=== PATIENT | female | born 1955 | race American Indian/Alaskan Native ===

== ENCOUNTER 2018-01-02 13:19 | Inpatient (IN) | payer MEDICARE ==
[2018-01-02] MEDS ORDERED: TYLENOL PO ONE (13:55)
--- NOTE | 2018-01-02 13:55 | Emergency Department Report ---
ED Fall HPI - General Chief Complaint: Fall Stated Complaint: MISSED DIALYSIS Time Seen by Provider: 01/02/18 13:50 Source: patient, EMS Mode of arrival: Stretcher Limitations: No Limitations - History of Present Illness Initial Comments: Patient said 3 days ago while she was sleeping on her bed at home, suddenly she got startled by her Cat. She got up quickly from bed and she fell hitting her face. Because of that she was to sore to go to dialysis yesterday. Patient says she is having shortness of breath and she is not dialysis yesterday. 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 (3) Fall Witnessed: no Place Fall Occurred: home Loss of Consciousness: none Prolonged Down Time?: no Symptoms Prior to Fall: none Location: head, face, neck Severity: moderate Severity scale (0 -10): 5 Quality: sharp Context: other (Fell out of bed) Associated Symptoms: headache, neck pain, shortness of breath, other (Facial Pain) - Related Data Allergies Allergy/AdvReac Type Severity Reaction Status Date / Time No Known Allergies Allergy Unverified 01/02/18 13:47 ED Review of Systems ROS: Stated complaint: MISSED DIALYSIS Other details as noted in HPI Comment: All other systems reviewed and negative Constitutional: denies: chills, fever Eyes: denies: eye pain ENT: other (Facial pain). denies: ear pain Respiratory: orthopnea, shortness of breath, SOB with exertion, SOB at rest. denies: cough Cardiovascular: orthopnea. denies: chest pain, palpitations, dyspnea on exertion, edema, syncope Endocrine: no symptoms reported Gastrointestinal: vomiting, constipation. denies: abdominal pain, nausea, diarrhea Genitourinary: denies: urgency, dysuria, frequency Musculoskeletal: denies: back pain Skin: denies: rash, lesions, change in color Neurological: headache. denies: weakness, numbness, paresthesias, confusion, abnormal gait Psychiatric: denies: anxiety, depression Hematological/Lymphatic: denies: easy bleeding, easy bruising ED Past Medical Hx - Past Medical History Previous Medical History?: Yes Hx Hypertension: Yes Hx Diabetes: Yes Hx Renal Disease: Yes - Surgical History Past Surgical History?: Yes - Social History Smoking Status: Never Smoker Substance Use Type: None ED Physical Exam - General Limitations: No Limitations, Other General appearance: alert, in no apparent distress - Head Head exam: Present: atraumatic, normocephalic, normal inspection - Eye Eye exam: Present: normal appearance, PERRL, EOMI Pupils: Present: normal accommodation - ENT ENT exam: Present: normal exam, normal orophraynx, mucous membranes moist - Neck Neck exam: Present: normal inspection, tenderness, full ROM - Respiratory Respiratory exam: Present: normal lung sounds bilaterally. Absent: respiratory distress, wheezes, rales, rhonchi, stridor - Cardiovascular Cardiovascular Exam: Present: regular rate, normal rhythm, normal heart sounds - GI/Abdominal GI/Abdominal exam: Present: soft, normal bowel sounds. Absent: distended, tenderness, guarding, rebound, rigid - Extremities Exam Extremities exam: Present: normal inspection, full ROM, normal capillary refill. Absent: tenderness, pedal edema, joint swelling, calf tenderness - Back Exam Back exam: Present: normal inspection, full ROM. Absent: tenderness, CVA tenderness (R), CVA tenderness (L), paraspinal tenderness, vertebral tenderness - Neurological Exam Neurological exam: Present: alert, oriented X3, CN II-XII intact - Psychiatric Psychiatric exam: Present: normal affect, normal mood - Skin Skin exam: Present: warm, dry, intact, normal color. Absent: rash ED Course Vital Signs 01/02/18 01/02/18 01/02/18 13:44 15:34 16:44 Temperature 98 F 97.4 F L Pulse Rate 66 70 71 Pulse Rate [ Anterior Bilateral Throughout] Respiratory 16 20 Rate Respiratory Rate [Anterior Bilateral Throughout] Blood Pressure 174/92 202/75 Blood Pressure [223/100] O2 Sat by Pulse 98 95 Oximetry 01/02/18 01/02/18 01/02/18 17:20 17:31 17:45 Temperature Pulse Rate 84 86 Pulse Rate [ 84 Anterior Bilateral Throughout] Respiratory Rate Respiratory 20 Rate [Anterior Bilateral Throughout] Blood Pressure Blood Pressure 135/69 117/74 [223/100] O2 Sat by Pulse Oximetry 01/02/18 01/02/18 01/02/18 17:50 19:30 19:45 Temperature 97.7 F Pulse Rate 84 80 Pulse Rate [ 90 Anterior Bilateral Throughout] Respiratory 15 Rate Respiratory 20 Rate [Anterior Bilateral Throughout] Blood Pressure 105/50 125/66 Blood Pressure [223/100] O2 Sat by Pulse Oximetry 01/02/18 20:00 Temperature Pulse Rate 85 Pulse Rate [ Anterior Bilateral Throughout] Respiratory Rate Respiratory Rate [Anterior Bilateral Throughout] Blood Pressure 111/61 Blood Pressure [223/100] O2 Sat by Pulse Oximetry - Reevaluation(s) Reevaluation #1: 01/02/18 17:15 I consulted the wastewater project manager reconditioner Dr Rudd. She agreed with the medical management being given to the patient by me in the emergency room currently. She said she will send the dialysis nurse to dialyze the patient immediately. I also consulted the industrial controller reconditioner Dr. Dove. I sent the patient's EKG to him and he over read the EKG and said the patient is not having a myocardial infarction currently. He also agreed with the management being given to the patient in the ED currently. I consulted the hospitalist on-call Dr. Ta and discussed the patient care with him. He will rule out admitted patient to the hospital for further evaluation and management. ED Medical Decision Making - Lab Data Result diagrams: 01/02/18 15:30 01/02/18 16:09 - EKG Data -: EKG Interpreted by Me EKG shows normal: sinus rhythm Rate: normal (65) - EKG Data When compared to previous EKG there are: previous EKG unavailable Interpretation: nonspecific ST-T wave oj, LVH, other (Q waves in the anterior leads. ) - Radiology Data Radiology results: report reviewed, image reviewed - Medical Decision Making S/P Fall. ESRD on Hemodialysis. Head Injury. Critical Care Time: Yes Critical care time in (mins) excluding proc time.: 68 Critical care attestation.: If time is entered above; I have spent that time in minutes in the direct care of this critically ill patient, excluding procedure time. Multiple consultants with different specialties was done by me. Review of labs , EKG, radiology report etc. Multiple bedside evaluations was also done by me. ED Disposition Clinical Impression: ESRD (end stage renal disease) on dialysis, Acute hyperkalemia, Elevated troponin level, Electrolyte imbalance, Metabolic acidosis Fall Qualifiers: Encounter type: initial encounter Qualified Code(s): W19.XXXA - Unspecified fall, initial encounter Facial contusion Qualifiers: Encounter type: initial encounter Qualified Code(s): S00.83XA - Contusion of other part of head, initial encounter Disposition: DC-09 OP ADMIT IP TO THIS HOSP Is pt being admited?: Yes Does the pt Need Aspirin: No Condition: Stable Time of Disposition: 17:20
--- NOTE | 2018-01-02 15:11 | XRay Report ---
FINAL REPORT EXAM: XR CHEST 1V AP HISTORY: Fall TECHNIQUE: Frontal chest x-ray performed portably and upright Comparison: None FINDINGS: Heart size is upper limits normal. There is a split dual lumen catheter present tips in the region of the cavoatrial junction. No focal infiltrate. No pneumothorax. No pulmonary vascular congestion. No pneumothorax. The proximal catheter ports project over the right lung base obscuring some of the details. Right acromioclavicular degenerative arthritis. IMPRESSION: Heart size upper limits normal. Nonacute chest. Proximal right Port-A-Cath somewhat obscures the right lung base. No pneumothorax. No definite displaced rib fractures, limited assessment on a portable chest x-ray in a patient with larger body habitus.
[2018-01-02 15:37] LABS: Basophils # (Auto) 0.1 K/mm3 (0.0-0.1); Basophils % (Auto) 0.6 % (0.0-1.8); Eosinophils % (Auto) 0.4 % (0.0-4.3); Hematocrit 34.1 % (30.3-42.9); Hemoglobin 10.7 gm/dl (10.1-14.3); Lymphocytes # (Auto) 1.1 K/mm3 (1.2-5.4); Lymphocytes % (Auto) 13.1 % (13.4-35.0); Mean Corpuscular HGB Conc 31 % (30-34); Mean Corpuscular Hemoglobin 30 pg (28-32); Mean Corpuscular Volume 94 fl (79-97); Monocytes # (Auto) 0.4 K/mm3 (0.0-0.8); Monocytes % (Auto) 4.8 % (0.0-7.3); Platelet Count 309 K/mm3 (140-440); Red Blood Count 3.62 M/mm3 (3.65-5.03); Red Cell Distribution Width 18.8 % (13.2-15.2)
[2018-01-02 16:03] LABS: INR 1.04 (0.87-1.13)
[2018-01-02 16:04] LABS: Partial Thromboplastin Time 34.3 Sec. (24.2-36.6)
[2018-01-02 16:28] LABS: Chol/HDL Ratio 3.54 %
[2018-01-02] MEDS ORDERED: APRESOLINE IV ONE (16:30)
[2018-01-02 16:32] LABS: Albumin 4.3 g/dL (3.9-5); Calcium 9.3 mg/dL (8.4-10.2)
[2018-01-02] MEDS ORDERED: KIONEX PR ONE (16:56)
[2018-01-02] MEDS ORDERED: PROVENTIL IH ONE (16:56)
[2018-01-02] MEDS ORDERED: D50W (25GM) Syringe IV ONE ×2 (16:57)
[2018-01-02] MEDS ORDERED: NACL 0.9% 100 ML IV PRN ×3 (17:19→20:31)
[2018-01-02] MEDS ORDERED: HumuLIN R IV ONE (17:20)
[2018-01-02] MEDS ORDERED: HumuLIN R ONE (17:23)
--- NOTE | 2018-01-02 17:26 | Consultation ---
History of Present Illness - Reason for Consult Consult date: 01/02/18 end stage renal disease, hyperkalemia - History of Present Illness Mrs. Lyons is a 62yo with ESRD on HD TTS who presented to the ED with shortness of breath Her last dialysis treatment was on . She reports fall at home w/ facial injury that evening. She did not go to dialysis on Wednesday as she was instructed by her outpatient dialysis clinic that she would need to go to the ED for evaluation/clearance prior to receiving dialysis. Of note, Mrs. Lyons only dialyzes appx 1.5 hours instead of prescribed treatment time due to headaches during dialysis. Labs in the ED notable for K 8.9 Past History Past Medical History: diabetes, ESRD, hypertension Social history: no significant social history Family history: no significant family history Medications and Allergies Allergies Allergy/AdvReac Type Severity Reaction Status Date / Time No Known Allergies Allergy Unverified 01/02/18 13:47 Active Meds: Active Medications Calcium Gluconate 1,000 mg/ (Sodium Chloride) 110 mls @ 660 mls/hr IV ONCE.ED ONE Stop: 01/02/18 18:09 Sodium Bicarbonate (Sodium Bicarbonate) 50 meq IV ONCE ONE Stop: 01/02/18 18:01 Review of Systems All systems: negative Exam - Vital Signs Vital signs: Vital Signs Temp Pulse Resp BP Pulse Ox 98 F 66 16 174/92 98 01/02/18 13:44 01/02/18 13:44 01/02/18 13:44 01/02/18 13:44 01/02/18 13:44 - General Appearance General appearance: well-developed, well-nourished, other (uremic fetor) EENT: ATNC Respiratory: Clear to Ascultation Heart: regular, S1S2 Gastrointestinal: Present: normal. Absent: tenderness, distended Integumentary: no rash, warm and dry Musculoskeletal: Present: other (+trace edema) Psychiatric: cooperative Results - Lab Results 01/02/18 15:30 01/02/18 16:09 Most recent lab results Calcium 9.3 mg/dL (8.4-10.2) 01/02/18 16:09 Assessment and Plan Assesment: * End stage renal disease * Severe hyperkalemia * Uremia * Hypertension * Medical noncompliance Plan: * STAT dialysis ordered - patient to dialyze in ED or in ICU; due to K 8.9 w/ EKG changes, will not dialyze patient in dialysis unit - discussed with ED charge authorizer and hospitality house supervisor * Medical management of lytes per ED MD * Repeat BMP following dialysis treatment * Will plan for dialysis in the AM * Renal diet * Dose medications for renal function
--- NOTE | 2018-01-02 17:27 | Cat Scan Report ---
FINAL REPORT PROCEDURE: CT CERVICAL SPINE WO CON TECHNIQUE: Computerized tomography of the cervical spine was performed from the skull base to T1 without contrast material. HISTORY: Fall COMPARISON: No prior studies are available for comparison. FINDINGS: There is no evidence of acute fracture or subluxation. Moderate facet arthritis visualized on the left C5-C6. Posterior elements appear intact. There appears to be separate ossification center of the posterior aspect of the posterior spinous process of C7. The prevertebral soft tissues appear normal. There appears to be an osteophytic spur projecting inferiorly from the anterior ring of C1. This appears to be separate from the anterior ring of C1 although without hematoma or significant soft tissue swelling. This may related to previous fracture of the osteophyte. The ring of C1 and dens appear to be intact. This is best visualized on sagittal reconstruction image 72 series 602. No focal disc herniation or spinal stenosis is visualized. Calcifications are seen in the bryant of the right carotid artery indicating atherosclerotic disease. A portion of central venous line entering from the right partially visualized. IMPRESSION: Facet arthritis as described. No definite acute fracture or subluxation is seen. Osteophytic spur appears to project inferiorly from the anterior ring of C1. This is best visualized on the sagittal views. This appears to be separate from the anterior ring of C1 although without hematoma or significant soft tissue swelling. This may be related to previous fracture of the osteophyte. The ring of C1 and the dens however appear intact. Correlation with clinical presentation and physical exam recommended. If further evaluation is clinically indicated MRI of the cervical spine could be obtained. Central venous line partially visualized. Atherosclerosis right carotid artery.
--- NOTE | 2018-01-02 17:28 | Cat Scan Report ---
FINAL REPORT PROCEDURE: CT HEAD/BRAIN WO CON TECHNIQUE: Computerized tomography of the head was performed without contrast material. HISTORY: Trauma. Fell. Pain. COMPARISON: No prior studies are available for comparison. FINDINGS: Brain: There is no evidence of intracranial hemorrhage. No parenchymal hemorrhage is seen. No mass lesions or mass effect is identified. No abnormal extra-axial fluid collections or masses are seen. There is some decreased density seen in the periventricular white matter without mass effect. This is fairly symmetric and does not exhibit any mass effect consistent with gliosis probably on the basis of microvascular disease or white matter changes of aging. Ventricles: The ventricles, sulcal pattern and fissures are prominent consistent with atrophy. Bones: No evidence of acute fracture. Paranasal sinuses: Visualized portions are clear. Mastoid air cells: clear IMPRESSION: There is evidence of mild atrophy and gliosis. No acute abnormalities are seen. No evidence of intracranial hemorrhage or skull fracture
--- NOTE | 2018-01-02 17:39 | Cat Scan Report ---
FINAL REPORT PROCEDURE: CT FACIAL BONES WO CON TECHNIQUE: Computerized tomography of the facial bones and soft tissues with axial and coronal sections performed from the cranial aspect of the frontal sinuses to the caudal portion of the mandible without contrast material. HISTORY: Trauma. Fell. Pain. COMPARISON: No prior studies are available for comparison. FINDINGS: No facial fractures are identified. The nasal bone, the orbits, the zygomas and zygomatic arches as well as the bryant of the paranasal sinuses and mandible are intact. There is however significant bone loss at the insertion of 1 of the posterior molars in the right maxillary region seen best on sagittal reconstruction image 53 series 602. Dental consultation is recommended. There is also focal bone loss in the posterior aspect of the left side of the mandible seen on sagittal image 28 series 602. Paranasal sinuses are clear. The mastoid air cells are clear. IMPRESSION: No facial fractures are identified. Severe dental disease visualized as described. Dental consultation is suggested.
[2018-01-02] MEDS ORDERED: ASPIRIN PO ONE (17:56)
[2018-01-02] MEDS ORDERED: CALCIUM GLUCONATE 1,000 MG in NACL 0.9% 100 ML IV ONE (18:00)
[2018-01-02] MEDS ORDERED: SODIUM BICARBONATE IV ONE (18:00)
[2018-01-02] MEDS ORDERED: BABY ASPIRIN ONE (18:04)
[2018-01-02] MEDS ORDERED: ZOFRAN IV PRN ×2 (20:31→23:36)
[2018-01-02 20:53] LABS: Hepatitis B Core IgM Non-Reactive (NonReactive); Hepatitis B Surface Antigen Non-Reactive (Negative); Hepatitis C Virus Antibody Non-Reactive (NonReactive)
[2018-01-02] MEDS ORDERED: ULTRAM PO PRN (22:27)
[2018-01-02] MEDS ORDERED: ULTRAM ONE (22:37)
[2018-01-02] MEDS ORDERED: MORPHINE IV PRN (23:36)
[2018-01-02] MEDS ORDERED: SODIUM CHLORIDE FLUSH SYRINGE 10 ML IV PRN (23:36)
[2018-01-02] MEDS ORDERED: PERCOCET 5/325 PO PRN (23:36)
[2018-01-02] MEDS ORDERED: TYLENOL PO PRN (23:36)
[2018-01-03] MEDS ORDERED: NACL 0.9 (PRIMING MACHINE ONLY DIALYSIS) MC ONE (00:26)
--- NOTE | 2018-01-03 02:21 | Event Note ---
Date: 01/02/18 See Dictated H/p in reports Hyperkalemia ESRD on HD HTN
[2018-01-03] MEDS ORDERED: PROVENTIL IH ONE (05:30)
[2018-01-03 06:13] LABS: Basophils % (Auto) 0.4 % (0.0-1.8); Eosinophils # (Auto) 0.1 K/mm3 (0.0-0.4); Eosinophils % (Auto) 0.7 % (0.0-4.3); Hematocrit 32.4 % (30.3-42.9); Hemoglobin 10.2 gm/dl (10.1-14.3); Lymphocytes # (Auto) 1.1 K/mm3 (1.2-5.4); Lymphocytes % (Auto) 13.8 % (13.4-35.0); Mean Corpuscular HGB Conc 32 % (30-34); Mean Corpuscular Hemoglobin 30 pg (28-32); Mean Corpuscular Volume 94 fl (79-97); Monocytes # (Auto) 0.8 K/mm3 (0.0-0.8); Monocytes % (Auto) 9.9 % (0.0-7.3); Platelet Count 275 K/mm3 (140-440); Red Blood Count 3.46 M/mm3 (3.65-5.03)
[2018-01-03 06:40] LABS: Albumin 3.9 g/dL (3.9-5); Calcium 8.5 mg/dL (8.4-10.2)
[2018-01-03] MEDS ORDERED: APRESOLINE IV PRN (08:19)
--- NOTE | 2018-01-03 08:19 | History and Physical Report ---
CHIEF COMPLAINT: Shortness of breath for 1 day. HISTORY OF PRESENT ILLNESS: A 62-year-old with history of end-stage renal disease and hypertension and noncompliance, presents to the ER for shortness of breath. The patient apparently had a fall on and did not go for dialysis on Wednesday. The patient was asked to come to the Emergency Room for evaluation before coming for dialysis on Wednesday. The patient has some facial swelling. No loss of consciousness. Fell because of weakness. No fever, no chills. Orthopnea present. Shortness of breath on minimal exertion present. PAST MEDICAL HISTORY: Significant for diabetes, hypertension, end-stage renal disease. PAST SURGICAL HISTORY: AV grafts. FAMILY HISTORY: Hypertension. SOCIAL HISTORY: Does not smoke. No alcohol, no recreational drugs. REVIEW OF SYSTEMS: Significant for weakness and facial swelling. Also shortness of breath and orthopnea. Otherwise, 14-point review of systems negative. PHYSICAL EXAMINATION: GENERAL: Young elderly female lying in bed, obese. VITAL SIGNS: Blood pressure is 142/77, temperature is 100.3, pulse is 87, respirations are 18. HEENT: Unremarkable. Slight facial tissue swelling present. NECK: Supple, no lymphadenopathy, no thyromegaly. LUNGS: Clear to auscultation and percussion. CARDIOVASCULAR SYSTEM: S1, S2 heard. No gallop, no murmur, no rub. Apical impulse in left fifth intercostal space, midclavicular line. ABDOMEN: Soft and benign. No hepatosplenomegaly. No guarding, no rigidity. Hernial orifices are normal. EXTREMITIES: Good pedal pulses. No pedal edema. CENTRAL NERVOUS SYSTEM: Alert and oriented x 4, nonfocal exam. SKIN: Normal. LABORATORY DATA: Significant for potassium of 8.9, white count is 8600, hemoglobin is 10.7, hematocrit is 34.1, platelet count is 309,000. Troponin 0.179. Sodium is slightly low 135, repeat was 140. BUN and creatinine is 96 and 9.6. Bicarb is 20. LFTs are normal. Triglycerides are 207. Cholesterol is 216, LDL is 129, HDL is 61. IMAGING STUDIES: Facial CT was done, did not show any facial fractures. CT of the head, no acute findings. No evidence of intracranial hemorrhage. C-spine CT, facet arthritis present. No definite acute fracture or subluxation. Degenerative joint disease present. ASSESSMENT AND PLAN: 1. Severe hyperkalemia. The patient was given Kayexalate and insulin and dextrose in the ER and was taken for emergent hemodialysis with low potassium bath. Discussed with Dr. Rudd. Repeat potassium should be normal. Will repeat the potassium after the dialysis. 2. End-stage renal disease requiring dialysis. The patient has been noncompliant and also not being dialyzed enough, the patient says for only 1-1/2 hours, secondary to headaches. Counseled the patient to get the hemodialysis on a regular basis and for the real time analyst. Continue hemodialysis on Wednesday, , Wednesday schedule. The patient symptomatically better, can be discharged if the potassium comes back to normal. 3. Metabolic acidosis secondary to uremia and end-stage renal disease. 4. Elevated troponin secondary to end-stage renal disease. 5. Hypertension. No home medications on the chart. Will get the home medications started. Home medications not reconciled because they are not available. Will trend the blood pressure. 6. Volume overload. The patient should improve with increased ultrafiltration. The patient is being taken for emergent hemodialysis. 7. Deep venous thrombosis prophylaxis, heparin 5000 q. 12. 8. Fall with facial swelling, fracture is ruled out. Symptomatic treatment. PROGNOSIS: Fair. JOB# [id number] WILLARD/BRODIE
[2018-01-03] MEDS: CATAPRES PO SCH ×3 (08:33→21:01)
[2018-01-03] MEDS: APRESOLINE PO SCH ×3 (08:34→21:01)
[2018-01-03] MEDS ORDERED: NON-FORMULARY (Olmesartan (Nf) 20 MG) PO SCH (10:00)
[2018-01-03] MEDS ORDERED: NON-FORMULARY (Nifedipine [Nifedipine Er] 60 MG) PO SCH (10:00)
[2018-01-03] MEDS: DILAUDID IV PRN ×2 (10:40→13:47)
[2018-01-03] MEDS: PROCARDIA XL PO SCH ×2 (10:40→21:01)
[2018-01-03] MEDS: SODIUM CHLORIDE FLUSH SYRINGE 10 ML IV SCH ×2 (10:40→21:02)
[2018-01-03] MEDS: HEPARIN SUB-Q SCH ×2 (11:16→21:01)
--- NOTE | 2018-01-03 11:48 | Consultation ---
History of Present Illness Consult date: 01/03/18 Consult reason: other (Abnormal ECG) History of present illness: This is a 62 year old woman with a history of end stage renal disease on dialysis and chronic hypertension. She presented to the hospital with shortness of breath, volume overload secondary to missed dialysis. Her initial ECG shows a sinus rhythm with ST elevation associated with initial labs that showed severe hyperkalemia of 8.9. The potassium has been corrected following hemodialysis. A follow up ECG is pending. Patient has no chest pain, shortness of breath or palpitations. She denies a history of coronary artery disease. The patient states she underwent a cardiac cath 3 weeks ago at [facility] that she reports as no significant coronary artery disease. Past History Past Medical History: diabetes, ESRD, hypertension Family history: no significant family history Medications and Allergies Allergies Allergy/AdvReac Type Severity Reaction Status Date / Time No Known Allergies Allergy Unverified 01/02/18 13:47 Home Medications Medication Instructions Recorded Confirmed Last Taken Type Hydralazine HCl 50 mg PO TID 01/03/18 01/03/18 Unknown History NIFEdipine [Nifedipine ER] 60 mg PO BID 01/03/18 01/03/18 Unknown History Olmesartan (Nf) [Benicar (Nf)] 20 mg PO BID 01/03/18 01/03/18 Unknown History cloNIDine [Catapres] 0.2 mg PO TID 01/03/18 01/03/18 Unknown History Active Meds: Active Medications Acetaminophen (Tylenol) 650 mg PO Q4H PRN PRN Reason: Pain MILD(1-3)/Fever >100.5/CROOK Last Admin: 01/03/18 01:04 Dose: 650 mg Clonidine HCl (Catapres) 0.2 mg PO TID [facility] Last Admin: 01/03/18 08:33 Dose: 0.2 mg Heparin Sodium (Porcine) (Heparin) 5,000 unit SUB-Q Q12HR [facility] Last Admin: 01/03/18 11:16 Dose: 5,000 unit Hydralazine HCl (Apresoline) 10 mg IV Q30MIN PRN PRN Reason: Hypertension Hydralazine HCl (Apresoline) 100 mg PO TID [facility] Last Admin: 01/03/18 08:34 Dose: 100 mg Hydromorphone HCl (Dilaudid) 0.5 mg IV Q3H PRN PRN Reason: Pain , Severe (7-10) Last Admin: 01/03/18 10:40 Dose: 0.5 mg Sodium Chloride (Nacl 0.9%) 100 mls @ 999 mls/hr IV EDEN PRN PRN Reason: Hypotension Losartan Potassium (Cozaar) 50 mg PO QDAY [facility] Morphine Sulfate (Morphine) 2 mg IV Q4H PRN PRN Reason: Pain, Moderate (4-6) Nifedipine (Procardia Xl) 60 mg PO BID [facility] Last Admin: 01/03/18 10:40 Dose: 60 mg Ondansetron HCl (Zofran) 4 mg IV EDEN PRN PRN Reason: Nausea Last Admin: 01/02/18 20:56 Dose: 4 mg Ondansetron HCl (Zofran) 4 mg IV Q8H PRN PRN Reason: Nausea And Vomiting Oxycodone/Acetaminophen (Percocet 5/325) 1 tab PO Q6H PRN PRN Reason: Pain, Moderate (4-6) Sodium Chloride (Sodium Chloride Flush Syringe 10 Ml) 10 ml IV BID [facility] Last Admin: 01/03/18 10:40 Dose: 10 ml Sodium Chloride (Sodium Chloride Flush Syringe 10 Ml) 10 ml IV PRN PRN PRN Reason: LINE FLUSH Tramadol HCl (Ultram) 50 mg PO Q6H PRN PRN Reason: Pain, Moderate (4-6) Last Admin: 01/02/18 22:43 Dose: 50 mg Physical Examination Vital Signs Temp Pulse Resp BP Pulse Ox 98 F 66 16 174/92 98 01/02/18 13:44 01/02/18 13:44 01/02/18 13:44 01/02/18 13:44 01/02/18 13:44 General appearance: no acute distress HEENT: Positive: PERRL Cardiac: Positive: Reg Rate and Rhythm Lungs: Positive: Decreased Breath Sounds Results 01/03/18 04:47 01/03/18 04:47 Cardiac Enzymes 01/02/18 01/03/18 Range/Units 16:09 04:47 AST 15 14 (5-40) units/L Coagulation 01/02/18 Range/Units 15:30 PT 14.1 (12.2-14.9) Sec. INR 1.04 (0.87-1.13) APTT 34.3 (24.2-36.6) Sec. Lipids 01/02/18 Range/Units 15:30 Triglycerides 207 H (2-149) mg/dL Cholesterol 216 H (50-199) mg/dL HDL Cholesterol 61 H (40-59) mg/dL Cholesterol/HDL Ratio 3.54 % CBC 01/02/18 01/03/18 Range/Units 15:30 04:47 WBC 8.6 8.1 (4.5-11.0) K/mm3 RBC 3.62 L 3.46 L (3.65-5.03) M/mm3 Hgb 10.7 10.2 (10.1-14.3) gm/dl Hct 34.1 32.4 (30.3-42.9) % Plt Count 309 275 (140-440) K/mm3 Lymph # 1.1 L 1.1 L (1.2-5.4) K/mm3 Bradley # 0.4 0.8 (0.0-0.8) K/mm3 Eos # 0.0 0.1 (0.0-0.4) K/mm3 Baso # 0.1 0.0 (0.0-0.1) K/mm3 Comprehensive Metabolic Panel 01/02/18 01/02/18 01/03/18 Range/Units 16:09 20:15 04:47 Sodium 135 L 140 140 (137-145) mmol/L Potassium 8.9 H* 4.5 D 4.2 (3.6-5.0) mmol/L Chloride 95.2 L 94.3 L 92.3 L (98-107) mmol/L Carbon Dioxide 20 L 23 28 (22-30) mmol/L BUN 96 H 53 H 21 H (7-17) mg/dL Creatinine 9.6 H 6.0 H 4.5 H (0.7-1.2) mg/dL Glucose 52 L 136 H 74 (65-100) mg/dL Calcium 9.3 9.0 8.5 (8.4-10.2) mg/dL AST 15 14 (5-40) units/L ALT 12 11 (7-56) units/L Alkaline Phosphatase 76 74 (35-129) units/L Total Protein 6.8 7.1 (6.3-8.2) g/dL Albumin 4.3 3.9 (3.9-5) g/dL Assessment and Plan Volume overload s/t missed dialysis Abnormal ECG s/t hyperkalemia of 8.9 on presentation pt reports no significant CAD on LHC at [facility] 3wks ago Hypertension Diabetes Obtain a prior ECG and cath report from [facility] for review.
--- NOTE | 2018-01-03 13:50 | Progress Note ---
Assessment and Plan Assesment: * End stage renal disease * Severe hyperkalemia * Uremia * Hypertension * Medical noncompliance Plan: * HD today, and q tthsat * Repeat BMP following dialysis treatment * uf as tolerated with hd * stress compliance * Renal diet * Dose medications for renal function Subjective Date of service: 01/03/18 Principal diagnosis: esrd, hyperkalemia Interval history: resting well in bed today Objective - Exam Narrative Exam: - General Appearance General appearance: well-developed, well-nourished, other (uremic fetor) EENT: ATNC Respiratory: Clear to Ascultation Heart: regular, S1S2 Gastrointestinal: Present: normal. Absent: tenderness, distended Integumentary: no rash, warm and dry Musculoskeletal: Present: other (+trace edema) Psychiatric: cooperative - Vital Signs Vital signs: Vital Signs - 12hr 01/03/18 01/03/18 01/03/18 02:20 05:25 05:27 Temperature 97.8 F Pulse Rate 84 Pulse Rate [ 86 Anterior Bilateral Throughout] Pulse Rate [ 87 Apical] Respiratory 20 22 Rate Respiratory 16 Rate [Anterior Bilateral Throughout] Blood Pressure 149/82 Blood Pressure [223/100] O2 Sat by Pulse 96 100 Oximetry 01/03/18 01/03/18 01/03/18 05:37 07:36 08:33 Temperature 98.4 F Pulse Rate 87 89 Pulse Rate [ 85 Anterior Bilateral Throughout] Pulse Rate [ Apical] Respiratory 20 Rate Respiratory 14 Rate [Anterior Bilateral Throughout] Blood Pressure 239/99 Blood Pressure 239/99 [223/100] O2 Sat by Pulse 100 Oximetry 01/03/18 01/03/18 10:30 12:35 Temperature Pulse Rate 88 88 Pulse Rate [ Anterior Bilateral Throughout] Pulse Rate [ Apical] Respiratory Rate Respiratory Rate [Anterior Bilateral Throughout] Blood Pressure Blood Pressure 158/61 [223/100] O2 Sat by Pulse Oximetry - Lab 01/03/18 04:47 01/03/18 04:47 Most recent lab results Calcium 8.5 mg/dL (8.4-10.2) 01/03/18 04:47
[2018-01-03] MEDS ORDERED: CEPHULAC PO PRN (17:01)
--- NOTE | 2018-01-03 17:36 | Progress Note ---
Assessment and Plan Severe hyperkalemia ESRD on HD TTS Metabolic acidosis Elevated troponin HTN, accelerated Volume Overload due to missed HD s/p fall with facial swelling DVT - Cont to monitor K level, which now improved - plan for HD today, renal consulted - resume home meds for BP control with iv hydralazine as needed - cardiology consulted for elevated trop, recommended medical Mx - CT head unremarkable, consult PT for d/c clearance - monitor BP and electrolytes - likely d/c home tomorrow if BP improves and clears by PT Brief history: Mrs. Lyons is a 62yo with ESRD on HD TTS who presented to the ED with shortness of breath. Her last dialysis treatment was on . She reports fall at home w/ facial injury that evening. She did not go to dialysis on Wednesday as she was instructed by her outpatient dialysis clinic that she would need to go to the ED for evaluation/clearance prior to receiving dialysis. Labs in the ED notable for K 8.9 Subjective Date of service: 01/03/18 Principal diagnosis: esrd, hyperkalemia Interval history: Pt seen and examined c/o SOB and chest tightness Getting hD today Objective - Constitutional Vitals: Vital Signs - 12hr 01/03/18 01/03/18 01/03/18 05:37 07:36 08:33 Temperature 98.4 F Pulse Rate 87 89 Pulse Rate [ 85 Anterior Bilateral Throughout] Respiratory 20 Rate Respiratory 14 Rate [Anterior Bilateral Throughout] Blood Pressure 239/99 Blood Pressure 239/99 [223/100] O2 Sat by Pulse 100 Oximetry 01/03/18 01/03/18 01/03/18 10:30 12:35 14:08 Temperature 99.1 F Pulse Rate 88 88 89 Pulse Rate [ Anterior Bilateral Throughout] Respiratory 18 Rate Respiratory Rate [Anterior Bilateral Throughout] Blood Pressure Blood Pressure 158/61 167/69 [223/100] O2 Sat by Pulse 96 Oximetry 01/03/18 01/03/18 01/03/18 14:50 15:00 15:15 Temperature Pulse Rate 84 82 81 Pulse Rate [ Anterior Bilateral Throughout] Respiratory 18 Rate Respiratory Rate [Anterior Bilateral Throughout] Blood Pressure 164/71 180/88 176/84 Blood Pressure [223/100] O2 Sat by Pulse Oximetry 01/03/18 01/03/18 01/03/18 15:30 15:45 16:00 Temperature Pulse Rate 83 82 80 Pulse Rate [ Anterior Bilateral Throughout] Respiratory Rate Respiratory Rate [Anterior Bilateral Throughout] Blood Pressure 168/80 170/84 174/75 Blood Pressure [223/100] O2 Sat by Pulse Oximetry 01/03/18 01/03/18 01/03/18 16:15 16:30 16:45 Temperature Pulse Rate 80 82 81 Pulse Rate [ Anterior Bilateral Throughout] Respiratory Rate Respiratory Rate [Anterior Bilateral Throughout] Blood Pressure 159/76 168/82 155/78 Blood Pressure [223/100] O2 Sat by Pulse Oximetry 01/03/18 01/03/18 17:00 17:15 Temperature Pulse Rate 81 83 Pulse Rate [ Anterior Bilateral Throughout] Respiratory Rate Respiratory Rate [Anterior Bilateral Throughout] Blood Pressure 142/75 140/70 Blood Pressure [223/100] O2 Sat by Pulse Oximetry General appearance: Present: no acute distress, other (elderly) - EENT Eyes: PERRL, EOM intact ENT: hearing intact, clear oral mucosa Ears: bilateral: normal - Neck Neck: supple, normal ROM - Respiratory Respiratory effort: normal Respiratory: bilateral: CTA - Cardiovascular Rhythm: regular Heart Sounds: Present: S1 & S2. Absent: gallop, rub Extremities: pulses intact, No edema, normal color, Full ROM - Gastrointestinal General gastrointestinal: Present: soft, non-tender, non-distended, normal bowel sounds - Integumentary Integumentary: clear, warm, dry - Musculoskeletal Musculoskeletal: 1, strength equal bilaterally - Neurologic Neurologic: moves all extremities - Psychiatric Psychiatric: memory intact, appropriate mood/affect, intact judgment & insight - Labs CBC & Chem 7: 01/03/18 04:47 01/03/18 04:47 Labs: Abnormal lab results 01/02/18 01/02/18 01/02/18 Range/Units 15:30 17:15 20:15 RBC (3.65-5.03) M/mm3 RDW (13.2-15.2) % [place] % (Auto) (0.0-7.3) % Lymph # (1.2-5.4) K/mm3 Seg Neutrophils % (40.0-70.0) % Chloride 94.3 L (98-107) mmol/L BUN 53 H (7-17) mg/dL Creatinine 6.0 H (0.7-1.2) mg/dL Glucose 136 H (65-100) mg/dL POC Glucose 363 H (70-105) Hemoglobin A1c 7.1 H (4-6) % 01/02/18 01/03/18 01/03/18 Range/Units 21:43 04:47 04:47 RBC 3.46 L (3.65-5.03) M/mm3 RDW 18.0 H (13.2-15.2) % [place] % (Auto) 9.9 H (0.0-7.3) % Lymph # 1.1 L (1.2-5.4) K/mm3 Seg Neutrophils % 75.2 H (40.0-70.0) % Chloride 92.3 L (98-107) mmol/L BUN 21 H (7-17) mg/dL Creatinine 4.5 H (0.7-1.2) mg/dL Glucose (65-100) mg/dL POC Glucose 143 H (70-105) Hemoglobin A1c (4-6) % 01/03/18 Range/Units 13:54 RBC (3.65-5.03) M/mm3 RDW (13.2-15.2) % [place] % (Auto) (0.0-7.3) % Lymph # (1.2-5.4) K/mm3 Seg Neutrophils % (40.0-70.0) % Chloride (98-107) mmol/L BUN (7-17) mg/dL Creatinine (0.7-1.2) mg/dL Glucose (65-100) mg/dL POC Glucose 295 H (70-105) Hemoglobin A1c (4-6) %
[2018-01-03] MEDS ORDERED: NON-FORMULARY (Hydralazine Hcl [Hydralazine Hcl] 50 MG) PO SCH (20:00)
[2018-01-03] MEDS: COREG PO SCH (21:01)
[2018-01-03] MEDS ORDERED: LANTUS SUB-Q SCH (22:00)
[2018-01-03] MEDS ORDERED: NON-FORMULARY (Insulin Detemir [Levemir Vial] 20 UNIT) SQ SCH (22:00)
[2018-01-04 04:44] LABS: Calcium 8.2 mg/dL (8.4-10.2)
[2018-01-04] MEDS: APRESOLINE PO SCH ×3 (09:09→21:33)
[2018-01-04] MEDS: HEPARIN SUB-Q SCH ×2 (09:10→21:34)
[2018-01-04] MEDS: PROCARDIA XL PO SCH ×2 (09:10→21:32)
[2018-01-04] MEDS: COZAAR PO SCH (09:10)
[2018-01-04] MEDS: COREG PO SCH ×2 (09:10→21:32)
[2018-01-04] MEDS: CATAPRES PO SCH ×3 (09:10→21:33)
--- NOTE | 2018-01-04 10:23 | Progress Note ---
Assessment and Plan Volume overload s/t missed dialysis Abnormal ECG s/t hyperkalemia of 8.9 on presentation pt reports no significant CAD on LHC at [place] 3wks ago Hypertension Diabetes Subjective Date of service: 01/04/18 Principal diagnosis: esrd, hyperkalemia Interval history: Patient reports she is feeling better. She denies chest pain and shortness of breath. Objective Vital Signs Temp Pulse Resp BP BP Pulse Ox 01/04/18 07:51 98 01/04/18 05:43 98.0 F 81 20 124/50 100 01/03/18 23:17 99.8 F H 93 H 18 201/76 97 01/03/18 22:00 82 01/03/18 21:25 96 01/03/18 19:55 18 01/03/18 19:42 98.9 F 88 18 186/65 97 01/03/18 19:22 97.2 F L 82 18 168/82 01/03/18 19:00 80 173/81 01/03/18 18:45 85 165/78 01/03/18 18:30 84 160/66 01/03/18 18:15 84 159/83 01/03/18 18:00 84 182/91 01/03/18 17:45 81 156/74 01/03/18 17:30 81 170/84 01/03/18 17:15 83 140/70 01/03/18 17:00 81 142/75 01/03/18 16:45 81 155/78 01/03/18 16:30 82 168/82 01/03/18 16:15 80 159/76 01/03/18 16:00 80 174/75 01/03/18 15:45 82 170/84 01/03/18 15:30 83 168/80 01/03/18 15:15 81 176/84 01/03/18 15:00 82 180/88 01/03/18 14:50 84 18 164/71 01/03/18 14:08 99.1 F 89 18 167/69 96 01/03/18 12:35 88 01/03/18 10:30 88 158/61 - Physical Examination General: No Apparent Distress HEENT: Positive: PERRL Cardiac: Positive: Reg Rate and Rhythm Neuro: Positive: Grossly Intact - Labs and Meds Comprehensive Metabolic Panel 09/25/18 Range/Units 03:54 Sodium 130 L D (137-145) mmol/L Potassium 3.9 (3.6-5.0) mmol/L Chloride 90.4 L (98-107) mmol/L Carbon Dioxide 23 (22-30) mmol/L BUN 10 (7-17) mg/dL Creatinine 2.9 H (0.7-1.2) mg/dL Glucose 206 H (65-100) mg/dL Calcium 8.2 L (8.4-10.2) mg/dL
[2018-01-04] MEDS: SODIUM CHLORIDE FLUSH SYRINGE 10 ML IV SCH ×2 (13:09→21:34)
--- NOTE | 2018-01-04 13:14 | Progress Note ---
Assessment and Plan Assesment: * End stage renal disease * Severe hyperkalemia * Uremia * Hypertension * Medical noncompliance Plan: * HD q tthsat * uf as tolerated with hd * stress compliance * Renal diet * Dose medications for renal function * ok to dc from renal standpoint Subjective Date of service: 01/04/18 Principal diagnosis: esrd, hyperkalemia Interval history: resting well in bed today Objective - Exam Narrative Exam: - General Appearance General appearance: well-developed, well-nourished, other (uremic fetor) EENT: ATNC Respiratory: Clear to Ascultation Heart: regular, S1S2 Gastrointestinal: Present: normal. Absent: tenderness, distended Integumentary: no rash, warm and dry Musculoskeletal: Present: other (+trace edema) Psychiatric: cooperative - Vital Signs Vital signs: Vital Signs - 12hr 01/04/18 01/04/18 01/04/18 05:43 07:51 09:42 Temperature 98.0 F Pulse Rate 81 88 Respiratory 20 Rate Blood Pressure 124/50 153/61 Blood Pressure [223/100] O2 Sat by Pulse 100 98 98 Oximetry 01/04/18 01/04/18 10:00 11:39 Temperature 98.6 F Pulse Rate 84 87 Respiratory 16 Rate Blood Pressure Blood Pressure 178/82 [223/100] O2 Sat by Pulse 96 Oximetry - Lab 01/03/18 04:47 01/04/18 03:54 Most recent lab results Calcium 8.2 mg/dL (8.4-10.2) L 01/04/18 03:54
[2018-01-04] MEDS: DILAUDID IV PRN (14:30)
[2018-01-04] MEDS ORDERED: FIORICET PO PRN (17:26)
--- NOTE | 2018-01-04 17:53 | Progress Note ---
Addendum entered and electronically signed by CURT WAGNER MD 17:37: A/P continues: DM2 with hyperglycemia -Lantus dose increased -SSI started Original Note: Assessment and Plan Assessment and plan: Severe hyperkalemia -Resolved Volume Overload due to missed HD -Improved with dialysis ESRD on HD TTS -Nephrology following Metabolic acidosis, resolved Elevated troponin -Probably secondary to demand ischemia -Cardiology recommended medical management HTN Controlled on meds s/p fall with facial swelling -PT recommended home with home health and roller aid -adult protective caseworker consulted Headaches/Migraines -Fioricet started, dilaudid d/frederic Position: discharge patient in a.m. after home health has been set up. History Interval history: Patient complaining of severe headaches during dialysis Hospitalist Physical - Constitutional Vitals: Temp Pulse Resp BP Pulse Ox 97.2 F L 75 18 144/77 96 01/04/18 15:00 01/04/18 16:00 01/04/18 15:00 01/04/18 16:00 01/04/18 11:39 General appearance: Present: no acute distress - EENT Eyes: Present: PERRL, EOM intact ENT: hearing intact, clear oral mucosa - Neck Neck: Present: supple - Respiratory Respiratory effort: normal Respiratory: bilateral: CTA - Cardiovascular Rhythm: regular Heart Sounds: Present: S1 & S2 - Extremities Extremities: No edema - Abdominal General gastrointestinal: soft, non-tender, normal bowel sounds - Neurologic Neurologic: CNII-XII intact Results - Labs CBC & Chem 7: 01/03/18 04:47 01/04/18 03:54 Labs: Laboratory Last Values WBC 8.1 K/mm3 (4.5-11.0) 01/03/18 04:47 RBC 3.46 M/mm3 (3.65-5.03) L 01/03/18 04:47 Hgb 10.2 gm/dl (10.1-14.3) 01/03/18 04:47 Hct 32.4 % (30.3-42.9) 01/03/18 04:47 MCV 94 fl (79-97) 01/03/18 04:47 MCH 30 pg (28-32) 01/03/18 04:47 MCHC 32 % (30-34) 01/03/18 04:47 RDW 18.0 % (13.2-15.2) H 01/03/18 04:47 Plt Count 275 K/mm3 (140-440) 01/03/18 04:47 Lymph % (Auto) 13.8 % (13.4-35.0) 01/03/18 04:47 [place] % (Auto) 9.9 % (0.0-7.3) H 01/03/18 04:47 Eos % (Auto) 0.7 % (0.0-4.3) 01/03/18 04:47 Baso % (Auto) 0.4 % (0.0-1.8) 01/03/18 04:47 Lymph # 1.1 K/mm3 (1.2-5.4) L 01/03/18 04:47 [place] # 0.8 K/mm3 (0.0-0.8) 01/03/18 04:47 Eos # 0.1 K/mm3 (0.0-0.4) 01/03/18 04:47 Baso # 0.0 K/mm3 (0.0-0.1) 01/03/18 04:47 Seg Neutrophils % 75.2 % (40.0-70.0) H 01/03/18 04:47 Seg Neutrophils # 6.1 K/mm3 (1.8-7.7) 01/03/18 04:47 PT 14.1 Sec. (12.2-14.9) 01/02/18 15:30 INR 1.04 (0.87-1.13) 01/02/18 15:30 APTT 34.3 Sec. (24.2-36.6) 01/02/18 15:30 Sodium 130 mmol/L (137-145) L D 01/04/18 03:54 Potassium 3.9 mmol/L (3.6-5.0) 01/04/18 03:54 Chloride 90.4 mmol/L (98-107) L 01/04/18 03:54 Carbon Dioxide 23 mmol/L (22-30) 01/04/18 03:54 Anion Gap 21 mmol/L 01/04/18 03:54 BUN 10 mg/dL (7-17) 01/04/18 03:54 Creatinine 2.9 mg/dL (0.7-1.2) H 01/04/18 03:54 Estimated GFR 20 ml/min 01/04/18 03:54 BUN/Creatinine Ratio 3 % 01/04/18 03:54 Glucose 206 mg/dL (65-100) H 01/04/18 03:54 POC Glucose 235 (70-105) H 01/04/18 11:21 Hemoglobin A1c 7.1 % (4-6) H 01/02/18 15:30 Calcium 8.2 mg/dL (8.4-10.2) L 01/04/18 03:54 Total Bilirubin 0.20 mg/dL (0.1-1.2) 01/03/18 04:47 AST 14 units/L (5-40) 01/03/18 04:47 ALT 11 units/L (7-56) 01/03/18 04:47 Alkaline Phosphatase 74 units/L (35-129) 01/03/18 04:47 Troponin T 0.201 ng/mL (0.00-0.029) H* 01/04/18 12:11 NT-Pro-B Natriuret Pep 22423 pg/mL (0-900) H 01/02/18 15:30 Total Protein 7.1 g/dL (6.3-8.2) 01/03/18 04:47 Albumin 3.9 g/dL (3.9-5) 01/03/18 04:47 Albumin/Globulin Ratio 1.2 % 01/03/18 04:47 Triglycerides 207 mg/dL (2-149) H 01/02/18 15:30 Cholesterol 216 mg/dL (50-199) H 01/02/18 15:30 LDL Cholesterol Direct 129 mg/dL (50-130) 01/02/18 15:30 HDL Cholesterol 61 mg/dL (40-59) H 01/02/18 15:30 Cholesterol/HDL Ratio 3.54 % 01/02/18 15:30 Hep Bs Antigen Non-reactive (Negative) 01/02/18 20:15 Hep B Core IgM Ab Non-reactive (NonReactive) 01/02/18 20:15 Hepatitis C Antibody Non-reactive (NonReactive) 01/02/18 20:15
[2018-01-04] MEDS ORDERED: NACL 0.9 (PRIMING MACHINE ONLY DIALYSIS) MC ONE (20:27)
[2018-01-04] MEDS: HumaLOG SUB-Q SCH (21:37)
[2018-01-04] MEDS ORDERED: LANTUS SUB-Q SCH (22:00)
[2018-01-04] MEDS: DULCOLAX PO PRN (22:49)
[2018-01-05 05:49] LABS: Calcium 8.8 mg/dL (8.4-10.2)
[2018-01-05] MEDS: HumaLOG SUB-Q SCH ×2 (08:48→11:30)
[2018-01-05] MEDS: CATAPRES PO SCH ×2 (08:49→14:21)
[2018-01-05] MEDS: APRESOLINE PO SCH ×2 (08:49→14:20)
[2018-01-05] MEDS: PROCARDIA XL PO SCH (09:26)
[2018-01-05] MEDS: COZAAR PO SCH (09:26)
[2018-01-05] MEDS: COREG PO SCH (09:26)
[2018-01-05] MEDS: DULCOLAX PO PRN (09:27)
[2018-01-05] MEDS: HEPARIN SUB-Q SCH (09:27)
--- NOTE | 2018-01-05 09:30 | Progress Note ---
Assessment and Plan Volume overload s/t missed dialysis Abnormal ECG: tall peaked [place] s/t hyperkalemia of 8.9 on presentation no significant CAD on LHC at [place] 3wks ago echocardiogram at [place], she was found with left ventricular systolic function within normal limits, a calcified bicuspid aortic valve but no significant aortic stenosis or regurgitation. ESRD on dialysis Hypertension Diabetes Plan: Conservative cardiac management. Cardiac status is stable. Subjective Date of service: 01/05/18 Principal diagnosis: esrd, hyperkalemia Interval history: Patient denies chest pain and shortness of breath. No events on telemetry overnight. Objective Vital Signs Temp Pulse Resp Resp BP BP Pulse Ox 01/05/18 08:49 81 162/69 01/05/18 07:34 98.2 F 81 18 162/69 98 01/05/18 04:46 98.0 F 82 17 130/45 97 01/05/18 00:18 98.0 F 94 H 17 147/55 99 01/05/18 00:16 98.0 F 61 18 110/43 98 01/04/18 22:00 86 01/04/18 21:33 87 163/71 01/04/18 21:32 87 163/71 01/04/18 21:00 20 20 97 01/04/18 20:17 98.0 F 87 18 163/71 98 01/04/18 19:15 97.2 F L 83 18 132/62 01/04/18 19:00 86 124/68 01/04/18 18:45 72 137/82 01/04/18 18:30 83 125/71 01/04/18 18:15 87 142/80 01/04/18 18:00 81 146/72 01/04/18 17:45 82 142/71 01/04/18 17:30 94 H 133/68 01/04/18 17:15 81 128/64 01/04/18 17:00 78 156/78 01/04/18 16:45 76 154/75 01/04/18 16:30 76 157/78 01/04/18 16:15 75 165/55 01/04/18 16:00 75 144/77 01/04/18 15:45 71 153/75 01/04/18 15:30 73 159/71 01/04/18 15:15 73 150/74 01/04/18 15:05 74 162/73 01/04/18 15:00 97.2 F L 73 18 162/72 01/04/18 11:39 98.6 F 87 16 178/82 96 01/04/18 10:00 84 01/04/18 09:42 88 153/61 98 - Physical Examination General: No Apparent Distress HEENT: Positive: PERRL Cardiac: Positive: Reg Rate and Rhythm Lungs: Positive: Decreased Breath Sounds Neuro: Positive: Grossly Intact - Labs and Meds Comprehensive Metabolic Panel 01/05/18 Range/Units 04:33 Sodium 138 D (137-145) mmol/L Potassium 3.7 (3.6-5.0) mmol/L Chloride 95.2 L (98-107) mmol/L Carbon Dioxide 28 (22-30) mmol/L BUN 12 (7-17) mg/dL Creatinine 2.9 H (0.7-1.2) mg/dL Glucose 277 H (65-100) mg/dL Calcium 8.8 (8.4-10.2) mg/dL
[2018-01-05 09:45] LABS: Hepatitis A Antibody IgM NonReactive (NonReactive)
[2018-01-05] MEDS: SODIUM CHLORIDE FLUSH SYRINGE 10 ML IV SCH (10:00)
--- NOTE | 2018-01-05 10:21 | Progress Note ---
Assessment and Plan Assesment: * End stage renal disease * Severe hyperkalemia * Uremia * Hypertension * Medical noncompliance Plan: * HD q tthsat * uf as tolerated with hd * stress compliance * Renal diet * Dose medications for renal function * ok to dc from renal standpoint Subjective Date of service: 01/05/18 Principal diagnosis: esrd, hyperkalemia Interval history: resting well in bed today Objective - Exam Narrative Exam: - General Appearance General appearance: well-developed, well-nourished, other (uremic fetor) EENT: ATNC Respiratory: Clear to Ascultation Heart: regular, S1S2 Gastrointestinal: Present: normal. Absent: tenderness, distended Integumentary: no rash, warm and dry Musculoskeletal: Present: other (+trace edema) Psychiatric: cooperative - Vital Signs Vital signs: Vital Signs - 12hr 01/05/18 01/05/18 01/05/18 00:16 00:18 04:46 Temperature 98.0 F 98.0 F 98.0 F Pulse Rate 61 94 H 82 Respiratory 18 17 17 Rate Blood Pressure Blood Pressure 110/43 147/55 130/45 [223/100] O2 Sat by Pulse 98 99 97 Oximetry 01/05/18 01/05/18 01/05/18 07:34 08:49 09:26 Temperature 98.2 F Pulse Rate 81 81 81 Respiratory 18 Rate Blood Pressure 162/69 162/69 162/69 Blood Pressure [223/100] O2 Sat by Pulse 98 Oximetry - Lab 01/03/18 04:47 01/05/18 04:33 Most recent lab results Calcium 8.8 mg/dL (8.4-10.2) 01/05/18 04:33
--- NOTE | 2018-01-05 11:36 | Discharge Summary ---
Providers - Providers Date of Admission: 01/02/18 17:35 Date of discharge: 01/05/18 Attending physician: VALENTIN HUBER 01/02/18 Consult to Case Management [CONS] Routine Services Needed at Discharge: Home Health Services Notified:: cm notified 01/02/18 16:59 Consult to Physician [CONS] Stat Comment: DR ORR NOTIFIED 1720 Consulting Provider: ABRAHAN LEWIS Physician Instructions: Reason For Exam: Abnormal EKG 01/02/18 17:00 Consult to Physician [CONS] Stat Comment: DR CARNEY NOTIFIED 1705 Consulting Provider: AGNIESZKA CARNEY Physician Instructions: Reason For Exam: Hyperkalemia 01/02/18 17:26 Consult to Physician [CONS] Stat Comment: NOTIFIED Consulting Provider: FREEMAN ORR Physician Instructions: Reason For Exam: Abnormal EKG 01/04/18 07:35 Physical Therapy Evaluation and Treat [CONS] Routine Comment: Reason For Exam: s/p fall Primary care physician: MECHANICAL APPRENTICE Hospitalization Reason for admission: Hyperkalemia, ESRD, s/p fall Condition: Fair Pertinent studies: CT head CT facial structures Chest XR Hospital course: ER Course: Mrs. Lyons is a 62yo with ESRD on HD TTS who presented to the ED with shortness of breath Her last dialysis treatment was on . She reports fall at home w/ facial injury that evening. She did not go to dialysis on Wednesday as she was instructed by her outpatient dialysis clinic that she would need to go to the ED for evaluation/clearance prior to receiving dialysis. Of note, Mrs. Lyons only dialyzes appx 1.5 hours instead of prescribed treatment time due to headaches during dialysis. Labs in the ED notable for K 8.9. Hospital course: Pt was admitted to the hospital medicine service, underwent HD. Seen by the renal specialist, he was dialyzed 3 days in a role. Pt was also managed for chronic migraine headache. BP is better. Patient has tolerated her diet well, she is doing much better. Patient is being discharged home today to [facility] with her primary renal specialist for her HD tomorrow 01/06/2018. Fall precautions advised. Disposition: - TO HOME OR SELFCARE Time spent for discharge: More than 35 mins spent. - Discharge Diagnoses (1) Acute hyperkalemia Status: Acute Comment: Resolved, counseled compliance with HD, low K diets. (2) Migraine headache Status: Acute Comment: discharged on Floricet. Monitor BP closely,. F./U with PCP (3) ESRD (end stage renal disease) on dialysis Status: Acute Comment: HD TTS, follow up with HD Clinic tomorrow (4) Facial contusion Status: Resolved Qualifiers: Encounter type: initial encounter Qualified Code(s): S00.83XA - Contusion of other part of head, initial encounter Comment: Resolved, fall precautions at all times (5) Fall Status: Acute Qualifiers: Encounter type: initial encounter Qualified Code(s): W19.XXXA - Unspecified fall, initial encounter Comment: fall precautions at all times (6) Metabolic acidosis Status: Acute Comment: Resolved, follow up with HD clinic tomorrow Core Measure Documentation - Palliative Care Palliative Care/ Comfort Measures: Not Applicable - Core Measures Any of the following diagnoses?: none - VTE Discharge Requirements Deep Vein Thrombosis/Pulmonary Embolism Present on Admission: No Has pt received <5 days of overlap therapy or INR<2.0: No Anticoagulant overlap therapy prescribed at discharge: No Contraindication No Overlap Therapy order at DC: Not Indicated - Acute SD Discharge Requirements Aspirin at discharge: No Reason for no aspirin on DC: Medical contraindication IVÁN/ARB for LVSD if EF <40%: Not Applicable Beta hardy at discharge: No Reason for no beta hardy on DC: Medical contraindication Statin for LDL = or >100 mg/dl on DC: Not Applicable Reason for no statin on DC: Medical contraindication - Heart Failure Discharge Requirements IVÁN/ARB for LVSD if EF <40%: Not Applicable Beta hardy at discharge: No Reason for no beta hardy on DC: Medical contraindication - Stroke Discharge Requirements Statin for LDL = or >70 mg/dl on DC: Not Applicable Reason for no statin on DC: Medical Contraindication Anticoag for atrial fib/atrial flutter: Not Applicable Reason for no anticoag for AF/F on DC: Medical Contraindication Antithrombotic for ischemic stroke: No Reason for no antithrombotic on DC: Medical Contraindication Exam - Constitutional Vitals: Temp Pulse Resp BP Pulse Ox 98.2 F 81 18 162/69 98 01/05/18 07:34 01/05/18 09:26 01/05/18 07:34 01/05/18 09:26 01/05/18 07:34 General appearance: Present: no acute distress, well-nourished, obese - EENT Eyes: Present: PERRL ENT: hearing intact, clear oral mucosa - Neck Neck: Present: supple, normal ROM - Respiratory Respiratory: bilateral: CTA, negative: rales, rhonchi, wheezing - Cardiovascular Rhythm: regular Heart Sounds: Present: S1 & S2 - Extremities Extremities: pulses symmetrical, normal temperature, normal color, Full ROM - Abdominal General gastrointestinal: Present: soft, non-tender, non-distended, normal bowel sounds Female genitourinary: Present: deferred - Rectal Rectal Exam: deferred - Integumentary Integumentary: Present: clear, warm, dry - Musculoskeletal Musculoskeletal: strength equal bilaterally - Psychiatric Psychiatric: appropriate mood/affect, intact judgment & insight, cooperative - Neurologic Neurologic: CNII-XII intact, moves all extremities - Allied Health Allied health notes reviewed: nursing, social work, case management Plan Weight Bearing Status: Full Weight Bearing Diet: renal Special Instructions: record daily weights, record daily BP diary Follow up with: PRIMARY CARE, [Primary Care Provider] - 3-5 Days Prescriptions: Insulin Glargine [Lantus VIAL] 25 units SUB-Q QHS #1 units Butalb/Acetamin/Caff 50-325-40 [Fioricet] 1 tab PO Q6HR PRN 15 Days #30 tablet PRN Reason: Headache Carvedilol [Coreg] 12.5 mg PO BID 30 Days #60 tablet cloNIDine [Catapres] 0.2 mg PO TID 30 Days #90 tablet hydrALAZINE [Apresoline TAB] 100 mg PO TID 30 Days #90 tab Losartan [Cozaar] 50 mg PO QDAY 30 Days #30 tablet NIFEdipine XL [Procardia Xl] 60 mg PO BID 30 Days #60 tablet
[2018-01-05 12:49] VITALS: BP 135/64
== END 2018-01-05 18:17 | disposition home or self-care (01) | DRG 640 ==
LOC: ED 13:19 → CC1 17:35 → 4A 01-03 00:31
PROVIDERS: ADMIT Internal Medicine; ATTEND Family Medicine
PROC: 5A1D70Z Performance of Urinary Filtration, Intermittent, Less than 6 Hours Per Day (ICD-10-PCS; principal; 2018-01-02)
PROC: 5A1D70Z Performance of Urinary Filtration, Intermittent, Less than 6 Hours Per Day (ICD-10-PCS; 2018-01-03)
PROC: 5A1D70Z Performance of Urinary Filtration, Intermittent, Less than 6 Hours Per Day (ICD-10-PCS; 2018-01-04)
DX: E87.5 Hyperkalemia (principal); N18.6 End stage renal disease; I12.0 Hypertensive chronic kidney disease with stage 5 chronic kidney disease or end stage renal disease; R74.8 Abnormal levels of other serum enzymes; E87.8 Other disorders of electrolyte and fluid balance, not elsewhere classified; E87.2 Acidosis; W18.39XA Other fall on same level, initial encounter; Y93.89 Activity, other specified; Y92.89 Other specified places as the place of occurrence of the external cause; Y99.8 Other external cause status; E11.22 Type 2 diabetes mellitus with diabetic chronic kidney disease; Z99.2 Dependence on renal dialysis; S00.83XA Contusion of other part of head, initial encounter; Z91.19 Patient's noncompliance with other medical treatment and regimen; E87.70 Fluid overload, unspecified; E11.65 Type 2 diabetes mellitus with hyperglycemia; G43.909 Migraine, unspecified, not intractable, without status migrainosus
CPT/HCPCS: 36415; 70450; 70486; 71045; 72125; 80048; 80053; 80061; 80074; 82962; 83036; 83880; 84484; 85025; 85610; 85730; 87116; 93005; 93010; 94640; 96374; 96375; 99291; A9270-GY; G8978-GP; G8979-GP; J0360; J0610; J1170; J1644; J1815; J2405; J7030

== ENCOUNTER 2019-06-03 12:36 | Inpatient (IN) | payer MEDICARE ==
[2019-06-03] MEDS ORDERED: ALBUTEROL 2.5 MG/3 ML NEBU IH ONE ×2 (13:07→13:09)
[2019-06-03] MEDS ORDERED: SODIUM BICARB 8.4% 50 MEQ/50 ML SYRINGE IV ONE (13:07)
[2019-06-03] MEDS ORDERED: DEXTROSE 50% IN WATER (25GM) 50 ML SYRINGE IV ONE (13:07)
[2019-06-03] MEDS ORDERED: INSULIN REGULAR, HUMAN 100 UNITS/1 ML IV ONE (13:08)
--- NOTE | 2019-06-03 13:44 | Emergency Department Report ---
ED General Adult HPI - General Chief complaint: Weakness Stated complaint: NEED DIALYSIS Time Seen by Provider: 06/03/19 13:02 Source: patient, EMS Mode of arrival: Stretcher Limitations: Physical Limitation - History of Present Illness Initial comments: This is a 64-year-old female who is due for dialysis today. She missed her run. She states that she attempted dialysis last Wednesday. She presents with shortness of breath. She is really quite lethargic maintaining her airway. She cannot communicate in full sentences. She does not complain of pain. I did not get a rationale regarding her noncompliance. She utilizes a want ad clerk not on staff here. She usually does not come to this hospital. The patient was found by nursing staff to be bradycardic. Immediate EKG was obtained. This was really quite consistent with hyperkalemia. Thus the patient was empirically treated with a hyperkalemia cocktail to include D50, insulin, b icarb, albuterol neb. I discussed this with the want ad clerk on-call Dr. Mello who agreed with the empiric management. He has ordered emergency dialysis. -: unknown Associated Symptoms: denies other symptoms - Related Data Home Medications Medication Instructions Recorded Confirmed Last Taken Atorvastatin [Lipitor] 40 mg PO QHS 01/03/18 06/03/19 Unknown Torsemide [Demadex] 100 mg PO DAILY 06/03/19 06/03/19 Unknown cloNIDine [Catapres] 0.3 mg PO TID 06/03/19 06/03/19 Unknown traMADoL [Ultram 50 MG tab] 50 mg PO Q6H PRN 06/03/19 06/03/19 Unknown Previous Rx's Medication Instructions Recorded Last Taken Type Insulin Glargine [Lantus VIAL] 25 units SUB-Q QHS #1 units 01/05/18 Unknown Rx Losartan [Cozaar] 50 mg PO QDAY 30 Days #30 tablet 01/05/18 Unknown Rx NIFEdipine XL [Procardia Xl] 60 mg PO BID 30 Days #60 tablet 01/05/18 Unknown Rx carvediloL [Coreg] 12.5 mg PO BID 30 Days #60 tablet 01/05/18 Unknown Rx hydrALAZINE [Apresoline TAB] 100 mg PO TID 30 Days #90 tab 01/05/18 Unknown Rx Allergies Allergy/AdvReac Type Severity Reaction Status Date / Time No Known Allergies Allergy Unverified 01/02/18 13:47 ED Review of Systems ROS: Stated complaint: NEED DIALYSIS Other details as noted in HPI Comment: Unobtainable due to pts medical conditions ED Past Medical Hx - Past Medical History Previous Medical History?: Yes Hx Hypertension: Yes Hx Heart Attack/AMI: No Hx Congestive Heart Failure: No Hx Diabetes: Yes Hx Deep Vein Thrombosis: No Hx Renal Disease: Yes (ESRD on HD) Hx Kidney Stones: No Hx Asthma: No Hx COPD: No - Surgical History Past Surgical History?: Yes Hx Coronary Stent: No Hx Pacemaker: No Hx Internal Defibrillator: No Additional Surgical History: permacath - Social History Smoking Status: Former Smoker - Medications Home Medications: Home Medications Medication Instructions Recorded Confirmed Last Taken Type Atorvastatin [Lipitor] 40 mg PO QHS 01/03/18 06/03/19 Unknown History Insulin Glargine [Lantus VIAL] 25 units SUB-Q QHS #1 units 01/05/18 06/03/19 Unknown Rx Losartan [Cozaar] 50 mg PO QDAY 30 Days #30 tablet 01/05/18 06/03/19 Unknown Rx NIFEdipine XL [Procardia Xl] 60 mg PO BID 30 Days #60 tablet 01/05/18 06/03/19 Unknown Rx carvediloL [Coreg] 12.5 mg PO BID 30 Days #60 tablet 01/05/18 06/03/19 Unknown Rx hydrALAZINE [Apresoline TAB] 100 mg PO TID 30 Days #90 tab 01/05/18 06/03/19 Unknown Rx Torsemide [Demadex] 100 mg PO DAILY 06/03/19 06/03/19 Unknown History cloNIDine [Catapres] 0.3 mg PO TID 06/03/19 06/03/19 Unknown History traMADoL [Ultram 50 MG tab] 50 mg PO Q6H PRN 06/03/19 06/03/19 Unknown History ED Physical Exam - General Limitations: Physical Limitation General appearance: lethargic - Head Head exam: Present: atraumatic, normocephalic - Eye Eye exam: Present: normal appearance. Absent: scleral icterus - ENT ENT exam: Present: mucous membranes moist - Neck Neck exam: Present: normal inspection. Absent: tenderness, meningismus - Respiratory Respiratory exam: Present: decreased breath sounds (Somewhat distant). Absent: respiratory distress - Cardiovascular Cardiovascular Exam: Present: normal rhythm, bradycardia. Absent: systolic murmur, diastolic murmur, rubs, gallop - GI/Abdominal GI/Abdominal exam: Present: soft, normal bowel sounds. Absent: distended, tenderness, guarding, rebound - Extremities Exam Extremities exam: Present: other (No acute deformity, some pretibial edema. Neurovascular intact) - Back Exam Back exam: Present: normal inspection - Neurological Exam Neurological exam: Present: altered, other (No gross focal deficit) - Psychiatric Psychiatric exam: Present: flat affect - Skin Skin exam: Present: warm, dry, intact, normal color. Absent: rash ED Course Vital Signs 06/03/19 06/03/19 06/03/19 12:44 12:52 13:00 Temperature Pulse Rate 44 L 47 L 42 L Pulse Rate [ Anterior Bilateral Throughout] Respiratory 14 12 11 L Rate Respiratory Rate [Anterior Bilateral Throughout] Blood Pressure 157/61 157/61 O2 Sat by Pulse 95 90 99 Oximetry 06/03/19 06/03/19 06/03/19 13:13 13:16 13:44 Temperature Pulse Rate 42 L 49 L Pulse Rate [ 50 L Anterior Bilateral Throughout] Respiratory 9 L Rate Respiratory 16 Rate [Anterior Bilateral Throughout] Blood Pressure 164/64 O2 Sat by Pulse 99 100 Oximetry 06/03/19 06/03/19 06/03/19 13:45 13:57 14:00 Temperature 97.7 F Pulse Rate 49 L 44 L Pulse Rate [ Anterior Bilateral Throughout] Respiratory 7 L Rate Respiratory Rate [Anterior Bilateral Throughout] Blood Pressure 151/59 137/58 O2 Sat by Pulse 100 100 Oximetry - Reevaluation(s) Reevaluation #1: Still awaiting chemistries. Nonetheless, the patient is going to the ICU for emergency dialysis. 06/03/19 14:06 06/03/19 14:06 Reevaluation #2: The blood was drawn in the emergency department. It was appropriately labeled. However the lab states that the specimen was never received. The patient is in the ICU receiving dialysis at this point. Hospitalist will be informed. 06/03/19 14:45 ED Medical Decision Making - Lab Data Laboratory Results - last 24 hr 06/03/19 13:15 POC Glucose 192 H Laboratory Results - last 24 hr 06/03/19 13:15 POC Glucose 192 H - EKG Data -: EKG Interpreted by Me EKG shows normal: sinus rhythm Rate: bradycardia - EKG Data Interpretation: other (Very depressed P wave. Intraventricular conduction delay. Peak T waves. All consistent with hyperkalemia) - Radiology Data Radiology results: image reviewed (Pulmonary edema Vas-Cath in place) Critical Care Time: Yes Critical care time in (mins) excluding proc time.: 40 Critical care attestation.: If time is entered above; I have spent that time in minutes in the direct care of this critically ill patient, excluding procedure time. ED Disposition Clinical Impression: Acute hyperkalemia, End-stage renal disease needing dialysis Pulmonary edema Qualifiers: Chronicity: acute Qualified Code(s): J81.0 - Acute pulmonary edema Disposition: DC-09 OP ADMIT IP TO THIS HOSP Is pt being admited?: Yes Does the pt Need Aspirin: Yes Condition: Stable Time of Disposition: 14:07
--- NOTE | 2019-06-03 13:51 | XRay Report ---
CHEST 1 VIEW INDICATION: hypertension. COMPARISON: January 02, 2018 FINDINGS: SUPPORT DEVICES: Hemodialysis catheters tip in superior vena cava. HEART / MEDIASTINUM: No significant abnormality. LUNGS / PLEURA: Diffuse interstitial and patchy airspace pulmonary edema is noted with bilateral pleu ral effusions No pneumothorax. ADDITIONAL FINDINGS: IMPRESSION: 1. Diffuse pulmonary edema as noted Signer Name: Trace Castillo MD Signed: 06/03/2019 1:47 PM Workstation Name: [id number]
[2019-06-03] MEDS ORDERED: ATROPINE 0.4 MG/1 ML INJ IV ONE ×3 (14:56→19:00)
--- NOTE | 2019-06-03 15:28 | History and Physical Report ---
History of Present Illness Date of admission: 06/03/19 13:37 Chief complaint: I feel weak and I just do not feel good History of present illness: 64 YO Female with HTN, DM, ESRD on HD(T,R,Sa), Obesity Hypoventilation Syndrome presents to ED for evaluation. Patient is lethargic at time of my exam and is unable to provide detailed history. Patient does however provide minimal history. Additional history taken from ED staff as well as EMS staff. Patient reports feeling progressively weak over the past 4 days with worsening symptoms over the same timeframe. Patient acknowledges noncompliance with dialysis. EMS was notified and upon arrival the patient was found to be in distress. The patient was transported to [facility] for further care and evaluation. Patient seen and evaluated in the emergency department. Lab and imaging studies reviewed. Patient was found to have acute hypoxemic respiratory failure with a pulse oximetry of 86% on room air as well as metabolic encephalopathy, end-stage renal disease, fluid overload secondary to missed hemodialysis. Patient admitted to [facility] for medical stabilization and treatment due to high risk of cardiopulmonary decompensation. EKG showed sinus bradycardia. Cardiology consulted in ED. EKG findings reviewed with charging plug placer on-call and suspected due to hyperkalemia. Nephrology team consulted in ED for urgent dialysis. Patient was found to be bradycardic with a heart rate ranging from 35-45 at the time of my evaluation. No further history obtainable. No prior admission for review. No medication listed at time of admission for reconciliation. Past History Past Medical History: diabetes, ESRD, hypertension Past Surgical History: Other (Dialysis access) Social history: single. denies: smoking, alcohol abuse, prescription drug abuse Family history: diabetes, hypertension Medications and Allergies Allergies Allergy/AdvReac Type Severity Reaction Status Date / Time No Known Allergies Allergy Unverified 01/02/18 13:47 Home Medications Medication Instructions Recorded Confirmed Last Taken Type Atorvastatin [Lipitor] 40 mg PO QHS 01/03/18 06/03/19 Unknown History Insulin Glargine [Lantus VIAL] 25 units SUB-Q QHS #1 units 01/05/18 06/03/19 Unknown Rx Losartan [Cozaar] 50 mg PO QDAY 30 Days #30 tablet 01/05/18 06/03/19 Unknown Rx NIFEdipine XL [Procardia Xl] 60 mg PO BID 30 Days #60 tablet 01/05/18 06/03/19 Unknown Rx carvediloL [Coreg] 12.5 mg PO BID 30 Days #60 tablet 01/05/18 06/03/19 Unknown Rx hydrALAZINE [Apresoline TAB] 100 mg PO TID 30 Days #90 tab 01/05/18 06/03/19 Unknown Rx Torsemide [Demadex] 100 mg PO DAILY 06/03/19 06/03/19 Unknown History cloNIDine [Catapres] 0.3 mg PO TID 06/03/19 06/03/19 Unknown History traMADoL [Ultram 50 MG tab] 50 mg PO Q6H PRN 06/03/19 06/03/19 Unknown History Active Meds: Active Medications Aspirin (Baby Aspirin) 81 mg PO ONCE ONE Stop: 06/04/19 14:09 Atropine Sulfate (Atropine 0.1% (Cardiac)) 0.4 mg IV ONCE ONE Stop: 06/03/19 16:01 Last Admin: 06/03/19 15:08 Dose: 0.4 mg Documented by: Atropine Sulfate (Atropine) 0.4 mg IV ONCE ONE Stop: 06/03/19 19:01 Atropine Sulfate (Atropine 0.1% (Cardiac)) 0.6 mg IV ONCE ONE Stop: 06/03/19 16:01 Last Admin: 06/03/19 15:25 Dose: 0.6 mg Documented by: Atropine Sulfate (Atropine 0.1% (Cardiac)) 1 mg IV ONCE ONE Stop: 06/03/19 19:01 Review of Systems ROS unobtainable: due to mental status Exam - Constitutional Vitals: Temp Pulse Resp BP Pulse Ox 97.7 F 44 L 7 L 137/58 95 06/03/19 13:57 06/03/19 14:00 06/03/19 14:00 06/03/19 14:00 06/03/19 14:37 General appearance: Present: mild distress, obese - EENT Eyes: Present: PERRL ENT: hearing intact, clear oral mucosa - Neck Neck: Present: supple, normal ROM - Respiratory Respiratory effort: normal Respiratory: bilateral: diminished, rhonchi - Cardiovascular Heart Sounds: Present: S1 & S2. Absent: rub, click - Extremities Extremities: pulses symmetrical, No edema Peripheral Pulses: within normal limits - Abdominal General gastrointestinal: Present: soft, non-tender, non-distended, normal bowel sounds Female genitourinary: Present: normal - Integumentary Integumentary: Present: clear, warm, dry - Musculoskeletal Musculoskeletal: generalized weakness - Psychiatric Psychiatric: no appropriate mood/affect, no intact judgment & insight, no memory intact - Neurologic Neurologic: CNII-XII intact, moves all extremities Results - Labs CBC & Chem 7: 06/03/19 15:07 06/03/19 15:07 Labs: Abnormal lab results 06/03/19 Range/Units 13:15 POC Glucose 192 H (70-105) Assessment and Plan - Patient Problems (1) Acute hypoxemic respiratory failure Current Visit: Yes Status: Acute Plan to address problem: Chest x-ray, pulse oximetry, nebulizer therapy, pulmonary team consulted in ED, noninvasive positive pressure ventilation, arterial blood blood gas. (2) End stage renal disease Current Visit: Yes Status: Acute Plan to address problem: Nephrology consulted in ED, urgent dialysis, BMP, repeat BMP in a.m., monitor urine output every shift, avoid nephrotoxic agents. (3) Metabolic encephalopathy Current Visit: Yes Status: Acute Plan to address problem: Urgent dialysis, neuro check, aspiration precaution, seizure precaution, supportive care. (4) Metabolic acidosis Current Visit: Yes Status: Acute Plan to address problem: Urgent dialysis, BMP, repeat BMP in a.m., IV bicarbonate therapy. (5) Hypertension Current Visit: Yes Status: Acute Qualifiers: Hypertension type: essential hypertension Qualified Code(s): I10 - Essential (primary) hypertension Plan to address problem: Monitor blood pressure every shift, continue medical management. (6) Diabetes Current Visit: Yes Status: Acute Plan to address problem: Sliding scale insulin, consistent carbohydrate diet when awake and alert only, Accu-Chek, hypoglycemia protocol. (7) DVT prophylaxis Current Visit: Yes Status: Acute Plan to address problem: SCD to bilateral lower extremities while in bed, prophylactic heparin. (8) Advance care planning Current Visit: Yes Status: Acute Plan to address problem: Patient is full code, disease education conducted, +30 minutes.
[2019-06-03 15:42] LABS: Alanine Aminotransferase 14 units/L (7-56); Albumin 4.1 g/dL (3.9-5); BUN/Creatinine Ratio 9; Blood Urea Nitrogen 100 mg/dL (7-17); Calcium 9.1 mg/dL (8.4-10.2); Hemolysis Index 10
[2019-06-03 15:49] LABS: Hepatitis B Surface Antigen Non-Reactive (Negative); Hepatitis C Virus Antibody Non-Reactive (NonReactive)
[2019-06-03 15:55] LABS: Bilirubin,Direct < 0.2 mg/dL (0-0.2)
[2019-06-03 15:56] LABS: Basophils % (Auto) 0.5 % (0.0-1.8); Eosinophils % (Auto) 0.4 % (0.0-4.3); Hematocrit 32.3 % (30.3-42.9); Hemoglobin 10.1 gm/dl (10.1-14.3); Lymphocytes # (Auto) 0.6 K/mm3 (1.2-5.4); Lymphocytes % (Auto) 7.5 % (13.4-35.0); Mean Corpuscular HGB Conc 31 % (30-34); Mean Corpuscular Volume 91 fl (79-97); Monocytes # (Auto) 0.5 K/mm3 (0.0-0.8); Monocytes % (Auto) 5.6 % (0.0-7.3); Platelet Count 233 K/mm3 (140-440); Red Blood Count 3.57 M/mm3 (3.65-5.03); Red Cell Distribution Width 18.1 % (13.2-15.2)
[2019-06-03] MEDS ORDERED: SODIUM BICARB 8.4% 50 MEQ/50 ML SYRINGE IV STA (15:56)
[2019-06-03] MEDS ORDERED: DEXTROSE 50% IN WATER (25GM) 50 ML SYRINGE IV STA (15:56)
[2019-06-03] MEDS ORDERED: CALCIUM GLUCONATE 1,000 MG in SODIUM CHLORIDE 0.9% 100 ML IV STA (15:56)
[2019-06-03] MEDS ORDERED: ATROPINE 0.1% (1 MG/10 ML) CARDIAC SYRINGE IV ONE ×4 (16:00→19:00)
[2019-06-03] MEDS ORDERED: INSULIN REGULAR, HUMAN 100 UNITS/1 ML SUB-Q STA (16:04)
[2019-06-03 16:06] LABS: ABG Base Excess -9.1 mmol/L (-2.0-3.0); ABG HCO3 17.8 mmol/L (20.0-26.0); ABG Oxygen Saturation 90.7 % (95.0-99.0); ABG PCO2 42.5 mm Hg; ABG PH 7.239 pH Units (7.350-7.450); ABG PO2 71.4 mm Hg (80.0-90.0)
[2019-06-03 16:06] LABS: INR 1.19 (0.87-1.13)
[2019-06-03 16:07] LABS: Partial Thromboplastin Time 40.5 Sec. (24.2-36.6)
[2019-06-03 16:18] LABS: ABG Methemoglobin > 99.0 % (0.0-1.5)
--- NOTE | 2019-06-03 16:28 | Event Note ---
Date: 06/03/19 STAT HD ordered on 13:25 PM and there was not K level available yet, received call for ICU team regarding K level of 9.2, I called dialysis nurse Jake, he stated she will be on dialysis [facility].
[2019-06-03] MEDS ORDERED: INSULIN NPH/REGULAR 70/30 INJ SUB-Q SCH (16:30)
--- NOTE | 2019-06-03 16:33 | Consultation ---
History of Present Illness Consult date: 06/03/19 Requesting physician: CATHERINE CASTANEDA Reason for consult: other (Severe Hyperkalemia; Symptomatic Bradycardia; ESRD on Dialysis) History of present illness: PULMONARY/CCM CONSULT NOTE (Full dictation # [id number]) Please see dictated notes for full details Medications and Allergies Allergies Allergy/AdvReac Type Severity Reaction Status Date / Time No Known Allergies Allergy Unverified 01/02/18 13:47 Home Medications Medication Instructions Recorded Confirmed Last Taken Type Atorvastatin [Lipitor] 40 mg PO QHS 01/03/18 06/03/19 Unknown History Insulin Glargine [Lantus VIAL] 25 units SUB-Q QHS #1 units 01/05/18 06/03/19 Unknown Rx Losartan [Cozaar] 50 mg PO QDAY 30 Days #30 tablet 01/05/18 06/03/19 Unknown Rx NIFEdipine XL [Procardia Xl] 60 mg PO BID 30 Days #60 tablet 01/05/18 06/03/19 Unknown Rx carvediloL [Coreg] 12.5 mg PO BID 30 Days #60 tablet 01/05/18 06/03/19 Unknown Rx hydrALAZINE [Apresoline TAB] 100 mg PO TID 30 Days #90 tab 01/05/18 06/03/19 Unknown Rx Torsemide [Demadex] 100 mg PO DAILY 06/03/19 06/03/19 Unknown History cloNIDine [Catapres] 0.3 mg PO TID 06/03/19 06/03/19 Unknown History traMADoL [Ultram 50 MG tab] 50 mg PO Q6H PRN 06/03/19 06/03/19 Unknown History Active Meds: Active Medications Aspirin (Baby Aspirin) 81 mg PO ONCE ONE Stop: 06/04/19 14:09 Atropine Sulfate (Atropine 0.1% (Cardiac)) 1 mg IV ONCE ONE Stop: 06/03/19 19:01 Physical Examination Vital signs: Vital Signs Pulse Resp BP Pulse Ox 44 L 14 157/61 95 06/03/19 12:44 06/03/19 12:44 06/03/19 12:44 06/03/19 12:44 Results - Laboratory Findings CBC and BMP: 06/03/19 15:07 06/03/19 15:07 ABG ABG pH 7.239 pH Units (7.350-7.450) L 06/03/19 16:00 ABG pCO2 42.5 mm Hg 06/03/19 16:00 ABG pO2 71.4 mm Hg (80.0-90.0) L 06/03/19 16:00 ABG O2 Saturation 90.7 % (95.0-99.0) L 06/03/19 16:00 PT/INR, D-dimer PT 15.3 Sec. (12.2-14.9) H 06/03/19 15:08 INR 1.19 (0.87-1.13) H 06/03/19 15:08 Abnormal lab findings: Abnormal Labs 06/03/19 06/03/19 06/03/19 13:15 15:07 15:07 RBC 3.57 L RDW 18.1 H Lymph % (Auto) 7.5 L Lymph # 0.6 L Seg Neutrophils % 86.0 H PT INR APTT ABG pH ABG pO2 ABG HCO3 ABG O2 Saturation ABG Base Excess ABG Hemoglobin ABG Methemoglobin Oxyhemoglobin Sodium 131 L Potassium 9.2 H* Chloride 90.4 L Carbon Dioxide 16 L BUN 100 H Creatinine 11.0 H Glucose 225 H POC Glucose 192 H Phosphorus Alkaline Phosphatase 143 H NT-Pro-B Natriuret Pep 93630 H 06/03/19 06/03/19 06/03/19 15:07 15:08 16:00 RBC RDW Lymph % (Auto) Lymph # Seg Neutrophils % PT 15.3 H INR 1.19 H APTT 40.5 H ABG pH 7.239 L ABG pO2 71.4 L ABG HCO3 17.8 L ABG O2 Saturation 90.7 L ABG Base Excess -9.1 L ABG Hemoglobin 10.2 L ABG Methemoglobin > 99.0 H Oxyhemoglobin 89.5 L Sodium Potassium Chloride Carbon Dioxide BUN Creatinine Glucose POC Glucose Phosphorus 6.80 H Alkaline Phosphatase NT-Pro-B Natriuret Pep
[2019-06-03] MEDS ORDERED: SODIUM CHLORIDE*PRIMING MACHINE ONLY FOR DIALYSIS MC ONE (19:21)
[2019-06-03] MEDS ORDERED: hydrALAZINE 20 MG/1 ML INJ IV ONE ×2 (20:00→23:15)
--- NOTE | 2019-06-03 22:54 | Consultation ---
PULMONARY CRITICAL CARE CONSULT NOTE. CONSULTING PHYSICIAN: Dr. Leland Macias. REASON FOR CONSULTATION: Acute hypoxemic respiratory failure; severe hyperkalemia; symptomatic bradycardia; end-stage renal disease, on dialysis. CHIEF COMPLAINT AND HISTORY OF PRESENT ILLNESS: The patient is a 64-year-old -[place]ian female with past medical history significant for end-stage renal disease, on dialysis. She missed her last session and this session, the other session will have been today, so she has missed about 2 sessions. She thinks she got dialyzed prior to that and she could well have missed 3 sessions. She comes into the Emergency Room complaining of shortness of breath. She is lethargic. She is talking in interrupted sentences. She denies chest pain. She appears to be with decent insight and judgment at that time, she was evaluated in the Emergency Room. Apparently, her investment representative is not on staff on this hospital. In the ER, she was bradycardic. An EKG was obtained. It showed evidence of symptomatic hyperkalemia. She was empirically treated with the hyperkalemia cocktail including sodium bicarbonate, D50, insulin, albuterol nebulizer treatments. Then emergency dialysis was ordered. When I stopped by to see her in the ICU, unfortunately, dialysis had not been started. The lab called a potassium of 9.2. She remained bradycardic. She was arousable. Her breathing was becoming suboptimal. She was obviously hypoventilating. Respiratory rate of about 8-10. Still denied any chest pains. No nausea, no vomiting. With regard to tobacco use/abuse history, she describes herself as a former smoker, but then is not able to give me much more of history as she continues to fall asleep while I talked to her. This really is as much of the history of presentation as I have. PAST MEDICAL HISTORY: According to the records, hypertension; history of diabetes; history of end-stage renal disease, on dialysis. She is morbidly obese. PAST SURGICAL HISTORY: She has had a Perm-A-Cath placed for dialysis access. MEDICATIONS: She was on at the time I stopped by to see her were reviewed. Pertinent medications include the following: She was on aspirin 81 mg, she took a one-time dose in the ER and had received atropine 1 mg IV x 1 and was about to receive another dose of atropine. DIET: Obese lady, morbidly; acute weight loss or gain history is unknown. FAMILY AND SOCIAL HISTORY: She lives in the community. She describes herself as a former smoker. Apart from that, I am unable to obtain any other family or social history. REVIEW OF SYSTEMS: Difficult to obtain secondary to her medical and mental condition. She denies any chest pain for me. She denies any pain any otherwise. Since she has been in the hospital, no gross hematochezia or melena. No gross hematuria. She denies hematemesis. No witnessed seizures. She denies hemoptysis. Complete 13-system review of systems obtained as best as I could. This was limited by the patient's mental status, otherwise is as in the body of history above. PHYSICAL EXAMINATION: VITAL SIGNS: On examination at presentation, she was afebrile. Initial temperature 97.7 degrees Fahrenheit, pulse was 44, respiratory rate at the time I saw her was 9, blood pressure was 157/61. O2 sats were 95% on 40% Ventimask. GENERAL: Elderly looking obese -[place]ian female, normocephalic, atraumatic, talking to me with interrupted sentences and hypoventilating at rest. HEAD, EYES, EARS, NOSE AND THROAT: She is anicteric. No conjunctival erythema. Oropharynx is moist. Mallampati #4 oropharynx. No gross jugular venous distention. She has a large neck circumference. No thyromegaly. NECK: Grossly, there were no palpable lymph nodes in the supraclavicular or submandibular lymph node chains. LUNGS: Auscultation of both lung riley significant mostly for diminished bilateral breath sounds, slightly diminished bibasilar air entry, basilar inspiratory crackles. No active wheezing. HEART: Heart sounds 1 and 2 are heard at the time of my evaluation, regular. Bradycardia. No rubs or murmurs were heard. ABDOMEN: Soft. It is full, protuberant really. Bowel sounds are positive, nontender, no palpable hepatosplenomegaly. EXTREMITIES: Without overt digital clubbing or cyanosis. She has trace bipedal pitting edema. Pedal pulses are weak, but palpable bilaterally. NEUROLOGIC: Pupils are equal, round, about 4 mm, reactive to light. Extraocular muscle movements appeared intact. She moves all 4 extremities spontaneously, but is pretty sluggish. No spasticity. No seizures. PSYCHIATRIC: From standpoint, her mood and affect were flat. Insight and judgment were poor. SKIN: Poor turgor with stasis dermatitis type rash to the lower extremities. No overt cellulitis. LABORATORY DATA: Unfortunately, is pending. The blood glucose point of contact was 192. The potassium has just been called as 9.2. A 12-lead EKG was reviewed, which showed sinus bradycardia with a rate of 42 with premature ventricular complex and suggests a prior infarct as well as nonspecific lateral ST and T-wave changes. A chest x-ray shows cardiomegaly, right subclavian Perm-A-Cath. It is rotated to the left. Increased bibasilar predominant infiltrates, likely represent pulmonary edema. She probably has small bilateral pleural effusions, no gross pneumothorax, no gross bony fractures that I can see. ASSESSMENT: 1. Acute hypoxemic respiratory failure. 2. Symptomatic hyperkalemia. 3. Symptomatic bradycardia. 4. Bilateral pleural effusions. 5. End-stage renal disease, on dialysis. 6. Possible acute coronary syndrome. 7. Obesity. 8. Possible obstructive sleep apnea. 9. Likely hypoventilation. PLAN: She is going to receive another round of the cocktail. I am going to order D50, 1 amp push with 10 units of regular insulin IV thereafter. She is also going to receive an amp of bicarbonate and an amp of calcium carbonate. A stat arterial blood gas has been ordered. In the meantime, I will put her empirically on bilevel positive air pressure ventilation therapy with an IPAP of 20, EPAP of 8 and a set rate of 20 to improve ventilation for possible hypercapnia with CO2 narcosis. Stat ABG has been ordered. I will follow that. We await the results from the laboratory. I have called the investment representative and we will get the dialysis team to the bedside as fast as possible. They have actually appeared during my dictation and are about to begin dialysis. Blood pressure is holding. Temporary percutaneous pacemaker is deployed on her. Chronic home meds will be resumed by the attending as necessary. She is going to be placed on GI and DVT prophylaxes. Flu and pneumonia vaccination will be addressed per protocol. I will also begin scheduled albuterol treatments first dose now both for the hyperkalemia and to assist with bronchodilation. I will defer to Nephrology with regard to the azotemia. Thank you very much for the consult Dr. Macias. We will follow along and make further recommendations as picture progresses/becomes clearer. She is critically ill, at very high risk of from cardiopulmonary system decompensation. At this time, I spent about 40 minutes of critical care time without overlap and excluding any procedural time that may be necessary. I will order a procalcitonin level and keep a close eye out for possible occult sepsis and begin broad-spectrum antibiotic therapy if there is any other suggestion of sepsis. JOB# [id number] BERTHA/BRODIE SAMPSON
[2019-06-03] MEDS: cloNIDine 0.2 MG TAB PO SCH (23:30)
[2019-06-03] MEDS: hydrALAZINE 100 MG TAB PO SCH (23:31)
[2019-06-03] MEDS: cloNIDine 0.1 MG TAB PO SCH (23:32)
[2019-06-04] MEDS: hydrALAZINE 100 MG TAB PO SCH ×3 (05:17→22:02)
[2019-06-04] MEDS: hydrALAZINE 20 MG/1 ML INJ IV PRN ×2 (07:17→11:47)
[2019-06-04] MEDS: cloNIDine 0.2 MG TAB PO SCH ×4 (07:23→21:04)
[2019-06-04 08:44] LABS: Basophils % (Auto) 0.6 % (0.0-1.8); Eosinophils # (Auto) 0.1 K/mm3 (0.0-0.4); Eosinophils % (Auto) 0.8 % (0.0-4.3); Hematocrit 33.2 % (30.3-42.9); Hemoglobin 10.7 gm/dl (10.1-14.3); Lymphocytes # (Auto) 0.6 K/mm3 (1.2-5.4); Lymphocytes % (Auto) 8.3 % (13.4-35.0); Mean Corpuscular HGB Conc 32 % (30-34); Mean Corpuscular Volume 89 fl (79-97); Monocytes # (Auto) 0.6 K/mm3 (0.0-0.8); Monocytes % (Auto) 8.1 % (0.0-7.3); Platelet Count 219 K/mm3 (140-440); Red Blood Count 3.74 M/mm3 (3.65-5.03)
[2019-06-04 09:00] LABS: Calcium 8.7 mg/dL (8.4-10.2)
[2019-06-04] MEDS ORDERED: niCARdipine 50 MG in SODIUM CHLORIDE 0.9% 250ML 230 ML IV SCH (09:00)
[2019-06-04] MEDS: carvediloL 12.5 MG TAB PO SCH ×2 (09:05→22:00)
[2019-06-04] MEDS: NIFEdipine XL 60 MG TAB PO SCH ×2 (09:05→22:02)
--- NOTE | 2019-06-04 11:13 | Progress Note ---
Assessment and Plan Assessment and plan: 64 YO Female with HTN, DM, ESRD on HD(T,R,Sa), Obesity Hypoventilation Syndrome presents to ED for evaluation. Patient is lethargic at time of my exam and is unable to provide detailed history. Patient does however provide minimal history. Additional history taken from ED staff as well as EMS staff. Patient reports feeling progressively weak over the past 4 days with worsening symptoms over the same timeframe. Patient acknowledges noncompliance with dialysis. EMS was notified and upon arrival the patient was found to be in distress. The patient was transported to [facility] for further care and evaluation. Patient seen and evaluated in the emergency department. Lab and imaging studies reviewed. Patient was found to have acute hypoxemic respiratory failure with a pulse oximetry of 86% on room air as well as metabolic encephalopathy, end-stage renal disease, fluid overload secondary to missed hemodialysis. * Patient admitted to [facility] for medical stabilization and treatment due to high risk of cardiopulmonary decompensation. EKG showed sinus bradycardia. Cardiology consulted in ED. EKG findings reviewed with telephone maintenance mechanic on-call and suspected due to hyperkalemia. Nephrology team consulted in ED for urgent dialysis. Patient was found to be bradycardic with a heart rate ranging from 35-45 at the time of my evaluation. * Chest x-ray, pulse oximetry, nebulizer therapy, pulmonary team consulted in ED, noninvasive positive pressure ventilation, arterial blood blood gas. * Nephrology consulted in ED, urgent dialysis, BMP, repeat BMP in a.m., monitor urine output every shift, avoid nephrotoxic agents. * Urgent dialysis, neuro check, aspiration precaution, seizure precaution, supp ortive care. * Urgent dialysis, BMP, repeat BMP in a.m., IV bicarbonate therapy. 06/04 * Labs clinically improving. Patients mental status improved this am. Clinically improved following dialysis and resumption of home meds. Cardene drip started discontinued as BP better. Ok to transfer to [facility] with remote tele CXR: IMPRESSION: 1. Diffuse pulmonary edema as noted Acute hypoxemic respiratory failure Acute Pulmonary Edema Hyperkalemia-Severe ESRD Acute Metabolic Encephalopathy now resolved Acute Metabolic Acidosis HTN Diabetes Mellitus None Compliance DVT/GI prophy History Interval history: Patient seen and examined. states she is improved but not quit at baseline. No nausea and vomiting. Hospitalist Physical - Physical exam Narrative exam: General appearance: Present: Resting well, obese - EENT Eyes: Present: PERRL ENT: hearing intact, clear oral mucosa - Neck Neck: Present: supple, normal ROM - Respiratory Respiratory effort: normal Respiratory: bilateral: diminished, rhonchi - Cardiovascular Heart Sounds: Present: S1 & S2. Absent: rub, click - Extremities Extremities: pulses symmetrical, No edema Peripheral Pulses: within normal limits - Abdominal General gastrointestinal: Present: soft, non-tender, non-distended, normal bowel sounds Female genitourinary: Present: normal - Integumentary Integumentary: Present: clear, warm, dry - Musculoskeletal Musculoskeletal: generalized weakness - Psychiatric Psychiatric: no appropriate mood/affect, no intact judgment & insight, no memory intact - Neurologic Neurologic: CNII-XII intact, moves all extremities - Constitutional Vitals: Temp Pulse Resp BP Pulse Ox 98.5 F 69 9 L 122/44 99 06/04/19 08:00 06/04/19 11:00 06/04/19 11:00 06/04/19 11:00 06/04/19 11:00 General appearance: Present: mild distress, obese Results - Labs CBC & Chem 7: 06/04/19 08:17 06/04/19 08:17 Labs: Laboratory Last Values WBC 7.8 K/mm3 (4.5-11.0) 06/04/19 08:17 RBC 3.74 M/mm3 (3.65-5.03) 06/04/19 08:17 Hgb 10.7 gm/dl (10.1-14.3) 06/04/19 08:17 Hct 33.2 % (30.3-42.9) 06/04/19 08:17 MCV 89 fl (79-97) 06/04/19 08:17 MCH 29 pg (28-32) 06/04/19 08:17 MCHC 32 % (30-34) 06/04/19 08:17 RDW 18.0 % (13.2-15.2) H 06/04/19 08:17 Plt Count 219 K/mm3 (140-440) 06/04/19 08:17 Lymph % (Auto) 8.3 % (13.4-35.0) L 06/04/19 08:17 [place] % (Auto) 8.1 % (0.0-7.3) H 06/04/19 08:17 Eos % (Auto) 0.8 % (0.0-4.3) 06/04/19 08:17 Baso % (Auto) 0.6 % (0.0-1.8) 06/04/19 08:17 Lymph # 0.6 K/mm3 (1.2-5.4) L 06/04/19 08:17 [place] # 0.6 K/mm3 (0.0-0.8) 06/04/19 08:17 Eos # 0.1 K/mm3 (0.0-0.4) 06/04/19 08:17 Baso # 0.0 K/mm3 (0.0-0.1) 06/04/19 08:17 Seg Neutrophils % 82.2 % (40.0-70.0) H 06/04/19 08:17 Seg Neutrophils # 6.4 K/mm3 (1.8-7.7) 06/04/19 08:17 PT 15.3 Sec. (12.2-14.9) H 06/03/19 15:08 INR 1.19 (0.87-1.13) H 06/03/19 15:08 APTT 40.5 Sec. (24.2-36.6) H 06/03/19 15:08 ABG pH 7.239 pH Units (7.350-7.450) L 06/03/19 16:00 ABG pCO2 42.5 mm Hg 06/03/19 16:00 ABG pO2 71.4 mm Hg (80.0-90.0) L 06/03/19 16:00 ABG HCO3 17.8 mmol/L (20.0-26.0) L 06/03/19 16:00 ABG O2 Saturation 90.7 % (95.0-99.0) L 06/03/19 16:00 ABG O2 Content 12.9 (0.0-44) 06/03/19 16:00 ABG Base Excess -9.1 mmol/L (-2.0-3.0) L 06/03/19 16:00 ABG Hemoglobin 10.2 gm/dl (12.0-16.0) L 06/03/19 16:00 ABG Carboxyhemoglobin 1.5 % (0.0-5.0) 06/03/19 16:00 ABG Methemoglobin > 99.0 % (0.0-1.5) H 06/03/19 16:00 Oxyhemoglobin 89.5 % (95.0-99.0) L 06/03/19 16:00 FiO2 36 % 06/03/19 16:00 Sodium 142 mmol/L (137-145) D 06/04/19 08:17 Potassium 5.7 mmol/L (3.6-5.0) H D 06/04/19 08:17 Chloride 98.3 mmol/L (98-107) 06/04/19 08:17 Carbon Dioxide 23 mmol/L (22-30) D 06/04/19 08:17 Anion Gap 26 mmol/L 06/04/19 08:17 BUN 46 mg/dL (7-17) H 06/04/19 08:17 Creatinine 7.0 mg/dL (0.7-1.2) H 06/04/19 08:17 Estimated GFR 7 ml/min 06/04/19 08:17 BUN/Creatinine Ratio 7 % 06/04/19 08:17 Glucose 74 mg/dL (65-100) 06/04/19 08:17 POC Glucose 85 (70-105) 06/04/19 06:18 Calcium 8.7 mg/dL (8.4-10.2) 06/04/19 08:17 Phosphorus 6.80 mg/dL (2.5-4.5) H 06/03/19 15:07 Total Bilirubin 0.20 mg/dL (0.1-1.2) 06/03/19 15:07 Direct Bilirubin < 0.2 mg/dL (0-0.2) 06/03/19 15:07 Indirect Bilirubin 0.0 mg/dL 06/03/19 15:07 AST 16 units/L (5-40) 06/03/19 15:07 ALT 14 units/L (7-56) 06/03/19 15:07 Alkaline Phosphatase 143 units/L (35-129) H 06/03/19 15:07 NT-Pro-B Natriuret Pep 16939 pg/mL (0-900) H 06/03/19 15:07 Total Protein 7.3 g/dL (6.3-8.2) 06/03/19 15:07 Albumin 4.1 g/dL (3.9-5) 06/03/19 15:07 Albumin/Globulin Ratio 1.3 % 06/03/19 15:07 Hepatitis A IgM Ab Non-reactive (NonReactive) 06/03/19 15:08 Hep Bs Antigen Non-reactive (Negative) 06/03/19 15:08 Hep B Core IgM Ab Non-reactive (NonReactive) 06/03/19 15:08 Hepatitis C Antibody Non-reactive (NonReactive) 06/03/19 15:08 Active Medications - Current Medications Current Medications: Generic Name Dose Route Start Last Admin Trade Name Freq PRN Reason Stop Dose Admin Aspirin 81 mg 06/04/19 14:08 Baby Aspirin PO 06/04/19 14:09 ONCE ONE Atorvastatin Calcium 40 mg 06/03/19 22:00 06/03/19 22:30 Lipitor PO 40 mg QHS JOÃO Administration Carvedilol 12.5 mg 06/04/19 10:00 06/04/19 09:05 Coreg PO 12.5 mg BID JOÃO Administration Clonidine HCl 0.2 mg 06/03/19 22:51 06/04/19 07:23 Catapres PO 0.2 mg TID JOÃO Administration Clonidine HCl 0.1 mg 06/03/19 23:15 06/03/19 23:32 Catapres PO 0.1 mg TID JOÃO Administration Heparin Sodium (Porcine) 5,000 unit 06/04/19 18:00 Heparin SUB-Q Q12H JOÃO Hydralazine HCl 100 mg 06/04/19 00:00 06/04/19 05:17 Apresoline PO 100 mg Q8HR JOÃO Administration Hydralazine HCl 10 mg 06/04/19 06:35 06/04/19 07:17 Apresoline IV 10 mg Q4H PRN Administration Hypertension Nicardipine HCl 50 mg/ Sodium 250 mls @ 25 mls/hr 06/04/19 09:00 06/04/19 10:08 Chloride IV 0 mg/hr TITR JOÃO 0 mls/hr Titration Protocol 5 MG/HR Insulin Glargine 25 units 06/04/19 22:00 Lantus SUB-Q QHS JOÃO Nifedipine 60 mg 06/04/19 10:00 06/04/19 09:05 Procardia Xl PO 60 mg BID JOÃO Administration
--- NOTE | 2019-06-04 12:19 | Consultation ---
History of Present Illness - Reason for Consult Consult date: 06/04/19 end stage renal disease - History of Present Illness 64 YO Female with HTN, DM, ESRD on HD(T,R,Sa), Obesity Hypoventilation Syndrome presents to ED for evaluation who missed dialysis due to worsening weakness EKG showed sinus bradycardia and was noted to have severe hyperkalemia she underwent STAT HD which she tolerated well, she remains to feel weak. Past History Past Medical History: diabetes, ESRD, hypertension Past Surgical History: Other (Dialysis access) Social history: single. denies: smoking, alcohol abuse, prescription drug abuse Family history: diabetes, hypertension Medications and Allergies Allergies Allergy/AdvReac Type Severity Reaction Status Date / Time No Known Allergies Allergy Unverified 01/02/18 13:47 Home Medications Medication Instructions Recorded Confirmed Last Taken Type Atorvastatin [Lipitor] 40 mg PO QHS 01/03/18 06/03/19 Unknown History Insulin Glargine [Lantus VIAL] 25 units SUB-Q QHS #1 units 01/05/18 06/03/19 Unknown Rx Losartan [Cozaar] 50 mg PO QDAY 30 Days #30 tablet 01/05/18 06/03/19 Unknown Rx NIFEdipine XL [Procardia Xl] 60 mg PO BID 30 Days #60 tablet 01/05/18 06/03/19 Unknown Rx carvediloL [Coreg] 12.5 mg PO BID 30 Days #60 tablet 01/05/18 06/03/19 Unknown Rx hydrALAZINE [Apresoline TAB] 100 mg PO TID 30 Days #90 tab 01/05/18 06/03/19 Unknown Rx Torsemide [Demadex] 100 mg PO DAILY 06/03/19 06/03/19 Unknown History cloNIDine [Catapres] 0.3 mg PO TID 06/03/19 06/03/19 Unknown History traMADoL [Ultram 50 MG tab] 50 mg PO Q6H PRN 06/03/19 06/03/19 Unknown History Active Meds: Active Medications Aspirin (Baby Aspirin) 81 mg PO ONCE ONE Stop: 06/04/19 14:09 Atorvastatin Calcium (Lipitor) 40 mg PO QHS [facility] Last Admin: 06/03/19 22:30 Dose: 40 mg Documented by: Carvedilol (Coreg) 12.5 mg PO BID [facility] Last Admin: 06/04/19 09:05 Dose: 12.5 mg Documented by: Clonidine HCl (Catapres) 0.2 mg PO TID [facility] Last Admin: 06/04/19 07:23 Dose: 0.2 mg Documented by: Clonidine HCl (Catapres) 0.1 mg PO TID [facility] Last Admin: 06/03/19 23:32 Dose: 0.1 mg Documented by: Heparin Sodium (Porcine) (Heparin) 5,000 unit SUB-Q Q12H JOÃO Hydralazine HCl (Apresoline) 100 mg PO Q8HR [facility] Last Admin: 06/04/19 05:17 Dose: 100 mg Documented by: Hydralazine HCl (Apresoline) 10 mg IV Q4H PRN PRN Reason: Hypertension Last Admin: 06/04/19 11:47 Dose: 10 mg Documented by: Nicardipine HCl 50 mg/ Sodium (Chloride) 250 mls @ 25 mls/hr IV TITR [facility]; Protocol Last Titration: 06/04/19 10:08 Dose: 0 mg/hr, 0 mls/hr Documented by: Insulin Glargine (Lantus) 25 units SUB-Q QHS [facility] Nifedipine (Procardia Xl) 60 mg PO BID [facility] Last Admin: 06/04/19 09:05 Dose: 60 mg Documented by: Review of Systems All systems: negative (weakness) Exam - Vital Signs Vital signs: Vital Signs Pulse Resp BP Pulse Ox 44 L 14 157/61 95 06/03/19 12:44 06/03/19 12:44 06/03/19 12:44 06/03/19 12:44 - General Appearance General appearance: well-developed, well-nourished, obese EENT: ATNC, PERRL Neck: Present: neck supple Respiratory: Clear to Ascultation Heart: regular, S1S2 Gastrointestinal: Present: normoactive bowel sounds Integumentary: no rash, warm and dry Neurologic: no focal deficit, no asterixis Psychiatric: cooperative Results - Lab Results 06/04/19 08:17 06/04/19 08:17 Most recent lab results ABG pH 7.239 pH Units (7.350-7.450) L 06/03/19 16:00 ABG pCO2 42.5 mm Hg 06/03/19 16:00 ABG pO2 71.4 mm Hg (80.0-90.0) L 06/03/19 16:00 ABG HCO3 17.8 mmol/L (20.0-26.0) L 06/03/19 16:00 ABG O2 Saturation 90.7 % (95.0-99.0) L 06/03/19 16:00 Calcium 8.7 mg/dL (8.4-10.2) 06/04/19 08:17 Phosphorus 6.80 mg/dL (2.5-4.5) H 06/03/19 15:07 Assessment and Plan Hypoxic respiratory failure Hyperkalemia ESRD on HD DM type II HTN s/p STAT HD yesterday, significant improvement in K, will repeat HD today renally dose meds strict I&O daily weight Lj Mello MD [phone]
[2019-06-04] MEDS ORDERED: SODIUM POLYSTYRENE 15 GM/60 ML ORAL LIQD PO ONE (12:20)
[2019-06-04] MEDS: cloNIDine 0.1 MG TAB PO SCH ×4 (12:54→22:19)
[2019-06-04] MEDS ORDERED: ASPIRIN 81 MG TAB CHEW PO ONE (14:08)
--- NOTE | 2019-06-04 14:30 | Progress Note ---
Assessment and Plan Acute hypoxemic respiratory failure. Symptomatic hyperkalemia. Symptomatic bradycardia. Bilateral pleural effusions. End-stage renal disease, on dialysis. Possible acute coronary syndrome. Obesity. Possible obstructive sleep apnea. Likely hypoventilation. - continue supplemental oxygen as needed to keep O2 sat's > 90% - continue bronchodilators with pulmonary hygiene per RT - continue HD/UF for toxin and volume clearance - PT/OT as tolerated - mobility protocols for pressure ulcer prophylaxis - continue accuchecks with glycemic control per SSI for target BG < 180 mg/dl - outpatient pulmonary / sleep clinic evaluation - weight loss counseled - GI & VTE prophylaxis - Flu & pneumovax addressed per protocol - continue other care per attending / other consultants ... re-evaluate in am & prn Subjective Date of service: 06/04/19 Principal diagnosis: Ac hypoxemic resp failure; Hyperkalemia; Bradycardia; ESRD; Obesity Interval history: Patient is seen today for: Acute hypoxemic respiratory failure; Symptomatic hyperkalemia; Symptomatic bradycardia; Bilateral pleural effusions; End-stage renal disease, on dialysis; Obesity Seen and examined at bedside; 24hour events reviewed; nursing and respiratory care staff consulted; no adverse overnight events reported to me; resting peacefully in bed; still somnolent but no lethargy; bradycardia has resolved; now s/p HD/UF; denies acute chest pains or palpitations Objective Vital Signs - 12hr 06/04/19 06/04/19 06/04/19 02:41 02:51 03:01 Temperature Pulse Rate 85 89 90 Pulse Rate [ From Monitor] Respiratory 11 L 10 L 10 L Rate Blood Pressure 180/59 165/63 190/75 O2 Sat by Pulse 99 99 99 Oximetry 06/04/19 06/04/19 06/04/19 03:11 03:21 03:30 Temperature Pulse Rate 92 H 88 87 Pulse Rate [ From Monitor] Respiratory 10 L 10 L 9 L Rate Blood Pressure 190/82 190/73 190/82 O2 Sat by Pulse 99 99 99 Oximetry 06/04/19 06/04/19 06/04/19 03:41 03:51 04:00 Temperature Pulse Rate 88 85 89 Pulse Rate [ 89 From Monitor] Respiratory 9 L 9 L 21 Rate Blood Pressure 213/79 183/78 O2 Sat by Pulse 98 98 95 Oximetry 06/04/19 06/04/19 06/04/19 04:01 04:11 04:21 Temperature Pulse Rate 86 87 92 H Pulse Rate [ From Monitor] Respiratory 9 L 9 L 13 Rate Blood Pressure 187/70 176/74 189/69 O2 Sat by Pulse 99 98 98 Oximetry 06/04/19 06/04/19 06/04/19 04:31 04:41 04:51 Temperature Pulse Rate 90 91 H 90 Pulse Rate [ From Monitor] Respiratory 14 14 14 Rate Blood Pressure 189/69 196/71 185/67 O2 Sat by Pulse 97 98 96 Oximetry 06/04/19 06/04/19 06/04/19 05:01 05:11 05:21 Temperature Pulse Rate 90 87 86 Pulse Rate [ From Monitor] Respiratory 14 12 12 Rate Blood Pressure 185/67 203/74 191/68 O2 Sat by Pulse 97 97 97 Oximetry 06/04/19 06/04/19 06/04/19 05:31 05:41 05:51 Temperature Pulse Rate 84 85 85 Pulse Rate [ From Monitor] Respiratory 10 L 9 L 9 L Rate Blood Pressure 228/82 215/76 214/87 O2 Sat by Pulse 98 98 98 Oximetry 06/04/19 06/04/19 06/04/19 06:01 06:11 06:21 Temperature Pulse Rate 84 82 81 Pulse Rate [ From Monitor] Respiratory 9 L 9 L 9 L Rate Blood Pressure 217/78 191/86 179/89 O2 Sat by Pulse 98 99 99 Oximetry 06/04/19 06/04/19 06/04/19 06:31 06:41 06:51 Temperature Pulse Rate 80 81 83 Pulse Rate [ From Monitor] Respiratory 12 9 L 8 L Rate Blood Pressure 209/111 235/90 227/86 O2 Sat by Pulse 99 99 99 Oximetry 06/04/19 06/04/19 06/04/19 07:01 07:11 07:17 Temperature Pulse Rate 82 82 83 Pulse Rate [ From Monitor] Respiratory 8 L 10 L Rate Blood Pressure 234/97 242/83 230/83 O2 Sat by Pulse 99 99 Oximetry 06/04/19 06/04/19 06/04/19 07:21 07:23 07:31 Temperature Pulse Rate 89 89 91 H Pulse Rate [ From Monitor] Respiratory 10 L 10 L Rate Blood Pressure 216/88 216/88 222/80 O2 Sat by Pulse 98 98 Oximetry 06/04/19 06/04/19 06/04/19 07:41 07:42 07:46 Temperature Pulse Rate 89 Pulse Rate [ From Monitor] Respiratory 11 L Rate Blood Pressure 207/81 O2 Sat by Pulse 99 99 100 Oximetry 06/04/19 06/04/19 06/04/19 07:51 08:00 08:01 Temperature 98.5 F Pulse Rate 87 84 Pulse Rate [ From Monitor] Respiratory 10 L 9 L Rate Blood Pressure 207/70 202/70 O2 Sat by Pulse 99 99 Oximetry 06/04/19 06/04/19 06/04/19 08:11 08:21 08:31 Temperature Pulse Rate 84 83 81 Pulse Rate [ From Monitor] Respiratory 9 L 9 L 9 L Rate Blood Pressure 202/70 202/70 202/70 O2 Sat by Pulse 99 98 99 Oximetry 06/04/19 06/04/19 06/04/19 08:45 09:01 09:05 Temperature Pulse Rate 79 79 81 Pulse Rate [ From Monitor] Respiratory 9 L 9 L Rate Blood Pressure 202/70 196/68 196/68 O2 Sat by Pulse 99 99 Oximetry 06/04/19 06/04/19 06/04/19 09:15 09:31 09:45 Temperature Pulse Rate 90 84 76 Pulse Rate [ From Monitor] Respiratory 16 11 L 9 L Rate Blood Pressure 194/161 178/62 140/47 O2 Sat by Pulse 99 98 97 Oximetry 06/04/19 06/04/19 06/04/19 10:08 10:15 10:31 Temperature Pulse Rate 72 72 69 Pulse Rate [ From Monitor] Respiratory 9 L 8 L 8 L Rate Blood Pressure 116/42 O2 Sat by Pulse 97 98 99 Oximetry 06/04/19 06/04/19 06/04/19 10:45 11:00 11:16 Temperature Pulse Rate 69 69 73 Pulse Rate [ From Monitor] Respiratory 10 L 9 L 9 L Rate Blood Pressure 116/42 122/44 122/44 O2 Sat by Pulse 99 99 99 Oximetry 06/04/19 06/04/19 06/04/19 11:30 11:46 11:47 Temperature Pulse Rate 75 72 73 Pulse Rate [ From Monitor] Respiratory 9 L 9 L Rate Blood Pressure 189/66 189/66 189/66 O2 Sat by Pulse 98 98 Oximetry 06/04/19 06/04/19 06/04/19 12:00 12:16 12:30 Temperature 98.6 F Pulse Rate 74 78 78 Pulse Rate [ From Monitor] Respiratory 9 L 10 L 11 L Rate Blood Pressure 186/70 186/70 179/65 O2 Sat by Pulse 99 99 93 Oximetry 06/04/19 06/04/19 06/04/19 12:46 12:53 13:00 Temperature Pulse Rate 80 78 82 Pulse Rate [ From Monitor] Respiratory 11 L 13 Rate Blood Pressure 198/69 198/69 199/66 O2 Sat by Pulse 91 94 Oximetry 06/04/19 06/04/19 06/04/19 13:16 13:30 13:46 Temperature Pulse Rate 81 81 79 Pulse Rate [ From Monitor] Respiratory 11 L 10 L 11 L Rate Blood Pressure 199/66 161/145 167/61 O2 Sat by Pulse 93 92 92 Oximetry 06/04/19 14:00 Temperature Pulse Rate 79 Pulse Rate [ From Monitor] Respiratory 9 L Rate Blood Pressure 166/59 O2 Sat by Pulse 90 Oximetry Constitutional: no acute distress, other (elderly looking obese AAF, normoceph alic with mildly increased respiratory effort at rest) Eyes: non-icteric ENT: oropharynx moist, other (mallampati 3) Neck: supple, no lymphadenopathy, no JVD, other (large neck circumference) Effort: mildly labored Ascultation: Bilateral: diminished breath sounds, rhonchi Percussion: Bilateral: not dull Cardiovascular: regular rate and rhythm Gastrointestinal: normoactive bowel sounds, soft, non-tender, non-distended Integumentary: rash Extremities: no cyanosis, pink and warm, pulses normal, edema (trace) Neurologic: normal mental status, non-focal exam, pupils equal and round, CN II- XII normal Psychiatric: mood appropriate, affect normal CBC and BMP: 06/05/19 17:51 06/05/19 17:51 ABG, PT/INR, D-dimer: ABG ABG pH 7.239 pH Units (7.350-7.450) L 06/03/19 16:00 ABG pCO2 42.5 mm Hg 06/03/19 16:00 ABG pO2 71.4 mm Hg (80.0-90.0) L 06/03/19 16:00 ABG O2 Saturation 90.7 % (95.0-99.0) L 06/03/19 16:00 PT/INR, D-dimer PT 15.3 Sec. (12.2-14.9) H 06/03/19 15:08 INR 1.19 (0.87-1.13) H 06/03/19 15:08 Abnormal lab findings: Abnormal Labs 06/03/19 06/03/19 06/03/19 13:15 15:07 15:07 RBC 3.57 L RDW 18.1 H Lymph % (Auto) 7.5 L [place] % (Auto) Lymph # 0.6 L Seg Neutrophils % 86.0 H PT INR APTT ABG pH ABG pO2 ABG HCO3 ABG O2 Saturation ABG Base Excess ABG Hemoglobin ABG Methemoglobin Oxyhemoglobin Sodium 131 L Potassium 9.2 H* Chloride 90.4 L Carbon Dioxide 16 L BUN 100 H Creatinine 11.0 H Glucose 225 H POC Glucose 192 H Phosphorus Alkaline Phosphatase 143 H NT-Pro-B Natriuret Pep 50164 H 06/03/19 06/03/19 06/03/19 15:07 15:08 16:00 RBC RDW Lymph % (Auto) [place] % (Auto) Lymph # Seg Neutrophils % PT 15.3 H INR 1.19 H APTT 40.5 H ABG pH 7.239 L ABG pO2 71.4 L ABG HCO3 17.8 L ABG O2 Saturation 90.7 L ABG Base Excess -9.1 L ABG Hemoglobin 10.2 L ABG Methemoglobin > 99.0 H Oxyhemoglobin 89.5 L Sodium Potassium Chloride Carbon Dioxide BUN Creatinine Glucose POC Glucose Phosphorus 6.80 H Alkaline Phosphatase NT-Pro-B Natriuret Pep 06/03/19 06/03/19 06/04/19 18:37 22:56 08:17 RBC RDW 18.0 H Lymph % (Auto) 8.3 L [place] % (Auto) 8.1 H Lymph # 0.6 L Seg Neutrophils % 82.2 H PT INR APTT ABG pH ABG pO2 ABG HCO3 ABG O2 Saturation ABG Base Excess ABG Hemoglobin ABG Methemoglobin Oxyhemoglobin Sodium Potassium Chloride Carbon Dioxide BUN Creatinine Glucose POC Glucose 214 H 133 H Phosphorus Alkaline Phosphatase NT-Pro-B Natriuret Pep 06/04/19 06/04/19 08:17 12:01 RBC RDW Lymph % (Auto) [place] % (Auto) Lymph # Seg Neutrophils % PT INR APTT ABG pH ABG pO2 ABG HCO3 ABG O2 Saturation ABG Base Excess ABG Hemoglobin ABG Methemoglobin Oxyhemoglobin Sodium Potassium 5.7 H D Chloride Carbon Dioxide BUN 46 H Creatinine 7.0 H Glucose POC Glucose 162 H Phosphorus Alkaline Phosphatase NT-Pro-B Natriuret Pep Chest x-ray: image reviewed Allied health notes reviewed: nursing
--- NOTE | 2019-06-04 15:07 | Consultation ---
History of Present Illness Consult date: 06/04/19 Consult reason: bradycardia History of present illness: 64 YO Female with HTN, DM, ESRD on HD(T,,), Obesity Hypoventilation Syndrome presents to ED for evaluation due to progressive fatigue. She had missed multiple sessions of dialysis and was noted to have bradycardia with heart rates from the 30s-40s. She was noted to be severely hyperkalemic and underwent urgent dialysis. Heart rate has now improved. She was also noted to be volume overloaded and BP was markedly elevated. ECG on presentation was consistent with sinus bradycardia in low 40s with period of sinus arrest. Of note, she previously had cardiac evaluation at [place] in 12/2017. Cardiac cath at that time had revealed no significant CAD and echo had revealed normal left ventricular systolic function, calcified bicuspid aortic valve but no significant aortic stenosis or regurgitation. Past History Past Medical History: diabetes, ESRD, hypertension Past Surgical History: Other (Dialysis access) Social history: single. denies: smoking, alcohol abuse, prescription drug abuse Family history: diabetes, hypertension Medications and Allergies Allergies Allergy/AdvReac Type Severity Reaction Status Date / Time No Known Allergies Allergy Unverified 01/02/18 13:47 Home Medications Medication Instructions Recorded Confirmed Last Taken Type Atorvastatin [Lipitor] 40 mg PO QHS 01/03/18 06/03/19 Unknown History Insulin Glargine [Lantus VIAL] 25 units SUB-Q QHS #1 units 01/05/18 06/03/19 Unknown Rx Losartan [Cozaar] 50 mg PO QDAY 30 Days #30 tablet 01/05/18 06/03/19 Unknown Rx NIFEdipine XL [Procardia Xl] 60 mg PO BID 30 Days #60 tablet 01/05/18 06/03/19 U nknown Rx carvediloL [Coreg] 12.5 mg PO BID 30 Days #60 tablet 01/05/18 06/03/19 Unknown Rx hydrALAZINE [Apresoline TAB] 100 mg PO TID 30 Days #90 tab 01/05/18 06/03/19 Unknown Rx Torsemide [Demadex] 100 mg PO DAILY 06/03/19 06/03/19 Unknown History cloNIDine [Catapres] 0.3 mg PO TID 06/03/19 06/03/19 Unknown History traMADoL [Ultram 50 MG tab] 50 mg PO Q6H PRN 06/03/19 06/03/19 Unknown History Active Meds: Active Medications Atorvastatin Calcium (Lipitor) 40 mg PO QHS [facility] Last Admin: 06/03/19 22:30 Dose: 40 mg Documented by: Carvedilol (Coreg) 12.5 mg PO BID [facility] Last Admin: 06/04/19 09:05 Dose: 12.5 mg Documented by: Clonidine HCl (Catapres) 0.2 mg PO TID [facility] Last Admin: 06/04/19 12:53 Dose: 0.2 mg Documented by: Clonidine HCl (Catapres) 0.1 mg PO TID [facility] Last Admin: 06/04/19 12:54 Dose: 0.1 mg Documented by: Heparin Sodium (Porcine) (Heparin) 5,000 unit SUB-Q Q12H [facility] Hydralazine HCl (Apresoline) 100 mg PO Q8HR [facility] Last Admin: 06/04/19 12:54 Dose: 100 mg Documented by: Hydralazine HCl (Apresoline) 10 mg IV Q4H PRN PRN Reason: Hypertension Last Admin: 06/04/19 11:47 Dose: 10 mg Documented by: Nicardipine HCl 50 mg/ Sodium (Chloride) 250 mls @ 25 mls/hr IV TITR [facility]; Protocol Last Titration: 06/04/19 10:08 Dose: 0 mg/hr, 0 mls/hr Documented by: Insulin Glargine (Lantus) 25 units SUB-Q QHS [facility] Nifedipine (Procardia Xl) 60 mg PO BID [facility] Last Admin: 06/04/19 09:05 Dose: 60 mg Documented by: Review of Systems All systems: negative (per hpi) Physical Examination Vital Signs Pulse Resp BP Pulse Ox 44 L 14 157/61 95 06/03/19 12:44 06/03/19 12:44 06/03/19 12:44 06/03/19 12:44 General appearance: no acute distress HEENT: Positive: PERRL Cardiac: Positive: Reg Rate and Rhythm Lungs: Positive: clear to auscultation Abdomen: Positive: Soft, Active Bowel Sounds Extremities: Absent: edema Results 06/04/19 08:17 06/04/19 08:17 Cardiac Enzymes 06/03/19 Range/Units 15:07 AST 16 (5-40) units/L Coagulation 06/03/19 Range/Units 15:08 PT 15.3 H (12.2-14.9) Sec. INR 1.19 H (0.87-1.13) APTT 40.5 H (24.2-36.6) Sec. CBC 06/03/19 06/04/19 Range/Units 15:07 08:17 WBC 8.4 7.8 (4.5-11.0) K/mm3 RBC 3.57 L 3.74 (3.65-5.03) M/mm3 Hgb 10.1 10.7 (10.1-14.3) gm/dl Hct 32.3 33.2 (30.3-42.9) % Plt Count 233 219 (140-440) K/mm3 Lymph # 0.6 L 0.6 L (1.2-5.4) K/mm3 [place] # 0.5 0.6 (0.0-0.8) K/mm3 Eos # 0.0 0.1 (0.0-0.4) K/mm3 Baso # 0.0 0.0 (0.0-0.1) K/mm3 Comprehensive Metabolic Panel 06/03/19 06/04/19 Range/Units 15:07 08:17 Sodium 131 L 142 D (137-145) mmol/L Potassium 9.2 H* 5.7 H D (3.6-5.0) mmol/L Chloride 90.4 L 98.3 (98-107) mmol/L Carbon Dioxide 16 L 23 D (22-30) mmol/L BUN 100 H 46 H (7-17) mg/dL Creatinine 11.0 H 7.0 H (0.7-1.2) mg/dL Glucose 225 H 74 (65-100) mg/dL Calcium 9.1 8.7 (8.4-10.2) mg/dL Direct Bilirubin < 0.2 (0-0.2) mg/dL Indirect Bilirubin 0.0 mg/dL AST 16 (5-40) units/L ALT 14 (7-56) units/L Alkaline Phosphatase 143 H (35-129) units/L Total Protein 7.3 (6.3-8.2) g/dL Albumin 4.1 (3.9-5) g/dL Assessment and Plan Sinus bradycardia and period of sinus arrest in setting of severe hyperkalemia. Now improved. She previously had cardiac evaluation at [place] in 12/2017. Cardiac cath at that time had revealed no significant CAD and echo had revealed normal left ventricular systolic function, calcified bicuspid aortic valve but no significant aortic stenosis or regurgitation ESRD on HD Htn DM Volume overoad Noncompliance Recommend: Continue current therapy including hemodialysis. Resume home BP medications - will titrate as needed Repeat echo
[2019-06-04] MEDS: HEPARIN 5,000 UNIT/1 ML VIAL SUB-Q SCH (17:35)
[2019-06-04] MEDS: INSULIN GLARGINE 100 UNITS/ML SUB-Q SCH (22:04)
[2019-06-05] MEDS: HEPARIN 5,000 UNIT/1 ML VIAL SUB-Q SCH ×2 (07:12→17:37)
[2019-06-05] MEDS: hydrALAZINE 100 MG TAB PO SCH ×3 (07:13→21:01)
[2019-06-05] MEDS ORDERED: NIFEdipine XL 60 MG TAB PO SCH (07:16)
--- NOTE | 2019-06-05 07:18 | Progress Note ---
Assessment and Plan Assessment and plan: 64 YO Female with HTN, DM, ESRD on HD(T,R,Sa), Obesity Hypoventilation Syndrome presents to ED for evaluation. Patient is lethargic at time of my exam and is unable to provide detailed history. Patient does however provide minimal history. Additional history taken from ED staff as well as EMS staff. Patient reports feeling progressively weak over the past 4 days with worsening symptoms over the same timeframe. Patient acknowledges noncompliance with dialysis. EMS was notified and upon arrival the patient was found to be in distress. The patient was transported to [facility] for further care and evaluation. Patient seen and evaluated in the emergency department. Lab and imaging studies reviewed. Patient was found to have acute hypoxemic respiratory failure with a pulse oximetry of 86% on room air as well as metabolic encephalopathy, end-stage renal disease, fluid overload secondary to missed hemodialysis. * Patient admitted to [facility] for medical stabilization and treatment due to high risk of cardiopulmonary decompensation. EKG showed sinus bradycardia. Cardiology consulted in ED. EKG findings reviewed with fisheries management biologist on-call and suspected due to hyperkalemia. Nephrology team consulted in ED for urgent dialysis. Patient was found to be bradycardic with a heart rate ranging from 35-45 at the time of my evaluation. * Chest x-ray, pulse oximetry, nebulizer therapy, pulmonary team consulted in ED, noninvasive positive pressure ventilation, arterial blood blood gas. * Nephrology consulted in ED, urgent dialysis, BMP, repeat BMP in a.m., monitor urine output every shift, avoid nephrotoxic agents. * Urgent dialysis, neuro check, aspiration precaution, seizure precaution, supp ortive care. * Urgent dialysis, BMP, repeat BMP in a.m., IV bicarbonate therapy. 06/04 * Labs clinically improving. Patients mental status improved this am. Clinically improved following dialysis and resumption of home meds. Cardene drip started discontinued as BP better. Ok to transfer to [facility] with remote tele 06/05 * BP still elevated based on my review this morning, was not notified yesterday. Will stop coreg and switch to Labetalol 100mg po q8hr. Will also increase Nifedipene to 90mg PO BID. will need a consistent BP of at least less than 170 to discharge patient. Unsure why patient did not have dialysis yesterday as ordered by jackscrew man he is evaluating. Daily weight and strict I's and O's cardiology evaluated echocardiogram ordered to evaluate aortic valve. CXR: IMPRESSION: 1. Diffuse pulmonary edema as noted Acute hypoxemic respiratory failure Acute Pulmonary Edema Hyperkalemia-Severe ESRD Acute Metabolic Encephalopathy now resolved Acute Metabolic Acidosis HTN Diabetes Mellitus None Compliance DVT/GI prophy History Interval history: Patient seen and examined. states she is improved, no new compliants excep BP remains elevated. Hospitalist Physical - Physical exam Narrative exam: VITAL SIGNS: Reviewed. GENERAL: The patient appears normally developed, obese vital signs as documented. HEAD: No signs of head trauma. EYES: Pupils are equal. Extraocular motions intact. EARS: Hearing grossly intact. MOUTH: Oropharynx is normal. NECK: No adenopathy, no JVD. CHEST: Chest with clear breath sounds bilaterally. No wheezes, rales, or rhonchi. CARDIAC: Regular rate and rhythm. S1 and S2, with 3 of 5 systolic ejection murmurs, gallops, or rubs. VASCULAR: Trace bilateral pitting edema. Peripheral pulses normal and equal in all extremities. ABDOMEN: Soft, truncal obesity non tender and non distended. No rebound or guarding, and no masses palpated. Bowel Sounds normal. MUSCULOSKELETAL: Good range of motion of all major joints. Extremities without clubbing, cyanosis. Trace bilateral pittingor edema. NEUROLOGIC EXAM: Alert and oriented x 3 No focal sensory or strength defic its. Speech normal. Follows commands. PSYCHIATRIC: Mood normal. SKIN: detail exam as documented in skin assessment - Constitutional Vitals: Temp Pulse Resp BP Pulse Ox 98.8 F 79 20 200/80 94 06/05/19 00:12 06/05/19 00:12 06/05/19 00:12 06/05/19 00:12 06/05/19 00:12 General appearance: Present: mild distress, obese Results - Labs CBC & Chem 7: 06/04/19 08:17 06/04/19 08:17 Labs: Laboratory Last Values WBC 7.8 K/mm3 (4.5-11.0) 06/04/19 08:17 RBC 3.74 M/mm3 (3.65-5.03) 06/04/19 08:17 Hgb 10.7 gm/dl (10.1-14.3) 06/04/19 08:17 Hct 33.2 % (30.3-42.9) 06/04/19 08:17 MCV 89 fl (79-97) 06/04/19 08:17 MCH 29 pg (28-32) 06/04/19 08:17 MCHC 32 % (30-34) 06/04/19 08:17 RDW 18.0 % (13.2-15.2) H 06/04/19 08:17 Plt Count 219 K/mm3 (140-440) 06/04/19 08:17 Lymph % (Auto) 8.3 % (13.4-35.0) L 06/04/19 08:17 [place] % (Auto) 8.1 % (0.0-7.3) H 06/04/19 08:17 Eos % (Auto) 0.8 % (0.0-4.3) 06/04/19 08:17 Baso % (Auto) 0.6 % (0.0-1.8) 06/04/19 08:17 Lymph # 0.6 K/mm3 (1.2-5.4) L 06/04/19 08:17 [place] # 0.6 K/mm3 (0.0-0.8) 06/04/19 08:17 Eos # 0.1 K/mm3 (0.0-0.4) 06/04/19 08:17 Baso # 0.0 K/mm3 (0.0-0.1) 06/04/19 08:17 Seg Neutrophils % 82.2 % (40.0-70.0) H 06/04/19 08:17 Seg Neutrophils # 6.4 K/mm3 (1.8-7.7) 06/04/19 08:17 PT 15.3 Sec. (12.2-14.9) H 06/03/19 15:08 INR 1.19 (0.87-1.13) H 06/03/19 15:08 APTT 40.5 Sec. (24.2-36.6) H 06/03/19 15:08 ABG pH 7.239 pH Units (7.350-7.450) L 06/03/19 16:00 ABG pCO2 42.5 mm Hg 06/03/19 16:00 ABG pO2 71.4 mm Hg (80.0-90.0) L 06/03/19 16:00 ABG HCO3 17.8 mmol/L (20.0-26.0) L 06/03/19 16:00 ABG O2 Saturation 90.7 % (95.0-99.0) L 06/03/19 16:00 ABG O2 Content 12.9 (0.0-44) 06/03/19 16:00 ABG Base Excess -9.1 mmol/L (-2.0-3.0) L 06/03/19 16:00 ABG Hemoglobin 10.2 gm/dl (12.0-16.0) L 06/03/19 16:00 ABG Carboxyhemoglobin 1.5 % (0.0-5.0) 06/03/19 16:00 ABG Methemoglobin > 99.0 % (0.0-1.5) H 06/03/19 16:00 Oxyhemoglobin 89.5 % (95.0-99.0) L 06/03/19 16:00 FiO2 36 % 06/03/19 16:00 Sodium 142 mmol/L (137-145) D 06/04/19 08:17 Potassium 5.7 mmol/L (3.6-5.0) H D 06/04/19 08:17 Chloride 98.3 mmol/L (98-107) 06/04/19 08:17 Carbon Dioxide 23 mmol/L (22-30) D 06/04/19 08:17 Anion Gap 26 mmol/L 06/04/19 08:17 BUN 46 mg/dL (7-17) H 06/04/19 08:17 Creatinine 7.0 mg/dL (0.7-1.2) H 06/04/19 08:17 Estimated GFR 7 ml/min 06/04/19 08:17 BUN/Creatinine Ratio 7 % 06/04/19 08:17 Glucose 74 mg/dL (65-100) 06/04/19 08:17 POC Glucose 251 (70-105) H 06/04/19 22:03 Calcium 8.7 mg/dL (8.4-10.2) 06/04/19 08:17 Phosphorus 6.80 mg/dL (2.5-4.5) H 06/03/19 15:07 Total Bilirubin 0.20 mg/dL (0.1-1.2) 06/03/19 15:07 Direct Bilirubin < 0.2 mg/dL (0-0.2) 06/03/19 15:07 Indirect Bilirubin 0.0 mg/dL 06/03/19 15:07 AST 16 units/L (5-40) 06/03/19 15:07 ALT 14 units/L (7-56) 06/03/19 15:07 Alkaline Phosphatase 143 units/L (35-129) H 06/03/19 15:07 NT-Pro-B Natriuret Pep 03692 pg/mL (0-900) H 06/03/19 15:07 Total Protein 7.3 g/dL (6.3-8.2) 06/03/19 15:07 Albumin 4.1 g/dL (3.9-5) 06/03/19 15:07 Albumin/Globulin Ratio 1.3 % 06/03/19 15:07 Hepatitis A IgM Ab Non-reactive (NonReactive) 06/03/19 15:08 Hep Bs Antigen Non-reactive (Negative) 06/03/19 15:08 Hep B Core IgM Ab Non-reactive (NonReactive) 06/03/19 15:08 Hepatitis C Antibody Non-reactive (NonReactive) 06/03/19 15:08 Active Medications - Current Medications Current Medications: Generic Name Dose Route Start Last Admin Trade Name Freq PRN Reason Stop Dose Admin Atorvastatin Calcium 40 mg 06/03/19 22:00 06/04/19 22:00 Lipitor PO 40 mg QHS JOÃO Administration Clonidine HCl 0.2 mg 06/03/19 22:51 06/04/19 21:04 Catapres PO 0.2 mg TID JOÃO Administration Clonidine HCl 0.1 mg 06/03/19 23:15 06/04/19 22:19 Catapres PO 0.1 mg TID JOÃO Administration Heparin Sodium (Porcine) 5,000 unit 06/04/19 18:00 06/05/19 07:12 Heparin SUB-Q 5,000 unit Q12H JOÃO Administration Hydralazine HCl 100 mg 06/04/19 00:00 06/05/19 07:13 Apresoline PO 100 mg Q8HR JOÃO Administration Hydralazine HCl 10 mg 06/04/19 06:35 06/04/19 11:47 Apresoline IV 10 mg Q4H PRN Administration Hypertension Insulin Glargine 25 units 06/04/19 22:00 06/04/19 22:04 Lantus SUB-Q 25 units QHS JOÃO Administration Labetalol HCl 100 mg 06/05/19 08:00 Labetalol PO Q8HR JO[facility]O
--- NOTE | 2019-06-05 07:58 | Progress Note ---
Assessment and Plan Hypoxic respiratory failure Hyperkalemia ESRD on HD DM type II HTN HD was not done yesterday, unclear reason, will discuss with dialysis nurse, HD ordered for today will assess dialysis needs daily renally dose meds strict I&O daily weight Lj Mello MD [phone] Subjective Date of service: 06/05/19 Principal diagnosis: ESRD Interval history: no overnight events Objective - Vital Signs Vital signs: Vital Signs - 12hr 06/04/19 06/04/19 06/04/19 20:00 20:55 21:04 Temperature Pulse Rate 79 79 90 Pulse Rate [ 79 From Monitor] Respiratory 22 Rate Blood Pressure 196/77 160/100 180/100 O2 Sat by Pulse 96 Oximetry 06/04/19 06/04/19 06/04/19 21:39 21:53 22:00 Temperature 99.3 F Pulse Rate 79 79 Pulse Rate [ From Monitor] Respiratory 20 Rate Blood Pressure 196/77 196/77 O2 Sat by Pulse 99 89 Oximetry 06/04/19 06/04/19 06/05/19 22:17 22:19 00:00 Temperature Pulse Rate 79 79 Pulse Rate [ 79 From Monitor] Respiratory 22 Rate Blood Pressure 196/77 196/77 O2 Sat by Pulse 96 Oximetry 06/05/19 06/05/19 00:12 05:17 Temperature 98.8 F 99.0 F Pulse Rate 79 75 Pulse Rate [ From Monitor] Respiratory 20 20 Rate Blood Pressure 200/80 186/70 O2 Sat by Pulse 94 92 Oximetry - General Appearance General appearance: well-developed, well-nourished, obese EENT: ATNC, PERRL Neck: no JVD, no carotid bruit Respiratory: Present: Decreased Breath Sounds Cardiology: regular, S1S2 Gastrointestinal: normoactive bowel sounds Integumentary: no rash, warm and dry Neurologic: no focal deficit, no asterixis Musculoskeletal: other (trace pitting edema in BLE) Psychiatric: cooperative - Lab 06/04/19 08:17 06/04/19 08:17 Most recent lab results ABG pH 7.239 pH Units (7.350-7.450) L 06/03/19 16:00 ABG pCO2 42.5 mm Hg 06/03/19 16:00 ABG pO2 71.4 mm Hg (80.0-90.0) L 06/03/19 16:00 ABG HCO3 17.8 mmol/L (20.0-26.0) L 06/03/19 16:00 ABG O2 Saturation 90.7 % (95.0-99.0) L 06/03/19 16:00 Calcium 8.7 mg/dL (8.4-10.2) 06/04/19 08:17 Phosphorus 6.80 mg/dL (2.5-4.5) H 06/03/19 15:07 Medications & Allergies - Medications Allergies/Adverse Reactions: Allergies No Known Allergies Allergy (Unverified 01/02/18 13:47) Home Medications: Home Medications Medication Instructions Recorded Confirmed Last Taken Type Atorvastatin [Lipitor] 40 mg PO QHS 01/03/18 06/03/19 Unknown History Insulin Glargine [Lantus VIAL] 25 units SUB-Q QHS #1 units 01/05/18 06/03/19 Unknown Rx Losartan [Cozaar] 50 mg PO QDAY 30 Days #30 tablet 01/05/18 06/03/19 Unknown Rx NIFEdipine XL [Procardia Xl] 60 mg PO BID 30 Days #60 tablet 01/05/18 06/03/19 Unknown Rx carvediloL [Coreg] 12.5 mg PO BID 30 Days #60 tablet 01/05/18 06/03/19 Unknown Rx hydrALAZINE [Apresoline TAB] 100 mg PO TID 30 Days #90 tab 01/05/18 06/03/19 Unknown Rx Torsemide [Demadex] 100 mg PO DAILY 06/03/19 06/03/19 Unknown History cloNIDine [Catapres] 0.3 mg PO TID 06/03/19 06/03/19 Unknown History traMADoL [Ultram 50 MG tab] 50 mg PO Q6H PRN 06/03/19 06/03/19 Unknown History Active Medications: Generic Name Dose Route Start Last Admin Trade Name Freq PRN Reason Stop Dose Admin Atorvastatin Calcium 40 mg 06/03/19 22:00 06/04/19 22:00 Lipitor PO 40 mg QHS JOÃO Administration Clonidine HCl 0.3 mg 06/05/19 08:00 Catapres PO TID JOÃO Heparin Sodium (Porcine) 5,000 unit 06/04/19 18:00 06/05/19 07:12 Heparin SUB-Q 5,000 unit Q12H JOÃO Administration Hydralazine HCl 100 mg 06/04/19 00:00 06/05/19 07:13 Apresoline PO 100 mg Q8HR JOÃO Administration Hydralazine HCl 10 mg 06/04/19 06:35 06/04/19 11:47 Apresoline IV 10 mg Q4H PRN Administration Hypertension Insulin Glargine 25 units 06/04/19 22:00 06/04/19 22:04 Lantus SUB-Q 25 units QHS JOÃO Administration Labetalol HCl 100 mg 06/05/19 08:00 Labetalol PO Q8HR JOÃO Nifedipine 90 mg 06/05/19 08:00 Procardia Xl PO BID JOÃO
[2019-06-05] MEDS ORDERED: DEXTROSE 50% IN WATER (25GM) 50 ML SYRINGE IV PRN (08:42)
--- NOTE | 2019-06-05 08:59 | Progress Note ---
Assessment and Plan Sinus bradycardia and period of sinus arrest in setting of severe hyperkalemia. Now improved. Volume overload s/t missed dialysis ESRD on HD Htn DM Noncompliance LHC at [facility] in 12/2017. revealed no significant CAD An echo done 12/2017 at [facility] reports normal left ventricular systolic function EF 60-65%. Recommendations: We will repeat an echo for LVEF reassessment. Optimal blood pressure management. Subjective Date of service: 06/05/19 Principal diagnosis: ESRD Interval history: No cardiac complaints. BP is not optimal; currently 186/70. Stable sinus rhythm on telemetry. Objective Vital Signs Temp Pulse Pulse Resp BP Pulse Ox 06/05/19 05:17 99.0 F 75 20 186/70 92 06/05/19 00:12 98.8 F 79 20 200/80 94 06/05/19 00:00 79 22 96 06/04/19 22:19 79 196/77 06/04/19 22:17 79 196/77 06/04/19 22:00 79 196/77 06/04/19 21:53 99.3 F 79 20 196/77 89 06/04/19 21:39 99 06/04/19 21:04 90 180/100 06/04/19 20:55 79 160/100 06/04/19 20:00 79 79 22 196/77 96 06/04/19 17:40 98.5 F 79 24 172/70 92 06/04/19 15:00 78 14 166/59 91 06/04/19 14:46 85 13 166/59 92 06/04/19 14:30 79 12 166/59 93 06/04/19 14:16 79 11 L 166/59 92 06/04/19 14:00 79 9 L 166/59 90 06/04/19 13:46 79 11 L 167/61 92 06/04/19 13:30 81 10 L 161/145 92 06/04/19 13:16 81 11 L 199/66 93 06/04/19 13:00 82 13 199/66 94 06/04/19 12:53 78 198/69 06/04/19 12:46 80 11 L 198/69 91 06/04/19 12:30 78 11 L 179/65 93 06/04/19 12:16 78 10 L 186/70 99 06/04/19 12:00 98.6 F 74 9 L 186/70 99 06/04/19 11:47 73 189/66 06/04/19 11:46 72 9 L 189/66 98 06/04/19 11:30 75 9 L 189/66 98 06/04/19 11:16 73 9 L 122/44 99 06/04/19 11:00 69 9 L 122/44 99 06/04/19 10:45 69 10 L 116/42 99 06/04/19 10:31 69 8 L 116/42 99 06/04/19 10:15 72 8 L 98 06/04/19 10:08 72 9 L 97 06/04/19 09:45 76 9 L 140/47 97 06/04/19 09:31 84 11 L 178/62 98 06/04/19 09:15 90 16 194/161 99 06/04/19 09:05 81 196/68 06/04/19 09:01 79 9 L 196/68 99 - Physical Examination General: No Apparent Distress HEENT: Positive: PERRL Neck: Positive: neck supple Cardiac: Positive: Reg Rate and Rhythm Lungs: Positive: Decreased Breath Sounds - Labs and Meds Cardiac Enzymes 06/03/19 06/03/19 06/03/19 Range/Units 13:15 15:07 15:07 WBC 8.4 (4.5-11.0) K/mm3 RBC 3.57 L (3.65-5.03) M/mm3 Hgb 10.1 (10.1-14.3) gm/dl Hct 32.3 (30.3-42.9) % MCV 91 (79-97) fl MCH 28 (28-32) pg MCHC 31 (30-34) % RDW 18.1 H (13.2-15.2) % Plt Count 233 (140-440) K/mm3 Lymph % (Auto) 7.5 L (13.4-35.0) % [place] % (Auto) 5.6 (0.0-7.3) % Eos % (Auto) 0.4 (0.0-4.3) % Baso % (Auto) 0.5 (0.0-1.8) % Lymph # 0.6 L (1.2-5.4) K/mm3 [place] # 0.5 (0.0-0.8) K/mm3 Eos # 0.0 (0.0-0.4) K/mm3 Baso # 0.0 (0.0-0.1) K/mm3 Seg Neutrophils % 86.0 H (40.0-70.0) % Seg Neutrophils # 7.3 (1.8-7.7) K/mm3 PT (12.2-14.9) Sec. INR (0.87-1.13) APTT (24.2-36.6) Sec. ABG pH (7.350-7.450) pH Units ABG pCO2 mm Hg ABG pO2 (80.0-90.0) mm Hg ABG HCO3 (20.0-26.0) mmol/L ABG O2 Saturation (95.0-99.0) % ABG O2 Content (0.0-44) ABG Base Excess (-2.0-3.0) mmol/L ABG Hemoglobin (12.0-16.0) gm/dl ABG Carboxyhemoglobin (0.0-5.0) % ABG Methemoglobin (0.0-1.5) % Oxyhemoglobin (95.0-99.0) % FiO2 % Sodium 131 L (137-145) mmol/L Potassium 9.2 H* (3.6-5.0) mmol/L Chloride 90.4 L (98-107) mmol/L Carbon Dioxide 16 L (22-30) mmol/L Anion Gap 34 mmol/L BUN 100 H (7-17) mg/dL Creatinine 11.0 H (0.7-1.2) mg/dL Estimated GFR 4 ml/min BUN/Creatinine Ratio 9 % Glucose 225 H (65-100) mg/dL POC Glucose 192 H (70-105) Calcium 9.1 (8.4-10.2) mg/dL Phosphorus (2.5-4.5) mg/dL Total Bilirubin 0.20 (0.1-1.2) mg/dL Direct Bilirubin < 0.2 (0-0.2) mg/dL Indirect Bilirubin 0.0 mg/dL ALT 14 (7-56) units/L Alkaline Phosphatase 143 H (35-129) units/L NT-Pro-B Natriuret Pep 11571 H (0-900) pg/mL Total Protein 7.3 (6.3-8.2) g/dL Albumin 4.1 (3.9-5) g/dL Albumin/Globulin Ratio 1.3 % Hepatitis A IgM Ab (NonReactive) Hep Bs Antigen (Negative) Hep B Core IgM Ab (NonReactive) Hepatitis C Antibody (NonReactive) 06/03/19 06/03/19 06/03/19 Range/Units 15:07 15:08 15:08 WBC (4.5-11.0) K/mm3 RBC (3.65-5.03) M/mm3 Hgb (10.1-14.3) gm/dl Hct (30.3-42.9) % MCV (79-97) fl MCH (28-32) pg MCHC (30-34) % RDW (13.2-15.2) % Plt Count (140-440) K/mm3 Lymph % (Auto) (13.4-35.0) % [place] % (Auto) (0.0-7.3) % Eos % (Auto) (0.0-4.3) % Baso % (Auto) (0.0-1.8) % Lymph # (1.2-5.4) K/mm3 [place] # (0.0-0.8) K/mm3 Eos # (0.0-0.4) K/mm3 Baso # (0.0-0.1) K/mm3 Seg Neutrophils % (40.0-70.0) % Seg Neutrophils # (1.8-7.7) K/mm3 PT 15.3 H (12.2-14.9) Sec. INR 1.19 H (0.87-1.13) APTT 40.5 H (24.2-36.6) Sec. ABG pH (7.350-7.450) pH Units ABG pCO2 mm Hg ABG pO2 (80.0-90.0) mm Hg ABG HCO3 (20.0-26.0) mmol/L ABG O2 Saturation (95.0-99.0) % ABG O2 Content (0.0-44) ABG Base Excess (-2.0-3.0) mmol/L ABG Hemoglobin (12.0-16.0) gm/dl ABG Carboxyhemoglobin (0.0-5.0) % ABG Methemoglobin (0.0-1.5) % Oxyhemoglobin (95.0-99.0) % FiO2 % Sodium (137-145) mmol/L Potassium (3.6-5.0) mmol/L Chloride (98-107) mmol/L Carbon Dioxide (22-30) mmol/L Anion Gap mmol/L BUN (7-17) mg/dL Creatinine (0.7-1.2) mg/dL Estimated GFR ml/min BUN/Creatinine Ratio % Glucose (65-100) mg/dL POC Glucose (70-105) Calcium (8.4-10.2) mg/dL Phosphorus 6.80 H (2.5-4.5) mg/dL Total Bilirubin (0.1-1.2) mg/dL Direct Bilirubin (0-0.2) mg/dL Indirect Bilirubin mg/dL ALT (7-56) units/L Alkaline Phosphatase (35-129) units/L NT-Pro-B Natriuret Pep (0-900) pg/mL Total Protein (6.3-8.2) g/dL Albumin (3.9-5) g/dL Albumin/Globulin Ratio % Hepatitis A IgM Ab Non-reactive (NonReactive) Hep Bs Antigen Non-reactive (Negative) Hep B Core IgM Ab Non-reactive (NonReactive) Hepatitis C Antibody Non-reactive (NonReactive) 06/03/19 06/03/19 06/03/19 Range/Units 16:00 18:37 22:56 WBC (4.5-11.0) K/mm3 RBC (3.65-5.03) M/mm3 Hgb (10.1-14.3) gm/dl Hct (30.3-42.9) % MCV (79-97) fl MCH (28-32) pg MCHC (30-34) % RDW (13.2-15.2) % Plt Count (140-440) K/mm3 Lymph % (Auto) (13.4-35.0) % [place] % (Auto) (0.0-7.3) % Eos % (Auto) (0.0-4.3) % Baso % (Auto) (0.0-1.8) % Lymph # (1.2-5.4) K/mm3 [place] # (0.0-0.8) K/mm3 Eos # (0.0-0.4) K/mm3 Baso # (0.0-0.1) K/mm3 Seg Neutrophils % (40.0-70.0) % Seg Neutrophils # (1.8-7.7) K/mm3 PT (12.2-14.9) Sec. INR (0.87-1.13) APTT (24.2-36.6) Sec. ABG pH 7.239 L (7.350-7.450) pH Units ABG pCO2 42.5 mm Hg ABG pO2 71.4 L (80.0-90.0) mm Hg ABG HCO3 17.8 L (20.0-26.0) mmol/L ABG O2 Saturation 90.7 L (95.0-99.0) % ABG O2 Content 12.9 (0.0-44) ABG Base Excess -9.1 L (-2.0-3.0) mmol/L ABG Hemoglobin 10.2 L (12.0-16.0) gm/dl ABG Carboxyhemoglobin 1.5 (0.0-5.0) % ABG Methemoglobin > 99.0 H (0.0-1.5) % Oxyhemoglobin 89.5 L (95.0-99.0) % FiO2 36 % Sodium (137-145) mmol/L Potassium (3.6-5.0) mmol/L Chloride (98-107) mmol/L Carbon Dioxide (22-30) mmol/L Anion Gap mmol/L BUN (7-17) mg/dL Creatinine (0.7-1.2) mg/dL Estimated GFR ml/min BUN/Creatinine Ratio % Glucose (65-100) mg/dL POC Glucose 214 H 133 H (70-105) Calcium (8.4-10.2) mg/dL Phosphorus (2.5-4.5) mg/dL Total Bilirubin (0.1-1.2) mg/dL Direct Bilirubin (0-0.2) mg/dL Indirect Bilirubin mg/dL ALT (7-56) units/L Alkaline Phosphatase (35-129) units/L NT-Pro-B Natriuret Pep (0-900) pg/mL Total Protein (6.3-8.2) g/dL Albumin (3.9-5) g/dL Albumin/Globulin Ratio % Hepatitis A IgM Ab (NonReactive) Hep Bs Antigen (Negative) Hep B Core IgM Ab (NonReactive) Hepatitis C Antibody (NonReactive) 06/04/19 06/04/19 06/04/19 Range/Units 06:18 08:17 08:17 WBC 7.8 (4.5-11.0) K/mm3 RBC 3.74 (3.65-5.03) M/mm3 Hgb 10.7 (10.1-14.3) gm/dl Hct 33.2 (30.3-42.9) % MCV 89 (79-97) fl MCH 29 (28-32) pg MCHC 32 (30-34) % RDW 18.0 H (13.2-15.2) % Plt Count 219 (140-440) K/mm3 Lymph % (Auto) 8.3 L (13.4-35.0) % [place] % (Auto) 8.1 H (0.0-7.3) % Eos % (Auto) 0.8 (0.0-4.3) % Baso % (Auto) 0.6 (0.0-1.8) % Lymph # 0.6 L (1.2-5.4) K/mm3 [place] # 0.6 (0.0-0.8) K/mm3 Eos # 0.1 (0.0-0.4) K/mm3 Baso # 0.0 (0.0-0.1) K/mm3 Seg Neutrophils % 82.2 H (40.0-70.0) % Seg Neutrophils # 6.4 (1.8-7.7) K/mm3 PT (12.2-14.9) Sec. INR (0.87-1.13) APTT (24.2-36.6) Sec. ABG pH (7.350-7.450) pH Units ABG pCO2 mm Hg ABG pO2 (80.0-90.0) mm Hg ABG HCO3 (20.0-26.0) mmol/L ABG O2 Saturation (95.0-99.0) % ABG O2 Content (0.0-44) ABG Base Excess (-2.0-3.0) mmol/L ABG Hemoglobin (12.0-16.0) gm/dl ABG Carboxyhemoglobin (0.0-5.0) % ABG Methemoglobin (0.0-1.5) % Oxyhemoglobin (95.0-99.0) % FiO2 % Sodium 142 D (137-145) mmol/L Potassium 5.7 H D (3.6-5.0) mmol/L Chloride 98.3 (98-107) mmol/L Carbon Dioxide 23 D (22-30) mmol/L Anion Gap 26 mmol/L BUN 46 H (7-17) mg/dL Creatinine 7.0 H (0.7-1.2) mg/dL Estimated GFR 7 ml/min BUN/Creatinine Ratio 7 % Glucose 74 (65-100) mg/dL POC Glucose 85 (70-105) Calcium 8.7 (8.4-10.2) mg/dL Phosphorus (2.5-4.5) mg/dL Total Bilirubin (0.1-1.2) mg/dL Direct Bilirubin (0-0.2) mg/dL Indirect Bilirubin mg/dL ALT (7-56) units/L Alkaline Phosphatase (35-129) units/L NT-Pro-B Natriuret Pep (0-900) pg/mL Total Protein (6.3-8.2) g/dL Albumin (3.9-5) g/dL Albumin/Globulin Ratio % Hepatitis A IgM Ab (NonReactive) Hep Bs Antigen (Negative) Hep B Core IgM Ab (NonReactive) Hepatitis C Antibody (NonReactive) 06/04/19 06/04/19 06/04/19 Range/Units 12:01 17:55 22:03 WBC (4.5-11.0) K/mm3 RBC (3.65-5.03) M/mm3 Hgb (10.1-14.3) gm/dl Hct (30.3-42.9) % MCV (79-97) fl MCH (28-32) pg MCHC (30-34) % RDW (13.2-15.2) % Plt Count (140-440) K/mm3 Lymph % (Auto) (13.4-35.0) % [place] % (Auto) (0.0-7.3) % Eos % (Auto) (0.0-4.3) % Baso % (Auto) (0.0-1.8) % Lymph # (1.2-5.4) K/mm3 [place] # (0.0-0.8) K/mm3 Eos # (0.0-0.4) K/mm3 Baso # (0.0-0.1) K/mm3 Seg Neutrophils % (40.0-70.0) % Seg Neutrophils # (1.8-7.7) K/mm3 PT (12.2-14.9) Sec. INR (0.87-1.13) APTT (24.2-36.6) Sec. ABG pH (7.350-7.450) pH Units ABG pCO2 mm Hg ABG pO2 (80.0-90.0) mm Hg ABG HCO3 (20.0-26.0) mmol/L ABG O2 Saturation (95.0-99.0) % ABG O2 Content (0.0-44) ABG Base Excess (-2.0-3.0) mmol/L ABG Hemoglobin (12.0-16.0) gm/dl ABG Carboxyhemoglobin (0.0-5.0) % ABG Methemoglobin (0.0-1.5) % Oxyhemoglobin (95.0-99.0) % FiO2 % Sodium (137-145) mmol/L Potassium (3.6-5.0) mmol/L Chloride (98-107) mmol/L Carbon Dioxide (22-30) mmol/L Anion Gap mmol/L BUN (7-17) mg/dL Creatinine (0.7-1.2) mg/dL Estimated GFR ml/min BUN/Creatinine Ratio % Glucose (65-100) mg/dL POC Glucose 162 H 297 H 251 H (70-105) Calcium (8.4-10.2) mg/dL Phosphorus (2.5-4.5) mg/dL Total Bilirubin (0.1-1.2) mg/dL Direct Bilirubin (0-0.2) mg/dL Indirect Bilirubin mg/dL ALT (7-56) units/L Alkaline Phosphatase (35-129) units/L NT-Pro-B Natriuret Pep (0-900) pg/mL Total Protein (6.3-8.2) g/dL Albumin (3.9-5) g/dL Albumin/Globulin Ratio % Hepatitis A IgM Ab (NonReactive) Hep Bs Antigen (Negative) Hep B Core IgM Ab (NonReactive) Hepatitis C Antibody (NonReactive) 06/05/19 Range/Units 08:11 WBC (4.5-11.0) K/mm3 RBC (3.65-5.03) M/mm3 Hgb (10.1-14.3) gm/dl Hct (30.3-42.9) % MCV (79-97) fl MCH (28-32) pg MCHC (30-34) % RDW (13.2-15.2) % Plt Count (140-440) K/mm3 Lymph % (Auto) (13.4-35.0) % [place] % (Auto) (0.0-7.3) % Eos % (Auto) (0.0-4.3) % Baso % (Auto) (0.0-1.8) % Lymph # (1.2-5.4) K/mm3 [place] # (0.0-0.8) K/mm3 Eos # (0.0-0.4) K/mm3 Baso # (0.0-0.1) K/mm3 Seg Neutrophils % (40.0-70.0) % Seg Neutrophils # (1.8-7.7) K/mm3 PT (12.2-14.9) Sec. INR (0.87-1.13) APTT (24.2-36.6) Sec. ABG pH (7.350-7.450) pH Units ABG pCO2 mm Hg ABG pO2 (80.0-90.0) mm Hg ABG HCO3 (20.0-26.0) mmol/L ABG O2 Saturation (95.0-99.0) % ABG O2 Content (0.0-44) ABG Base Excess (-2.0-3.0) mmol/L ABG Hemoglobin (12.0-16.0) gm/dl ABG Carboxyhemoglobin (0.0-5.0) % ABG Methemoglobin (0.0-1.5) % Oxyhemoglobin (95.0-99.0) % FiO2 % Sodium (137-145) mmol/L Potassium (3.6-5.0) mmol/L Chloride (98-107) mmol/L Carbon Dioxide (22-30) mmol/L Anion Gap mmol/L BUN (7-17) mg/dL Creatinine (0.7-1.2) mg/dL Estimated GFR ml/min BUN/Creatinine Ratio % Glucose (65-100) mg/dL POC Glucose 62 L (70-105) Calcium (8.4-10.2) mg/dL Phosphorus (2.5-4.5) mg/dL Total Bilirubin (0.1-1.2) mg/dL Direct Bilirubin (0-0.2) mg/dL Indirect Bilirubin mg/dL ALT (7-56) units/L Alkaline Phosphatase (35-129) units/L NT-Pro-B Natriuret Pep (0-900) pg/mL Total Protein (6.3-8.2) g/dL Albumin (3.9-5) g/dL Albumin/Globulin Ratio % Hepatitis A IgM Ab (NonReactive) Hep Bs Antigen (Negative) Hep B Core IgM Ab (NonReactive) Hepatitis C Antibody (NonReactive) Comprehensive Metabolic Panel 06/04/19 Range/Units 08:17 Sodium 142 D (137-145) mmol/L Potassium 5.7 H D (3.6-5.0) mmol/L Chloride 98.3 (98-107) mmol/L Carbon Dioxide 23 D (22-30) mmol/L BUN 46 H (7-17) mg/dL Creatinine 7.0 H (0.7-1.2) mg/dL Glucose 74 (65-100) mg/dL Calcium 8.7 (8.4-10.2) mg/dL
[2019-06-05] MEDS: cloNIDine 0.1 MG TAB PO SCH ×3 (09:18→21:00)
[2019-06-05] MEDS: NIFEdipine XL 90 MG TAB PO SCH ×2 (09:19→21:12)
[2019-06-05] MEDS ORDERED: traMADol 50 MG TAB PO PRN (17:48)
[2019-06-05] MEDS ORDERED: FLONASE INHALATION SCH (18:00)
[2019-06-05] MEDS ORDERED: GLIPIZIDE 20 MG PO SCH (18:00)
[2019-06-05 18:10] LABS: Hematocrit 34.3 % (30.3-42.9); Hemoglobin 10.9 gm/dl (10.1-14.3); Mean Corpuscular HGB Conc 32 % (30-34); Mean Corpuscular Volume 89 fl (79-97); Platelet Count 237 K/mm3 (140-440); Red Blood Count 3.86 M/mm3 (3.65-5.03); Red Cell Distribution Width 18.2 % (13.2-15.2)
[2019-06-05 18:21] LABS: Calcium 9.2 mg/dL (8.4-10.2)
--- NOTE | 2019-06-05 19:18 | Progress Note ---
Assessment and Plan Pt is alert and awake. No acute respiratory distress. She is resting on room air with an O2 saturation of 94%. BiPAP standby. She reports slight shortness of breath. She denies any chest pain or cough. She is afebrile and has no leukocytosis. CXR from 06/03/19 reported Diffuse interstitial and patchy airspace pulmonary edema is noted with bilateral pleural effusions No pneumothorax. Pt was admitted for emergent dialysis. She has no known allergies. She is a former smoker with a 30 year smoking history of a 1/4 pack per day, patient reports quitting in 2015. She denies any drug or alcohol use. 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 ABGs on 06/03/19 on 36% FiO2 ABG pH 7.239 pH Units (7.350-7.450) L 06/03/19 16:00 ABG pCO2 42.5 mm Hg 06/03/19 16:00 ABG pO2 71.4 mm Hg (80.0-90.0) L 06/03/19 16:00 ABG O2 Saturation 90.7 % (95.0-99.0) L 06/03/19 16:00 - Patient Problems (1) Acute hypoxemic respiratory failure Current Visit: Yes Status: Acute Plan to address problem: O2 2 litres via nasal canula. albuterol and atrovent aersolized treatments q6 hrs continue SQ heparin Recommend GI prophylaxis (2) DVT prophylaxis Current Visit: Yes Status: Acute Plan to address problem: Continue S/C Heparin (3) Diabetes Current Visit: Yes Status: Acute Plan to address problem: Management as per primary care (4) End-stage renal disease needing dialysis Current Visit: Yes Status: Acute Plan to address problem: Management as per nephrology (5) Pulmonary edema Current Visit: Yes Status: Acute Qualifiers: Chronicity: acute Qualified Code(s): J81.0 - Acute pulmonary edema Plan to address problem: CXR from 06/03/19 reported Diffuse interstitial and patchy airspace pulmonary edema is noted with bilateral pleural effusions No pneumothorax. Pt is on dialysis Repeat chest xray. (6) Metabolic acidosis Current Visit: Yes Status: Acute Plan to address problem: likely from the renal failure continue hemodialysis (7) Hypertension Current Visit: Yes Status: Acute Qualifiers: Hypertension type: essential hypertension Qualified Code(s): I10 - Essential (primary) hypertension Plan to address problem: management as per primary care. Subjective Date of service: 06/05/19 Principal diagnosis: ESRD Interval history: Pt is alert and awake. No acute respiratory distress. She is resting on room air with an O2 saturation of 94%. BiPAP standby. She reports slight shortness of [place] ath. She denies any chest pain or cough. She is afebrile and has no leukocytosis. CXR from 06/03/19 reported Diffuse interstitial and patchy airspace pulmonary edema is noted with bilateral pleural effusions No pneumothorax. Pt was admitted for emergent dialysis. She has no known allergies. She is a former smoker with a 30 year smoking history of a 1/4 pack per day, patient reports quitting in 2015. She denies any drug or alcohol use. 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 ABGs on 06/03/19 on 36% FiO2 ABG pH 7.239 pH Units (7.350-7.450) L 06/03/19 16:00 ABG pCO2 42.5 mm Hg 06/03/19 16:00 ABG pO2 71.4 mm Hg (80.0-90.0) L 06/03/19 16:00 ABG O2 Saturation 90.7 % (95.0-99.0) L 06/03/19 16:00 Objective Vital Signs - 12hr 06/05/19 06/05/19 06/05/19 09:08 09:17 09:18 Temperature Pulse Rate 80 Respiratory Rate Blood Pressure 196/80 196/80 O2 Sat by Pulse 94 93 Oximetry 06/05/19 06/05/19 06/05/19 09:19 10:00 10:15 Temperature 98.0 F Pulse Rate 75 75 Respiratory 18 Rate Blood Pressure 196/80 198/98 190/85 O2 Sat by Pulse Oximetry 06/05/19 06/05/19 06/05/19 10:30 10:45 11:00 Temperature Pulse Rate 69 66 66 Respiratory Rate Blood Pressure 180/89 179/81 162/79 O2 Sat by Pulse Oximetry 06/05/19 06/05/19 06/05/19 11:15 11:30 11:45 Temperature Pulse Rate 66 66 66 Respiratory Rate Blood Pressure 170/84 164/84 166/80 O2 Sat by Pulse Oximetry 0206/05/19 06/05/19 12:00 12:15 12:30 Temperature Pulse Rate 68 66 62 Respiratory Rate Blood Pressure 150/72 142/80 110/70 O2 Sat by Pulse Oximetry 06/05/19 06/05/19 06/05/19 12:45 13:00 13:15 Temperature 98.0 F Pulse Rate 66 68 63 Respiratory 18 Rate Blood Pressure 122/69 150/80 157/80 O2 Sat by Pulse Oximetry 06/05/19 06/05/19 06/05/19 14:36 15:02 15:03 Temperature 98.3 F Pulse Rate 74 Respiratory 20 Rate Blood Pressure 187/83 187/83 187/83 O2 Sat by Pulse 94 Oximetry Constitutional: no acute distress, alert Eyes: non-icteric ENT: oropharynx moist Neck: supple, no JVD Effort: normal Ascultation: Bilateral: diminished breath sounds, rales Cardiovascular: regular rate and rhythm Gastrointestinal: normoactive bowel sounds, soft, non-distended Integumentary: normal Extremities: no cyanosis Neurologic: normal mental status, non-focal exam Psychiatric: mood appropriate, affect normal CBC and BMP: 06/05/19 17:51 06/05/19 17:51 ABG, PT/INR, D-dimer: ABG ABG pH 7.239 pH Units (7.350-7.450) L 06/03/19 16:00 ABG pCO2 42.5 mm Hg 06/03/19 16:00 ABG pO2 71.4 mm Hg (80.0-90.0) L 06/03/19 16:00 ABG O2 Saturation 90.7 % (95.0-99.0) L 06/03/19 16:00 PT/INR, D-dimer PT 15.3 Sec. (12.2-14.9) H 06/03/19 15:08 INR 1.19 (0.87-1.13) H 06/03/19 15:08 Abnormal lab findings: Abnormal Labs 06/03/19 06/03/19 06/03/19 13:15 15:07 15:07 RBC 3.57 L RDW 18.1 H Lymph % (Auto) 7.5 L [place] % (Auto) Lymph # 0.6 L Seg Neutrophils % 86.0 H PT INR APTT ABG pH ABG pO2 ABG HCO3 ABG O2 Saturation ABG Base Excess ABG Hemoglobin ABG Methemoglobin Oxyhemoglobin Sodium 131 L Potassium 9.2 H* Chloride 90.4 L Carbon Dioxide 16 L BUN 100 H Creatinine 11.0 H Glucose 225 H POC Glucose 192 H Phosphorus Alkaline Phosphatase 143 H NT-Pro-B Natriuret Pep 96933 H 06/03/19 06/03/19 06/03/19 15:07 15:08 16:00 RBC RDW Lymph % (Auto) [place] % (Auto) Lymph # Seg Neutrophils % PT 15.3 H INR 1.19 H APTT 40.5 H ABG pH 7.239 L ABG pO2 71.4 L ABG HCO3 17.8 L ABG O2 Saturation 90.7 L ABG Base Excess -9.1 L ABG Hemoglobin 10.2 L ABG Methemoglobin > 99.0 H Oxyhemoglobin 89.5 L Sodium Potassium Chloride Carbon Dioxide BUN Creatinine Glucose POC Glucose Phosphorus 6.80 H Alkaline Phosphatase NT-Pro-B Natriuret Pep 06/03/19 06/03/19 06/04/19 18:37 22:56 08:17 RBC RDW 18.0 H Lymph % (Auto) 8.3 L [place] % (Auto) 8.1 H Lymph # 0.6 L Seg Neutrophils % 82.2 H PT INR APTT ABG pH ABG pO2 ABG HCO3 ABG O2 Saturation ABG Base Excess ABG Hemoglobin ABG Methemoglobin Oxyhemoglobin Sodium Potassium Chloride Carbon Dioxide BUN Creatinine Glucose POC Glucose 214 H 133 H Phosphorus Alkaline Phosphatase NT-Pro-B Natriuret Pep 06/04/19 06/04/19 06/04/19 08:17 12:01 17:55 RBC RDW Lymph % (Auto) [place] % (Auto) Lymph # Seg Neutrophils % PT INR APTT ABG pH ABG pO2 ABG HCO3 ABG O2 Saturation ABG Base Excess ABG Hemoglobin ABG Methemoglobin Oxyhemoglobin Sodium Potassium 5.7 H D Chloride Carbon Dioxide BUN 46 H Creatinine 7.0 H Glucose POC Glucose 162 H 297 H Phosphorus Alkaline Phosphatase NT-Pro-B Natriuret Pep 06/04/19 06/05/19 06/05/19 22:03 08:11 09:38 RBC RDW Lymph % (Auto) [place] % (Auto) Lymph # Seg Neutrophils % PT INR APTT ABG pH ABG pO2 ABG HCO3 ABG O2 Saturation ABG Base Excess ABG Hemoglobin ABG Methemoglobin Oxyhemoglobin Sodium Potassium Chloride Carbon Dioxide BUN Creatinine Glucose POC Glucose 251 H 62 L 150 H Phosphorus Alkaline Phosphatase NT-Pro-B Natriuret Pep 06/05/19 06/05/19 06/05/19 14:44 17:16 17:51 RBC RDW 18.2 H Lymph % (Auto) [place] % (Auto) Lymph # Seg Neutrophils % PT INR APTT ABG pH ABG pO2 ABG HCO3 ABG O2 Saturation ABG Base Excess ABG Hemoglobin ABG Methemoglobin Oxyhemoglobin Sodium Potassium Chloride Carbon Dioxide BUN Creatinine Glucose POC Glucose 172 H 235 H Phosphorus Alkaline Phosphatase NT-Pro-B Natriuret Pep 06/05/19 17:51 RBC RDW Lymph % (Auto) [place] % (Auto) Lymph # Seg Neutrophils % PT INR APTT ABG pH ABG pO2 ABG HCO3 ABG O2 Saturation ABG Base Excess ABG Hemoglobin ABG Methemoglobin Oxyhemoglobin Sodium 134 L D Potassium Chloride 90.9 L Carbon Dioxide BUN 33 H Creatinine 5.4 H Glucose 314 H POC Glucose Phosphorus Alkaline Phosphatase NT-Pro-B Natriuret Pep Chest x-ray: report reviewed (Diffuse interstitial and patchy airspace pulmonary edema is noted with bilateral ), image reviewed
[2019-06-05] MEDS ORDERED: SODIUM CHLORIDE*PRIMING MACHINE ONLY FOR DIALYSIS MC ONE (19:27)
[2019-06-05] MEDS: FLUTICASONE PROPIONATE NASAL SPRAY 16 GM NS SCH (20:58)
[2019-06-05] MEDS: NYSTATIN CREAM 15 GM TUBE TP SCH (20:59)
[2019-06-05] MEDS: TORSEMIDE 100 MG TAB PO SCH (21:02)
[2019-06-05] MEDS: INSULIN GLARGINE 100 UNITS/ML SUB-Q SCH (21:42)
[2019-06-05] MEDS: INSULIN LISPRO 100 UNIT/ML SUB-Q SCH (21:43)
[2019-06-06] MEDS: hydrALAZINE 100 MG TAB PO SCH ×2 (05:58→13:09)
[2019-06-06] MEDS: HEPARIN 5,000 UNIT/1 ML VIAL SUB-Q SCH ×2 (05:59→18:04)
[2019-06-06] MEDS: INSULIN LISPRO 100 UNIT/ML SUB-Q SCH ×3 (08:26→18:04)
--- NOTE | 2019-06-06 08:50 | Progress Note ---
Assessment and Plan Assessment and plan: --Acute hypoxic respiratory failure; --Acute pulmonary edema; --Fluid overload --End-stage renal disease on hemodialysis --Acute metabolic encephalopathy --Acute metabolic acidosis --Hypertension; --Type 2 diabetes mellitus --Medical noncompliance Hospitalist Physical - Constitutional Vitals: Temp Pulse Resp BP Pulse Ox 98.9 F 78 16 155/53 95 06/06/19 04:35 06/06/19 04:35 06/06/19 04:35 06/06/19 04:35 06/06/19 07:57 General appearance: Present: mild distress, obese Results - Labs CBC & Chem 7: 06/05/19 17:51 06/05/19 17:51 Labs: Laboratory Last Values WBC 8.0 K/mm3 (4.5-11.0) 06/05/19 17:51 RBC 3.86 M/mm3 (3.65-5.03) 06/05/19 17:51 Hgb 10.9 gm/dl (10.1-14.3) 06/05/19 17:51 Hct 34.3 % (30.3-42.9) 06/05/19 17:51 MCV 89 fl (79-97) 06/05/19 17:51 MCH 28 pg (28-32) 06/05/19 17:51 MCHC 32 % (30-34) 06/05/19 17:51 RDW 18.2 % (13.2-15.2) H 06/05/19 17:51 Plt Count 237 K/mm3 (140-440) 06/05/19 17:51 Lymph % (Auto) 8.3 % (13.4-35.0) L 06/04/19 08:17 [place] % (Auto) 8.1 % (0.0-7.3) H 06/04/19 08:17 Eos % (Auto) 0.8 % (0.0-4.3) 06/04/19 08:17 Baso % (Auto) 0.6 % (0.0-1.8) 06/04/19 08:17 Lymph # 0.6 K/mm3 (1.2-5.4) L 06/04/19 08:17 [place] # 0.6 K/mm3 (0.0-0.8) 06/04/19 08:17 Eos # 0.1 K/mm3 (0.0-0.4) 06/04/19 08:17 Baso # 0.0 K/mm3 (0.0-0.1) 06/04/19 08:17 Seg Neutrophils % 82.2 % (40.0-70.0) H 06/04/19 08:17 Seg Neutrophils # 6.4 K/mm3 (1.8-7.7) 06/04/19 08:17 PT 15.3 Sec. (12.2-14.9) H 06/03/19 15:08 INR 1.19 (0.87-1.13) H 06/03/19 15:08 APTT 40.5 Sec. (24.2-36.6) H 06/03/19 15:08 ABG pH 7.239 pH Units (7.350-7.450) L 06/03/19 16:00 ABG pCO2 42.5 mm Hg 06/03/19 16:00 ABG pO2 71.4 mm Hg (80.0-90.0) L 06/03/19 16:00 ABG HCO3 17.8 mmol/L (20.0-26.0) L 06/03/19 16:00 ABG O2 Saturation 90.7 % (95.0-99.0) L 06/03/19 16:00 ABG O2 Content 12.9 (0.0-44) 06/03/19 16:00 ABG Base Excess -9.1 mmol/L (-2.0-3.0) L 06/03/19 16:00 ABG Hemoglobin 10.2 gm/dl (12.0-16.0) L 06/03/19 16:00 ABG Carboxyhemoglobin 1.5 % (0.0-5.0) 06/03/19 16:00 ABG Methemoglobin > 99.0 % (0.0-1.5) H 06/03/19 16:00 Oxyhemoglobin 89.5 % (95.0-99.0) L 06/03/19 16:00 FiO2 36 % 06/03/19 16:00 Sodium 134 mmol/L (137-145) L D 06/05/19 17:51 Potassium 4.7 mmol/L (3.6-5.0) 06/05/19 17:51 Chloride 90.9 mmol/L (98-107) L 06/05/19 17:51 Carbon Dioxide 23 mmol/L (22-30) 06/05/19 17:51 Anion Gap 25 mmol/L 06/05/19 17:51 BUN 33 mg/dL (7-17) H 06/05/19 17:51 Creatinine 5.4 mg/dL (0.7-1.2) H 06/05/19 17:51 Estimated GFR 10 ml/min 06/05/19 17:51 BUN/Creatinine Ratio 6 % 06/05/19 17:51 Glucose 314 mg/dL (65-100) H 06/05/19 17:51 POC Glucose 248 (70-105) H 06/06/19 07:44 Calcium 9.2 mg/dL (8.4-10.2) 06/05/19 17:51 Phosphorus 6.80 mg/dL (2.5-4.5) H 06/03/19 15:07 Total Bilirubin 0.20 mg/dL (0.1-1.2) 06/03/19 15:07 Direct Bilirubin < 0.2 mg/dL (0-0.2) 06/03/19 15:07 Indirect Bilirubin 0.0 mg/dL 06/03/19 15:07 AST 16 units/L (5-40) 06/03/19 15:07 ALT 14 units/L (7-56) 06/03/19 15:07 Alkaline Phosphatase 143 units/L (35-129) H 06/03/19 15:07 NT-Pro-B Natriuret Pep 33800 pg/mL (0-900) H 06/03/19 15:07 Total Protein 7.3 g/dL (6.3-8.2) 06/03/19 15:07 Albumin 4.1 g/dL (3.9-5) 06/03/19 15:07 Albumin/Globulin Ratio 1.3 % 06/03/19 15:07 Hepatitis A IgM Ab Non-reactive (NonReactive) 06/03/19 15:08 Hep Bs Antigen Non-reactive (Negative) 06/03/19 15:08 Hep B Core IgM Ab Non-reactive (NonReactive) 06/03/19 15:08 Hepatitis C Antibody Non-reactive (NonReactive) 06/03/19 15:08 Active Medications - Current Medications Current Medications: Generic Name Dose Route Start Last Admin Trade Name Freq PRN Reason Stop Dose Admin Atorvastatin Calcium 40 mg 06/03/19 22:00 06/05/19 21:01 Lipitor PO 40 mg QHS JOÃO Administration Bisacodyl 10 mg 06/06/19 00:12 06/06/19 00:34 Dulcolax PO 10 mg QDAY PRN Administration Constipation Clonidine HCl 0.3 mg 06/05/19 08:00 06/05/19 21:00 Catapres PO 0.3 mg TID JOÃO Administration Dextrose 50 ml 06/05/19 08:42 D50w (25gm) Syringe IV Q30MIN PRN Hypoglycemia Protocol Fluticasone Propionate 100 mcg 06/05/19 20:00 06/05/19 20:58 Flonase NS 100 mcg QDAY JOÃO Administration Glipizide 20 mg 06/06/19 08:00 06/06/19 08:34 Glucotrol Xl PO 20 mg QDDIAB JOÃO Administration Heparin Sodium (Porcine) 5,000 unit 06/04/19 18:00 06/06/19 05:59 Heparin SUB-Q 5,000 unit Q12H JOÃO Administration Hydralazine HCl 100 mg 06/04/19 00:00 06/06/19 05:58 Apresoline PO 100 mg Q8HR JOÃO Administration Hydralazine HCl 10 mg 06/04/19 06:35 06/04/19 11:47 Apresoline IV 10 mg Q4H PRN Administration Hypertension Insulin Glargine 25 units 06/04/19 22:00 06/05/19 21:42 Lantus SUB-Q 25 units QHS JOÃO Administration Insulin Human Lispro 0 unit 06/05/19 22:00 06/06/19 08:26 Humalog SUB-Q 4 unit ACHS JOÃO Administration Protocol Labetalol HCl 100 mg 06/05/19 08:00 06/06/19 05:59 Labetalol PO 100 mg Q8HR JOÃO Administration Nifedipine 90 mg 06/05/19 08:00 06/05/19 21:12 Procardia Xl PO 90 mg BID JOÃO Administration Nystatin 1 applic 06/05/19 22:00 06/05/19 20:59 Mycostatin TP 1 applic BID JOÃO Administration Torsemide 100 mg 06/05/19 20:00 06/05/19 21:02 Demadex PO 100 mg DAILY JOÃO Administration Tramadol HCl 50 mg 06/05/19 17:48 06/05/19 21:01 Ultram PO 50 mg Q6H PRN Administration Pain, Moderate (4-6)
[2019-06-06] MEDS: cloNIDine 0.1 MG TAB PO SCH ×2 (09:34→13:09)
[2019-06-06] MEDS: NIFEdipine XL 90 MG TAB PO SCH (09:35)
[2019-06-06] MEDS: FLUTICASONE PROPIONATE NASAL SPRAY 16 GM NS SCH (09:35)
[2019-06-06] MEDS: TORSEMIDE 100 MG TAB PO SCH (09:35)
[2019-06-06] MEDS: NYSTATIN CREAM 15 GM TUBE TP SCH (09:36)
--- NOTE | 2019-06-06 10:28 | Progress Note ---
Assessment and Plan Sinus bradycardia and period of sinus arrest in setting of severe hyperkalemia. now resolved. Volume overload s/t missed dialysis ESRD on HD Htn DM Noncompliance LHC at [place] in 12/2017. revealed no significant CAD An echo done 12/2017 at [place] reports normal left ventricular systolic function EF 60-65%. Recommend: We will repeat an echo for LVEF reassessment. Subjective Date of service: 06/06/19 Principal diagnosis: ESRD Interval history: Patient appears comfortable. She has no cardiac complaints. Stable sinus rhythm on telemetry. Objective Vital Signs Temp Pulse Pulse Resp BP Pulse Ox 06/06/19 09:34 150/62 06/06/19 07:57 95 06/06/19 04:35 98.9 F 78 16 155/53 95 06/06/19 00:38 68 18 181/66 96 06/05/19 22:35 98.7 F 20 220/78 06/05/19 22:01 18 06/05/19 21:01 18 06/05/19 20:57 99.3 F 74 20 240/79 100 06/05/19 20:00 75 20 06/05/19 15:03 187/83 06/05/19 15:02 187/83 06/05/19 14:36 98.3 F 74 20 187/83 94 06/05/19 13:15 98.0 F 63 18 157/80 06/05/19 13:00 68 150/80 06/05/19 12:45 66 122/69 06/05/19 12:30 62 110/70 06/05/19 12:15 66 142/80 06/05/19 12:00 68 150/72 06/05/19 11:45 66 166/80 06/05/19 11:30 66 164/84 06/05/19 11:15 66 170/84 06/05/19 11:00 66 162/79 06/05/19 10:45 66 179/81 06/05/19 10:30 69 180/89 - Physical Examination General: No Apparent Distress HEENT: Positive: PERRL Neck: Positive: neck supple Cardiac: Positive: Reg Rate and Rhythm Lungs: Positive: Decreased Breath Sounds Neuro: Positive: Grossly Intact Abdomen: Positive: Soft, Active Bowel Sounds Extremities: Absent: edema - Labs and Meds CBC 06/05/19 Range/Units 17:51 WBC 8.0 (4.5-11.0) K/mm3 RBC 3.86 (3.65-5.03) M/mm3 Hgb 10.9 (10.1-14.3) gm/dl Hct 34.3 (30.3-42.9) % Plt Count 237 (140-440) K/mm3 Comprehensive Metabolic Panel 06/05/19 Range/Units 17:51 Sodium 134 L D (137-145) mmol/L Potassium 4.7 (3.6-5.0) mmol/L Chloride 90.9 L (98-107) mmol/L Carbon Dioxide 23 (22-30) mmol/L BUN 33 H (7-17) mg/dL Creatinine 5.4 H (0.7-1.2) mg/dL Glucose 314 H (65-100) mg/dL Calcium 9.2 (8.4-10.2) mg/dL
--- NOTE | 2019-06-06 12:46 | Progress Note ---
Assessment and Plan Pt is alert and awake. She is sitting up eating lunch. No acute respiratory distress. She is resting on room air with an O2 saturation of 93%. BiPAP standby. She denies any shortness of breath, chest pain or cough. She is afebrile and has no leukocytosis. CXR from 06/03/19 reported Diffuse interstitial and patchy airspace pulmonary edema is noted with bilateral pleural effusions No pneumothorax. Pt was admitted for emergent dialysis. She has no known allergies. She is a former smoker with a 30 year smoking history of a 1/4 pack per day, patient reports quitting in 2015. She denies any drug or alcohol use. 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 ABGs on 06/03/19 on 36% FiO2 ABG pH 7.239 pH Units (7.350-7.450) L 06/03/19 16:00 ABG pCO2 42.5 mm Hg 06/03/19 16:00 ABG pO2 71.4 mm Hg (80.0-90.0) L 06/03/19 16:00 ABG O2 Saturation 90.7 % (95.0-99.0) L 06/03/19 16:00 - Patient Problems (1) Acute hypoxemic respiratory failure Current Visit: Yes Status: Acute Plan to address problem: O2 2 litres via nasal canula. albuterol and atrovent aersolized treatments q6 hrs continue SQ heparin Recommend GI prophylaxis (2) DVT prophylaxis Current Visit: Yes Status: Acute Plan to address problem: Continue SQ Heparin (3) Diabetes Current Visit: Yes Status: Acute Plan to address problem: Management as per primary care (4) End-stage renal disease needing dialysis Current Visit: Yes Status: Acute Plan to address problem: Management as per nephrology (5) Pulmonary edema Current Visit: Yes Status: Acute Qualifiers: Chronicity: acute Qualified Code(s): J81.0 - Acute pulmonary edema Plan to address problem: CXR from 06/03/19 reported Diffuse interstitial and patchy airspace pulmonary edema is noted with bilateral pleural effusions No pneumothorax. Pt is on dialysis Repeat chest xray. (6) Metabolic acidosis Current Visit: Yes Status: Acute Plan to address problem: likely from the renal failure continue hemodialysis (7) Hypertension Current Visit: Yes Status: Acute Qualifiers: Hypertension type: essential hypertension Qualified Code(s): I10 - Essential (primary) hypertension Plan to address problem: management as per primary care. Subjective Date of service: 06/06/19 Principal diagnosis: ESRD Interval history: Pt is alert and awake. She is sitting up eating lunch. No acute respiratory distress. She is resting on room air with an O2 saturation of 93%. BiPAP s [place]. She denies any shortness of breath, chest pain or cough. She is afebrile and has no leukocytosis. CXR from 06/03/19 reported Diffuse interstitial and patchy airspace pulmonary edema is noted with bilateral pleural effusions No pneumothorax. Pt was admitted for emergent dialysis. She has no known allergies. She is a former smoker with a 30 year smoking history of a 1/4 pack per day, patient reports quitting in 2014. She denies any drug or alcohol use. 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 ABGs on 06/03/19 on 36% FiO2 ABG pH 7.239 pH Units (7.350-7.450) L 06/03/19 16:00 ABG pCO2 42.5 mm Hg 06/03/19 16:00 ABG pO2 71.4 mm Hg (80.0-90.0) L 06/03/19 16:00 ABG O2 Saturation 90.7 % (95.0-99.0) L 06/03/19 16:00 Objective Vital Signs - 12hr 06/06/19 06/06/19 06/06/19 04:35 07:57 09:34 Temperature 98.9 F Pulse Rate 78 Respiratory 16 Rate Blood Pressure 155/53 150/62 O2 Sat by Pulse 95 95 Oximetry Constitutional: no acute distress, alert Eyes: non-icteric ENT: oropharynx moist Neck: supple, no JVD Effort: normal Ascultation: Bilateral: diminished breath sounds, other (prolonged expiratory phase) Cardiovascular: regular rate and rhythm Gastrointestinal: normoactive bowel sounds, soft, non-distended Integumentary: normal Extremities: no cyanosis Neurologic: normal mental status, non-focal exam Psychiatric: mood appropriate, affect normal CBC and BMP: 06/05/19 17:51 06/05/19 17:51 ABG, PT/INR, D-dimer: ABG ABG pH 7.239 pH Units (7.350-7.450) L 06/03/19 16:00 ABG pCO2 42.5 mm Hg 06/03/19 16:00 ABG pO2 71.4 mm Hg (80.0-90.0) L 06/03/19 16:00 ABG O2 Saturation 90.7 % (95.0-99.0) L 06/03/19 16:00 PT/INR, D-dimer PT 15.3 Sec. (12.2-14.9) H 06/03/19 15:08 INR 1.19 (0.87-1.13) H 06/03/19 15:08 Abnormal lab findings: Abnormal Labs 06/03/19 06/03/19 06/03/19 13:15 15:07 15:07 RBC 3.57 L RDW 18.1 H Lymph % (Auto) 7.5 L [place] % (Auto) Lymph # 0.6 L Seg Neutrophils % 86.0 H PT INR APTT ABG pH ABG pO2 ABG HCO3 ABG O2 Saturation ABG Base Excess ABG Hemoglobin ABG Methemoglobin Oxyhemoglobin Sodium 131 L Potassium 9.2 H* Chloride 90.4 L Carbon Dioxide 16 L BUN 100 H Creatinine 11.0 H Glucose 225 H POC Glucose 192 H Phosphorus Alkaline Phosphatase 143 H NT-Pro-B Natriuret Pep 17404 H 06/03/19 06/03/19 06/03/19 15:07 15:08 16:00 RBC RDW Lymph % (Auto) [place] % (Auto) Lymph # Seg Neutrophils % PT 15.3 H INR 1.19 H APTT 40.5 H ABG pH 7.239 L ABG pO2 71.4 L ABG HCO3 17.8 L ABG O2 Saturation 90.7 L ABG Base Excess -9.1 L ABG Hemoglobin 10.2 L ABG Methemoglobin > 99.0 H Oxyhemoglobin 89.5 L Sodium Potassium Chloride Carbon Dioxide BUN Creatinine Glucose POC Glucose Phosphorus 6.80 H Alkaline Phosphatase NT-Pro-B Natriuret Pep 06/03/19 06/03/19 06/04/19 18:37 22:56 08:17 RBC RDW 18.0 H Lymph % (Auto) 8.3 L [place] % (Auto) 8.1 H Lymph # 0.6 L Seg Neutrophils % 82.2 H PT INR APTT ABG pH ABG pO2 ABG HCO3 ABG O2 Saturation ABG Base Excess ABG Hemoglobin ABG Methemoglobin Oxyhemoglobin Sodium Potassium Chloride Carbon Dioxide BUN Creatinine Glucose POC Glucose 214 H 133 H Phosphorus Alkaline Phosphatase NT-Pro-B Natriuret Pep 06/04/19 06/04/19 06/04/19 08:17 12:01 17:55 RBC RDW Lymph % (Auto) [place] % (Auto) Lymph # Seg Neutrophils % PT INR APTT ABG pH ABG pO2 ABG HCO3 ABG O2 Saturation ABG Base Excess ABG Hemoglobin ABG Methemoglobin Oxyhemoglobin Sodium Potassium 5.7 H D Chloride Carbon Dioxide BUN 46 H Creatinine 7.0 H Glucose POC Glucose 162 H 297 H Phosphorus Alkaline Phosphatase NT-Pro-B Natriuret Pep 06/04/19 06/05/19 06/05/19 22:03 08:11 09:38 RBC RDW Lymph % (Auto) [place] % (Auto) Lymph # Seg Neutrophils % PT INR APTT ABG pH ABG pO2 ABG HCO3 ABG O2 Saturation ABG Base Excess ABG Hemoglobin ABG Methemoglobin Oxyhemoglobin Sodium Potassium Chloride Carbon Dioxide BUN Creatinine Glucose POC Glucose 251 H 62 L 150 H Phosphorus Alkaline Phosphatase NT-Pro-B Natriuret Pep 06/05/19 06/05/19 06/05/19 14:44 17:16 17:51 RBC RDW 18.2 H Lymph % (Auto) [place] % (Auto) Lymph # Seg Neutrophils % PT INR APTT ABG pH ABG pO2 ABG HCO3 ABG O2 Saturation ABG Base Excess ABG Hemoglobin ABG Methemoglobin Oxyhemoglobin Sodium Potassium Chloride Carbon Dioxide BUN Creatinine Glucose POC Glucose 172 H 235 H Phosphorus Alkaline Phosphatase NT-Pro-B Natriuret Pep 06/05/19 06/05/19 06/05/19 17:51 21:32 22:45 RBC RDW Lymph % (Auto) [place] % (Auto) Lymph # Seg Neutrophils % PT INR APTT ABG pH ABG pO2 ABG HCO3 ABG O2 Saturation ABG Base Excess ABG Hemoglobin ABG Methemoglobin Oxyhemoglobin Sodium 134 L D Potassium Chloride 90.9 L Carbon Dioxide BUN 33 H Creatinine 5.4 H Glucose 314 H POC Glucose 257 H 202 H Phosphorus Alkaline Phosphatase NT-Pro-B Natriuret Pep 06/06/19 06/06/19 07:44 11:18 RBC RDW Lymph % (Auto) [place] % (Auto) Lymph # Seg Neutrophils % PT INR APTT ABG pH ABG pO2 ABG HCO3 ABG O2 Saturation ABG Base Excess ABG Hemoglobin ABG Methemoglobin Oxyhemoglobin Sodium Potassium Chloride Carbon Dioxide BUN Creatinine Glucose POC Glucose 248 H 207 H Phosphorus Alkaline Phosphatase NT-Pro-B Natriuret Pep
[2019-06-06 12:57] VITALS: BP 174/72
--- NOTE | 2019-06-06 13:40 | Progress Note ---
Assessment and Plan Hypoxic respiratory failure Hyperkalemia ESRD on HD DM type II HTN no indication for HD today will assess dialysis needs daily renally dose meds strict I&O daily weight Lj Mello MD [phone] Subjective Date of service: 06/06/19 Principal diagnosis: ESRD Interval history: tolerated HD yesterday Objective - Vital Signs Vital signs: Vital Signs - 12hr 06/06/19 06/06/19 06/06/19 04:35 07:57 09:34 Temperature 98.9 F Pulse Rate 78 Respiratory 16 Rate Blood Pressure 155/53 150/62 O2 Sat by Pulse 95 95 Oximetry 06/06/19 06/06/19 06/06/19 11:51 13:08 13:09 Temperature 98.7 F Pulse Rate 70 Respiratory 18 Rate Blood Pressure 174/72 174/72 174/72 O2 Sat by Pulse 93 Oximetry - General Appearance General appearance: well-developed, well-nourished EENT: ATNC, PERRL, mucous membranes moist Neck: no JVD, no carotid bruit Respiratory: Present: Clear to Ascultation. Absent: Rales, Ronchi Cardiology: regular, S1S2 Gastrointestinal: normoactive bowel sounds Integumentary: no rash, warm and dry Neurologic: no focal deficit, no asterixis, alert and oriented x3 Musculoskeletal: other (trace pitting edema in BLE) Psychiatric: cooperative - Lab 06/05/19 17:51 06/05/19 17:51 Most recent lab results ABG pH 7.239 pH Units (7.350-7.450) L 06/03/19 16:00 ABG pCO2 42.5 mm Hg 06/03/19 16:00 ABG pO2 71.4 mm Hg (80.0-90.0) L 06/03/19 16:00 ABG HCO3 17.8 mmol/L (20.0-26.0) L 06/03/19 16:00 ABG O2 Saturation 90.7 % (95.0-99.0) L 06/03/19 16:00 Calcium 9.2 mg/dL (8.4-10.2) 06/05/19 17:51 Phosphorus 6.80 mg/dL (2.5-4.5) H 06/03/19 15:07 Medications & Allergies - Medications Allergies/Adverse Reactions: Allergies No Known Allergies Allergy (Unverified 01/02/18 13:47) Home Medications: Home Medications Medication Instructions Recorded Confirmed Last Taken Type Atorvastatin [Lipitor] 40 mg PO QHS 01/03/18 06/03/19 Unknown History Insulin Glargine [Lantus VIAL] 25 units SUB-Q QHS #1 units 01/05/18 06/03/19 Unknown Rx NIFEdipine XL [Procardia Xl] 60 mg PO BID 30 Days #60 tablet 01/05/18 06/03/19 Unknown Rx carvediloL [Coreg] 12.5 mg PO BID 30 Days #60 tablet 01/05/18 06/05/19 Unknown Rx hydrALAZINE [Apresoline TAB] 100 mg PO TID 30 Days #90 tab 01/05/18 06/03/19 Unknown Rx Torsemide [Demadex] 100 mg PO DAILY 06/03/19 06/03/19 Unknown History cloNIDine [Catapres] 0.3 mg PO TID 06/03/19 06/03/19 Unknown History traMADoL [Ultram 50 MG tab] 50 mg PO Q6H PRN 06/03/19 06/03/19 Unknown History Flonase 1 spray INHALATION DAILY 06/05/19 06/05/19 06/03/19 History NovoLOG Mix 70/30 VIAL 7 units SC AC 06/05/19 06/05/19 06/03/19 History glipiZIDE 20 mg PO DAILY 06/05/19 06/05/19 06/03/19 History Active Medications: Generic Name Dose Route Start Last Admin Trade Name Freq PRN Reason Stop Dose Admin Atorvastatin Calcium 40 mg 06/03/19 22:00 06/05/19 21:01 Lipitor PO 40 mg QHS JOÃO Administration Bisacodyl 10 mg 06/06/19 00:12 06/06/19 00:34 Dulcolax PO 10 mg QDAY PRN Administration Constipation Clonidine HCl 0.3 mg 06/05/19 08:00 06/06/19 13:09 Catapres PO 0.3 mg TID JOÃO Administration Dextrose 50 ml 06/05/19 08:42 D50w (25gm) Syringe IV Q30MIN PRN Hypoglycemia Protocol Fluticasone Propionate 100 mcg 06/05/19 20:00 06/06/19 09:35 Flonase NS 100 mcg QDAY JOÃO Administration Glipizide 20 mg 06/06/19 08:00 06/06/19 08:34 Glucotrol Xl PO 20 mg QDDIAB JOÃO Administration Heparin Sodium (Porcine) 5,000 unit 06/04/19 18:00 06/06/19 05:59 Heparin SUB-Q 5,000 unit Q12H JOÃO Administration Hydralazine HCl 100 mg 06/04/19 00:00 06/06/19 13:09 Apresoline PO 100 mg Q8HR JOÃO Administration Hydralazine HCl 10 mg 06/04/19 06:35 06/04/19 11:47 Apresoline IV 10 mg Q4H PRN Administration Hypertension Insulin Glargine 25 units 06/04/19 22:00 06/05/19 21:42 Lantus SUB-Q 25 units QHS JOÃO Administration Insulin Human Lispro 0 unit 06/05/19 22:00 06/06/19 13:01 Humalog SUB-Q 4 unit ACHS JOÃO Administration Protocol Labetalol HCl 100 mg 06/05/19 08:00 06/06/19 13:08 Labetalol PO 100 mg Q8HR JOÃO Administration Nifedipine 90 mg 06/05/19 08:00 06/06/19 09:35 Procardia Xl PO 90 mg BID JOÃO Administration Nystatin 1 applic 06/05/19 22:00 06/06/19 09:36 Mycostatin TP 1 applic BID JOÃO Administration Torsemide 100 mg 06/05/19 20:00 06/06/19 09:35 Demadex PO 100 mg DAILY JOÃO Administration Tramadol HCl 50 mg 06/05/19 17:48 06/05/19 21:01 Ultram PO 50 mg Q6H PRN Administration Pain, Moderate (4-6)
--- NOTE | 2019-06-06 16:27 | Discharge Summary ---
Providers - Providers Date of Admission: 06/03/19 13:37 Date of discharge: 06/06/19 Attending physician: KIRILL CHATTERJEE 06/03/19 13:12 Consult to Physician [CONS] Stat Comment: DR MARCIO VALDEZ W/DR CABRERA @1311 Consulting Provider: ERICK CABRERA Physician Instructions: Reason For Exam: needs HD 06/03/19 14:49 Consult to Physician [CONS] Stat Comment: Consulting Provider: JUNITO WALTERS Physician Instructions: Reason For Exam: Pulmonary edema 06/03/19 15:38 Consult to Physician [CONS] Routine Comment: Consulting Provider: THANG APONTE Physician Instructions: Reason For Exam: bradycardia 06/03/19 19:34 Consult to Wound/ET Nurse [CONS] Urgent Reason For Exam: wound eval rt heel DTI Primary care physician: [employer] Hospitalization Condition: Stable Disposition: DC-01 TO HOME OR SELFCARE Time spent for discharge: 32 min Core Measure Documentation - Palliative Care Palliative Care/ Comfort Measures: Not Applicable - Core Measures Any of the following diagnoses?: none Exam - Constitutional Vitals: Temp Pulse Resp BP Pulse Ox 98.7 F 70 18 174/72 93 06/06/19 11:51 06/06/19 11:51 06/06/19 11:51 06/06/19 13:09 06/06/19 11:51 General appearance: Present: no acute distress, well-nourished, obese - EENT Eyes: Present: PERRL, EOM intact - Neck Neck: Present: supple, normal ROM - Respiratory Respiratory effort: normal Respiratory: bilateral: diminished, negative: rales, rhonchi, wheezing - Cardiovascular Rhythm: regular Heart Sounds: Present: S1 & S2 - Extremities Extremities: no ischemia, No edema - Abdominal General gastrointestinal: Present: soft, non-tender, non-distended, normal bowel sounds - Integumentary Integumentary: Present: clear, warm - Musculoskeletal Musculoskeletal: strength equal bilaterally, generalized weakness - Psychiatric Psychiatric: appropriate mood/affect, cooperative - Neurologic Neurologic: moves all extremities Plan Activity: advance as tolerated, fall precautions Diet: diabetic Special Instructions: smoking cessation Additional Instructions: Follow renal/hemodialysis per schedule. Advised to comply with medications, diet, hemodialysis, follow-up visits. If you have severe shortness of breath or chest pain, contact MD. Or go to emergency room Follow up with: SHANTE MENDOZA MD [Primary Care Provider] - 3-5 Days PAU LINDA MD [Staff Physician] - 7 Days ERICK CABRERA MD [Staff Physician] - 7 Days ABRAHAN LEWIS MD [Staff Physician] - 7 Days Prescriptions: glipiZIDE XL [Glucotrol Xl] 20 mg PO QDDIAB #30 tablet Lispro Insulin [HumaLOG] 8 unit SUB-Q ACHS #2 vial labetaloL [Labetalol 100mg TAB] 100 mg PO Q8HR #60 tablet Nystatin Cream [Mycostatin Cream] 1 applic TP BID #1 tube
== END 2019-06-06 18:30 | disposition home or self-care (01) | DRG 189 ==
LOC: ED 12:36 → CC1 13:37 → 3A 06-04 15:56
PROVIDERS: ADMIT Internal Medicine; ATTEND Internal Medicine
PROC: 4A033R1 Measurement of Arterial Saturation, Peripheral, Percutaneous Approach (ICD-10-PCS; principal; 2019-06-03)
PROC: 5A1D70Z Performance of Urinary Filtration, Intermittent, Less than 6 Hours Per Day (ICD-10-PCS; 2019-06-03)
PROC: 5A09357 Assistance with Respiratory Ventilation, Less than 24 Consecutive Hours, Continuous Positive Airway Pressure (ICD-10-PCS; 2019-06-03)
PROC: 5A1D70Z Performance of Urinary Filtration, Intermittent, Less than 6 Hours Per Day (ICD-10-PCS; 2019-06-05)
DX: J96.01 Acute respiratory failure with hypoxia (principal); G93.41 Metabolic encephalopathy; N18.6 End stage renal disease; I12.0 Hypertensive chronic kidney disease with stage 5 chronic kidney disease or end stage renal disease; E66.2 Morbid (severe) obesity with alveolar hypoventilation; E87.70 Fluid overload, unspecified; R00.1 Bradycardia, unspecified; E87.5 Hyperkalemia; Z79.4 Long term (current) use of insulin; Z79.899 Other long term (current) drug therapy; Z87.891 Personal history of nicotine dependence; Z68.36 Body mass index [BMI] 36.0-36.9, adult; Z82.49 Family history of ischemic heart disease and other diseases of the circulatory system; Z83.3 Family history of diabetes mellitus; Z91.14 Patient's other noncompliance with medication regimen
CPT/HCPCS: 36415; 71045; 80048; 80074; 80076; 82803; 82962; 83880; 84100; 85025; 85027; 85610; 85730; 93005; 93010; 93306; 94644; 94660; 94760; 96374; 96375; G0378; A9270-GY; J0360; J0461; J0610; J1644; J1815; J7030; J7050